=== PATIENT | female | born 1945 | race Caucasian/White ===

== ENCOUNTER 2019-09-22 07:29 | Outpatient (CLI) | payer MEDICARE, OTHER, SELFPAY ==
[2019-09-22 09:07] LABS: Alanine Aminotransferase 17 U/L (4-35); Albumin Level 4.5 g/dL (3.5-5.1); Alkaline Phosphatase 71 U/L (38-126); Aspartate Amino Transferase 27 U/L (14-36); Bilirubin,Total 0.6 mg/dL (0.2-1.3); Blood Urea Nitrogen 14 mg/dL (7-17); Calcium 9.7 mg/dL (8.4-10.2); Carbon Dioxide 29 mmol/L (22-30); Chloride 102 mmol/L (98-107); Estimated Glomerular Filt Rate > 60; Glucose 103 mg/dL (65-105); Potassium 4.3 mmol/L (3.4-5.0); Sodium 135 mmol/L (137-145)
[2019-09-22 09:26] LABS: Parathyroid Intact 43.8 pg/mL (7.5-53.5)
[2019-09-22 09:44] LABS: Vitamin D 25 Hydroxy 69.4 ng/mL
[2019-09-26 19:07] LABS: Collagen Type I C-Telopeptide 308 pg/mL (***)
[2019-09-27 12:07] LABS: Osteocalcin 11 ng/mL (8-32)
== END 2019-09-22 07:30 | disposition home or self-care (01) ==
PROVIDERS: PCP Internal Medicine
DX: M81.0 Age-related osteoporosis without current pathological fracture (principal); Z86.39 Personal history of other endocrine, nutritional and metabolic disease
CPT/HCPCS: 36415; 80053; 82306; 82523; 83937; 83970; 84155; 84165; 84443

== ENCOUNTER 2019-09-24 08:27 | Outpatient (CLI) | payer MEDICARE, OTHER, SELFPAY ==
[2019-09-28 05:43] LABS: Total Volume 2500 mL; Urine Calcium 9.8 mg/dL
== END 2019-09-24 08:28 | disposition home or self-care (01) ==
LOC: ANHLAB 08:28
PROVIDERS: PCP Internal Medicine
DX: M81.0 Age-related osteoporosis without current pathological fracture (principal); Z86.39 Personal history of other endocrine, nutritional and metabolic disease
CPT/HCPCS: 82340

== ENCOUNTER 2019-12-06 11:05 | Outpatient (CLI) | payer MEDICARE, OTHER, SELFPAY ==
[2019-12-06 11:49] LABS: Basophils Absolute Auto 0.1 K/mm3 (0.0-0.1); Eosinophils Absolute Auto 0.4 K/mm3 (0-0.3); Eosinophils Percent Auto 5.2 % (0-4.4); Hematocrit 42.3 % (37.0-47.0); Immature Granulocyte Absolute 0.02 K/mm3 (0.00-0.031); Immature Granulocyte Percent A 0.3 % (0-0.5); Lymphocytes Absolute Auto 1.59 K/mm3 (0.9-3.2); Lymphocytes Percent Auto 20.5 % (18.3-44.2); Mean Corpuscular HGB Conc 33.1 g/dl (32-36); Mean Corpuscular Hemoglobin 31.5 pg (26-34); Mean Corpuscular Volume 95.3 fl (80-100); Monocytes Absolute Auto 0.5 K/mm3 (0.1-0.6); Monocytes Percent Auto 6.8 % (2.6-8.5); Neutrophils Absolute Auto 5.1 K/mm3 (1.3-6.7); Neutrophils Percent Auto 66.2 % (45.5-73.1); Platelet Count Result 289 k/mm3 (150-375); Red Blood Count 4.44 M/mm3 (4.2-5.4); Red Cell Distribution Width 12.5 % (11.5-14.5); White Blood Count 7.8 K/mm3 (4.5-10.0)
[2019-12-06 12:01] LABS: Blood Urea Nitrogen 12 mg/dL (7-17); Carbon Dioxide 29 mmol/L (22-30); Chloride 100 mmol/L (98-107); Cholesterol 233 mg/dL (0-200); Estimated Glomerular Filt Rate > 60; Glucose 119 mg/dL (65-105); HDL Direct 98 mg/dL; Magnesium 2.1 mg/dL (1.6-2.3); Potassium 3.9 mmol/L (3.4-5.0); Sodium 134 mmol/L (137-145); Triglycerides 70 mg/dL (<150)
[2019-12-06 12:07] LABS: Hemoglobin A1C 5.7 % (<5.7)
[2019-12-06 12:12] LABS: LDL Cholesterol Direct 114 mg/dL
[2019-12-06 12:25] LABS: Free T4 Free Thyroxine 0.73 ng/mL (0.78-2.19)
== END 2019-12-06 11:06 | disposition home or self-care (01) ==
PROVIDERS: PCP Internal Medicine; Visit Provider Internal Medicine
DX: R73.03 Prediabetes (principal); Z79.899 Other long term (current) drug therapy
CPT/HCPCS: 36415; 80048; 80061; 83036; 83735; 84439; 84443; 85025

== ENCOUNTER 2019-12-09 13:27 | Outpatient (CLI) | payer MEDICARE, OTHER, SELFPAY ==
--- NOTE | 2019-12-09 | ECHO_ITS ---
Patient Info Name: Brooke Cruz Age: 74 years : 1945 Gender: Female Ht: 62 in Wt: 115 lbs BSA: 1.51 m2 HR: 43 bpm BP: 163 / 82 mmHg Technical Quality: Good Exam Date: 12/09/2019 1:46 PM Exam Location: [facility] Patient Status: Outpatient Admit Date: 12/09/2019 Staff Ordering Physician: Albert Taylor MD Risk Assessment Analyst: Angela Sarmiento RDCS Attending Provider: Albert Taylor MD Referring Physician: Claudia MATT; Exam Type: CA echo doppler color flow Study Info Indications - SYNCOPE /COLLASPE Complete two-dimensional, color flow and Doppler transthoracic echocardiogram is performed. Summary 1. Left ventricular chamber dimension is normal. 2. Left ventricular systolic function is normal, estimated at 60-65%. 3. The left ventricular diastolic function is normal. 4. E/e' 9 is minimally elevated. 5. Left atrial chamber dimension is mildly enlarged. 6. Right atrial chamber dimension is mildly enlarged. 7. There is trace aortic valve regurgitation. 8. There is mild mitral valve regurgitation. 9. There is mild tricuspid valve regurgitation. 10. No pulmonary hypertension, estimated pulmonary arterial systolic pressure is 37 mmHg. Left Ventricle E/e' 9 is minimally elevated. Left ventricular chamber dimension is normal. Left ventricular systolic function is normal, estimated at 60-65%. The left ventricular diastolic function is normal. Right Ventricle Right ventricular chamber dimension is normal. Right ventricular systolic function is normal. Left Atria Left atrial chamber dimension is mildly enlarged. Right Atria Right atrial chamber dimension is mildly enlarged. Aortic Valve The aortic valve is trileaflet. There is no aortic valve stenosis. There is trace aortic valve regurgitation. Pulmonic Valve There is no pulmonic regurgitation. Mitral Valve There is no mitral valve stenosis. There is mild mitral valve regurgitation. Tricuspid Valve There is mild tricuspid valve regurgitation. No pulmonary hypertension, estimated pulmonary arterial systolic pressure is 37 mmHg. Pericardium/Pleural There is no pericardial effusion. Inferior Vena Cava Normal inferior vena cava with >50% collapse upon inspiration consistent with normal right atrial pressure, 5 mmHg. Aorta The aortic root size at the sinus of Valsalva is normal. Left Ventricular Outflow Tract Name Value Normal LVOT 2D LVOT Diameter 2.0 cm LVOT Doppler LVOT Peak Gradient 5 mmHg LVOT Mean Gradient 2 mmHg LVOT VTI 22 cm LVOT VTI/AV VTI Ratio 0.8 LVOT Stroke Volume 66 ml LVOT CO 12.2 l/min LVOT CI 8.1 l/min/m2 Pulmonic Valve Name Value Normal PV Doppler
--- NOTE | 2019-12-13 14:29 | WPDHOLTEREM ---
Holter/Event Monitor Holter/Event Monitor Date of procedure: 12/09/19 Procedure Type: 48 hour holter monitor Indications: Syncope Conclusion: 1. 48 hour holter monitor on 12/09/19. 2. Underlying rhythm is sinus rhythm. HR range 44-105 bpm; average HR 65 bpm. 3. There are 149 premature supraventricular complexes and 11 supraventricular couplets and 1 supraventricular triplet. No supraventricular tachycardia. 4. There are 10,081 premature ventricular complexes, 1,211 ventriuclar bigeminy, 13,551 ventricular trigeminy, 15 ventricular couplets. No ventricular tachycardia. 5. No sinoatrial or atrioventricular blocks. No significant pauses greater than 2 seconds. 6. Patient reports symptoms of lightheadedness, dizziness, shortness of breath that demonstrate 56-71 bpm and PVC's.
== END 2019-12-09 13:28 | disposition home or self-care (01) ==
PROVIDERS: PCP Internal Medicine; Visit Provider Internal Medicine
DX: R55 Syncope and collapse (principal); I36.1 Nonrheumatic tricuspid (valve) insufficiency; I34.0 Nonrheumatic mitral (valve) insufficiency
CPT/HCPCS: 93225; 93226; 93306

== ENCOUNTER 2020-07-18 08:57 | Outpatient (CLI) | payer MEDICARE, OTHER, SELFPAY ==
[2020-07-18 09:51] LABS: Basophils Absolute Auto 0.1 K/mm3 (0.0-0.1); Basophils Percent Auto 1.5 % (0.2-1.2); Eosinophils Absolute Auto 0.5 K/mm3 (0-0.3); Eosinophils Percent Auto 7.6 % (0-4.4); Hematocrit 43.9 % (37.0-47.0); Hemoglobin 14.1 g/dL (12.0-15.0); Immature Granulocyte Absolute 0.03 K/mm3 (0.00-0.031); Immature Granulocyte Percent A 0.4 % (0-0.5); Lymphocytes Absolute Auto 1.65 K/mm3 (0.9-3.2); Mean Corpuscular HGB Conc 32.1 g/dl (32-36); Mean Corpuscular Volume 96.5 fl (80-100); Mean Platelet Volume 10.5 fl (7.4-10.4); Monocytes Absolute Auto 0.6 K/mm3 (0.1-0.6); Monocytes Percent Auto 8.7 % (2.6-8.5); Neutrophils Percent Auto 57.8 % (45.5-73.1); Platelet Count Result 340 k/mm3 (150-375); Red Blood Count 4.55 M/mm3 (4.2-5.4); Red Cell Distribution Width 12.6 % (11.5-14.5); White Blood Count 6.9 K/mm3 (4.5-10.0)
[2020-07-18 09:54] LABS: Add Urine Microscopic? YES; Amorphous Sediment Urine Few; Appearance Urine Cloudy (Clear); Bacteria Urine Trace /hpf; Bilirubin Urine Negative (Negative); Blood Urine Negative (Negative); Color Urine Yellow (Yellow); Glucose Urine UA Negative (Negative); Ketones Urine Negative (Negative); Leukocyte Esterase Ur 3+ LEU/UL (NEGATIVE); Nitrate Urine Negative (Negative); Protein Urine Negative (Negative); Specific Grav Ur 1.012 (1.001-1.035); Squamous Epithelial Cell Urine Rare /hpf (Few); Urobilinogen Urine Negative mg/dL (<2.0)
[2020-07-18 10:15] LABS: Alanine Aminotransferase 16 U/L (4-35); Albumin Level 4.4 g/dL (3.5-5.1); Alkaline Phosphatase 74 U/L (38-126); Anion Gap 7 mmol/L (8-16); Aspartate Amino Transferase 31 U/L (14-36); Bilirubin,Total 0.5 mg/dL (0.2-1.3); Blood Urea Nitrogen 11 mg/dL (7-17); Calcium 9.2 mg/dL (8.4-10.2); Carbon Dioxide 28 mmol/L (22-30); Chloride 98 mmol/L (98-107); Cholesterol 246 mg/dL (0-200); Estimated Glomerular Filt Rate > 60; Glucose 90 mg/dL (65-105); HDL Direct 102 mg/dL; Sodium 133 mmol/L (137-145); Triglycerides 93 mg/dL (<150)
[2020-07-18 10:26] LABS: LDL Cholesterol Direct 115 mg/dL
[2020-07-18 10:51] LABS: Hemoglobin A1C 5.5 % (<5.7)
[2020-07-21 12:44] LABS: Homocysteine 10.1 umol/L (<10.4)
[2020-07-23 00:07] LABS: Vitamin D 1,25 (OH)2 Total 38 pg/mL (18-72); Vitamin D2 1,25 (OH)2 <8 pg/mL; Vitamin D3 1,25 (OH)2 38 pg/mL
== END 2020-07-18 08:58 | disposition home or self-care (01) ==
PROVIDERS: PCP Internal Medicine; Visit Provider Internal Medicine
DX: R73.03 Prediabetes (principal); E55.9 Vitamin D deficiency, unspecified; I10 Essential (primary) hypertension; R79.89 Other specified abnormal findings of blood chemistry; Z51.81 Encounter for therapeutic drug level monitoring; Z79.899 Other long term (current) drug therapy
CPT/HCPCS: 36415; 80053; 80061; 81001; 82652; 83036; 83090; 84443; 85025

== ENCOUNTER 2020-11-14 06:58 | Outpatient (CLI) | payer MEDICARE, SELFPAY ==
[2020-11-14 07:38] LABS: Hemoglobin A1C 5.6 % (<5.7)
[2020-11-14 07:40] LABS: Anion Gap 6 mmol/L (8-16); Blood Urea Nitrogen 14 mg/dL (7-17); Calcium 9.4 mg/dL (8.4-10.2); Carbon Dioxide 28 mmol/L (22-30); Chloride 102 mmol/L (98-107); Cholesterol 253 mg/dL (0-200); Estimated Glomerular Filt Rate > 60; Glucose 105 mg/dL (65-105); HDL Direct 108 mg/dL; Potassium 4.9 mmol/L (3.4-5.0); Sodium 136 mmol/L (137-145); Triglycerides 76 mg/dL (<150)
[2020-11-14 07:50] LABS: LDL Cholesterol Direct 121 mg/dL
== END 2020-11-14 06:59 | disposition home or self-care (01) ==
PROVIDERS: PCP Internal Medicine; Visit Provider Internal Medicine
DX: I10 Essential (primary) hypertension (principal); R73.03 Prediabetes; Z79.899 Other long term (current) drug therapy
CPT/HCPCS: 36415; 80048; 80061; 83036

== ENCOUNTER 2020-11-20 15:36 | Outpatient (CLI) | payer MEDICARE, SELFPAY ==
--- NOTE | ~2020-11-20 | MM_ITS ---
EXAMINATION: MM screening tye BI w anette HISTORY: Screening TECHNIQUE: Craniocaudal and mediolateral oblique 3-D tomosynthesis images were obtained and synthetic 2-D images were generated. CAD analysis was submitted and interpreted. COMPARISON: Comparison to multiple prior studies sequentially, with oldest reviewed study dated 10/31. BREAST PARENCHYMAL COMPOSITION: The breasts are extremely dense, which lowers the sensitivity of mamm ography FINDINGS: There is no evidence of suspicious mass, calcification, or architectural distortion to sugg est malignancy in either breast. There has been no suspicious interval change. IMPRESSION: 1. No mammographic evidence of malignancy. 2. Recommend routine screening mammography in one year. BI-RADS Category 1: Negative Reviewed, dictated and finalized at location A.
== END 2020-11-20 15:37 | disposition home or self-care (01) ==
LOC: ANHIMG 15:43
PROVIDERS: PCP Internal Medicine; Visit Provider Internal Medicine
DX: Z12.31 Encounter for screening mammogram for malignant neoplasm of breast (principal)
CPT/HCPCS: 77063; 77067

== ENCOUNTER 2021-04-08 07:07 | Outpatient (CLI) | payer MEDICARE, SELFPAY ==
[2021-04-08 07:46] LABS: Alanine Aminotransferase 14 U/L (4-35); Albumin Level 4.6 g/dL (3.5-5.1); Alkaline Phosphatase 79 U/L (38-126); Anion Gap 8 mmol/L (8-16); Aspartate Amino Transferase 25 U/L (14-36); Bilirubin,Total 0.3 mg/dL (0.2-1.3); Blood Urea Nitrogen 10 mg/dL (7-17); Calcium 9.7 mg/dL (8.4-10.2); Carbon Dioxide 28 mmol/L (22-30); Chloride 99 mmol/L (98-107); Cholesterol 254 mg/dL (0-200); Estimated Glomerular Filt Rate > 60; Glucose 106 mg/dL (65-110); HDL Direct 106 mg/dL; Sodium 135 mmol/L (137-145); Triglycerides 71 mg/dL (<150)
[2021-04-08 07:57] LABS: LDL Cholesterol Direct 108 mg/dL
[2021-04-08 12:35] LABS: Hemoglobin A1C 5.6 % (<5.7)
[2021-04-12 04:33] LABS: Homocysteine 12.4 umol/L (<10.4)
[2021-04-12 16:38] LABS: Vitamin D 1,25 (OH)2 Total 53 pg/mL (18-72); Vitamin D2 1,25 (OH)2 <8 pg/mL; Vitamin D3 1,25 (OH)2 53 pg/mL
== END 2021-04-08 07:08 | disposition home or self-care (01) ==
PROVIDERS: PCP Internal Medicine; Visit Provider Internal Medicine
DX: E55.9 Vitamin D deficiency, unspecified (principal); I10 Essential (primary) hypertension; Z79.899 Other long term (current) drug therapy; R73.03 Prediabetes; R79.89 Other specified abnormal findings of blood chemistry
CPT/HCPCS: 36415; 80053; 80061; 82652; 83036; 83090; 84439; 84443

== ENCOUNTER 2021-10-15 07:43 | Outpatient (CLI) | payer MEDICARE, SELFPAY ==
[2021-10-15 08:16] LABS: Basophils Absolute Auto 0.1 K/mm3 (0.0-0.1); Basophils Percent Auto 1.7 % (0.2-1.2); Eosinophils Absolute Auto 0.4 K/mm3 (0-0.3); Eosinophils Percent Auto 6.5 % (0-4.4); Hemoglobin 13.9 g/dL (12.0-15.0); Immature Granulocyte Absolute 0.03 K/mm3 (0.00-0.031); Immature Granulocyte Percent A 0.6 % (0-0.5); Lymphocytes Absolute Auto 1.36 K/mm3 (0.9-3.2); Lymphocytes Percent Auto 25.3 % (18.3-44.2); Mean Corpuscular HGB Conc 33.1 g/dl (32-36); Mean Corpuscular Volume 96.8 fl (80-100); Mean Platelet Volume 10.2 fl (7.4-10.4); Monocytes Absolute Auto 0.5 K/mm3 (0.1-0.6); Monocytes Percent Auto 9.3 % (2.6-8.5); Neutrophils Absolute Auto 3.1 K/mm3 (1.3-6.7); Neutrophils Percent Auto 56.6 % (45.5-73.1); Platelet Count Result 309 k/mm3 (150-375); Red Blood Count 4.34 M/mm3 (4.2-5.4); Red Cell Distribution Width 12.6 % (11.5-14.5); White Blood Count 5.4 K/mm3 (4.5-10.0)
[2021-10-15 08:22] LABS: Alanine Aminotransferase 16 U/L (4-35); Albumin Level 4.4 g/dL (3.5-5.1); Alkaline Phosphatase 76 U/L (38-126); Anion Gap 5 mmol/L (8-16); Aspartate Amino Transferase 27 U/L (14-36); Bilirubin,Total 0.4 mg/dL (0.2-1.3); Blood Urea Nitrogen 19 mg/dL (7-17); Calcium 9.1 mg/dL (8.4-10.2); Carbon Dioxide 28 mmol/L (22-30); Chloride 101 mmol/L (98-107); Cholesterol 264 mg/dL (0-200); Estimated Glomerular Filt Rate > 60; Glucose 67 mg/dL (65-110); HDL Direct 84 mg/dL; Sodium 134 mmol/L (137-145); Triglycerides 81 mg/dL (<150)
[2021-10-15 08:32] LABS: LDL Cholesterol Direct 124 mg/dL
[2021-10-15 08:33] LABS: Hemoglobin A1C 5.5 % (<5.7)
[2021-10-15 08:37] LABS: Free T4 Free Thyroxine 0.75 ng/mL (0.78-2.19); Vitamin D 25 Hydroxy 77.2 ng/mL
[2021-10-15 12:15] LABS: Appearance Urine Clear (Clear); Bilirubin Urine Negative (Negative); Color Urine Yellow (Yellow); Glucose Urine UA Negative (Negative); Ketones Urine Negative (Negative); Leukocyte Esterase Ur Trace LEU/UL (Negative); Nitrate Urine Negative (Negative); Protein Urine Negative (Negative); Specific Grav Ur 1.015 (1.001-1.035); Urobilinogen Urine 0.2 mg/dL (<2.0)
[2021-10-15 12:33] LABS: Add Urine Microscopic? YES; Blood Urine Trace-Intact (Negative)
[2021-10-15 12:34] LABS: Bacteria Urine Trace /hpf; RBC Urine 0-2 /hpf (0-2); Squamous Epithelial Cell Urine Rare /hpf (Few)
== END 2021-10-15 07:44 | disposition home or self-care (01) ==
LOC: ANHLAB 07:48
PROVIDERS: PCP Internal Medicine; Visit Provider Internal Medicine
DX: R73.03 Prediabetes (principal); Z79.899 Other long term (current) drug therapy; E55.9 Vitamin D deficiency, unspecified; I10 Essential (primary) hypertension; R79.89 Other specified abnormal findings of blood chemistry
CPT/HCPCS: 36415; 80053; 80061; 81001; 82306; 83036; 83090; 84439; 84443; 85025

== ENCOUNTER 2021-12-31 07:54 | Outpatient (CLI) | payer MEDICARE, SELFPAY ==
[2021-12-31 08:28] LABS: Alanine Aminotransferase 18 U/L (6-35); Albumin Level 4.8 g/dL (3.5-5.1); Alkaline Phosphatase 71 U/L (38-126); Aspartate Amino Transferase 25 U/L (14-36); Bilirubin,Total 0.3 mg/dL (0.2-1.3); Cholesterol 235 mg/dL (0-200); HDL Direct 99 mg/dL; Triglycerides 72 mg/dL (<150)
[2021-12-31 08:40] LABS: LDL Cholesterol Direct 105 mg/dL
== END 2021-12-31 07:55 | disposition home or self-care (01) ==
LOC: ANHLAB 07:57
PROVIDERS: PCP Internal Medicine; Visit Provider Internal Medicine
DX: E78.5 Hyperlipidemia, unspecified (principal)
CPT/HCPCS: 36415; 80061; 80076

== ENCOUNTER 2022-01-09 07:17 | Outpatient (CLI) | payer MEDICARE, SELFPAY ==
--- NOTE | ~2022-01-09 | MM_ITS ---
EXAMINATION: MM screening tye BI w anette HISTORY: Screening mammogram TECHNIQUE: Craniocaudal and mediolateral oblique 3-D tomosynthesis images were obtained and synthetic 2-D images were generated. CAD analysis was submitted and interpreted. COMPARISON: 11/20/2021, 11/2020, 11/23/2018, 11/09/2017 bilateral screening mammogram examinations BREAST PARENCHYMAL COMPOSITION: The breasts are heterogeneously dense, which may obscure small masses . FINDINGS: There is no evidence of suspicious mass, calcification, or architectural distortion to sugg est malignancy in either breast. There has been no suspicious interval change. IMPRESSION: 1. No mammographic evidence of malignancy. 2. Recommend routine screening mammography in one year. BI-RADS Category 1: Negative Reviewed, dictated and finalized at location A.
== END 2022-01-09 07:18 | disposition home or self-care (01) ==
LOC: ANHIMG 07:19
PROVIDERS: PCP Internal Medicine; Visit Provider Internal Medicine
DX: Z12.31 Encounter for screening mammogram for malignant neoplasm of breast (principal)
CPT/HCPCS: 77063; 77067

== ENCOUNTER 2022-04-30 08:56 | Outpatient (CLI) | payer MEDICARE, SELFPAY ==
[2022-04-30 09:25] LABS: Alanine Aminotransferase 21 U/L (6-35); Albumin Level 4.6 g/dL (3.5-5.1); Alkaline Phosphatase 69 U/L (38-126); Anion Gap 11 mmol/L (8-16); Aspartate Amino Transferase 27 U/L (14-36); Bilirubin,Total 0.4 mg/dL (0.2-1.3); Blood Urea Nitrogen 13 mg/dL (7-17); Calcium 9.6 mg/dL (8.4-10.2); Carbon Dioxide 27 mmol/L (22-30); Chloride 97 mmol/L (98-107); Cholesterol 201 mg/dL (0-200); Estimated Glomerular Filt Rate > 60; Glucose 93 mg/dL (65-110); HDL Direct 85 mg/dL; Potassium 3.9 mmol/L (3.4-5.0); Sodium 135 mmol/L (137-145); Triglycerides 85 mg/dL (<150)
[2022-04-30 09:36] LABS: LDL Cholesterol Direct 79 mg/dL
[2022-04-30 09:45] LABS: Hemoglobin A1C 5.9 % (<5.7)
[2022-04-30 09:58] LABS: Free T4 Free Thyroxine 0.77 ng/mL (0.78-2.19); Vitamin D 25 Hydroxy 66.6 ng/mL
== END 2022-04-30 08:57 | disposition home or self-care (01) ==
LOC: ANHLAB 08:58
PROVIDERS: PCP Internal Medicine; Visit Provider Internal Medicine
DX: E55.9 Vitamin D deficiency, unspecified (principal); Z51.81 Encounter for therapeutic drug level monitoring; Z79.899 Other long term (current) drug therapy; Z13.29 Encounter for screening for other suspected endocrine disorder; R73.03 Prediabetes; E78.5 Hyperlipidemia, unspecified
CPT/HCPCS: 36415; 80053; 80061; 82306; 83036; 84439; 84443

== ENCOUNTER 2022-06-03 13:39 | Outpatient (CLI) | payer MEDICARE, SELFPAY ==
--- NOTE | ~2022-06-03 | XR_ITS ---
XR chest 2V DATE: 06/03/2022 14:02 INDICATION: Shortness of breath TECHNIQUE: PA and lateral views COMPARISON: October 19, 2018 2 view chest FINDINGS: Mild cardiac megaly. Mild aortic and great vessel calcification. No hilar or mediastinal en largement. There is old pulmonary granulomatous disease. No pulmonary infiltrate or consolidation, pleural effusion or pulmonary vascular congestion or pneumo thorax. Osteopenia. There is mild thoracic dextro scoliosis and lumbar levoscoliosis. IMPRESSION: Cardiomegaly, aortic atherosclerosis No active pulmonary disease Osteopenia Reviewed, dictated and finalized at location A. L FABRICATOR APPRENTICE
[2022-06-03 13:52] LABS: Basophils Absolute Auto 0.1 K/mm3 (0.0-0.1); Basophils Percent Auto 0.9 % (0.2-1.2); Eosinophils Absolute Auto 0.2 K/mm3 (0-0.3); Eosinophils Percent Auto 2.3 % (0-4.4); Hemoglobin 13.2 g/dL (12.0-15.0); Immature Granulocyte Absolute 0.05 K/mm3 (0.00-0.031); Immature Granulocyte Percent A 0.7 % (0-0.5); Lymphocytes Percent Auto 26.1 % (18.3-44.2); Mean Corpuscular HGB Conc 32.2 g/dl (32-36); Mean Corpuscular Hemoglobin 31.7 pg (26-34); Mean Corpuscular Volume 98.3 fl (80-100); Mean Platelet Volume 9.5 fl (7.4-10.4); Monocytes Absolute Auto 0.6 K/mm3 (0.1-0.6); Neutrophils Absolute Auto 4.2 K/mm3 (1.3-6.7); Platelet Count Result 345 k/mm3 (150-375); Red Blood Count 4.17 M/mm3 (4.2-5.4); Red Cell Distribution Width 12.4 % (11.5-14.5); White Blood Count 6.9 K/mm3 (4.5-10.0)
== END 2022-06-03 13:40 | disposition home or self-care (01) ==
PROVIDERS: PCP Internal Medicine; Visit Provider Internal Medicine
DX: R06.02 Shortness of breath (principal); M85.88 Other specified disorders of bone density and structure, other site; I70.0 Atherosclerosis of aorta; I51.7 Cardiomegaly
CPT/HCPCS: 36415; 71046; 85025

== ENCOUNTER 2022-09-24 09:49 | Outpatient (CLI) | payer MEDICARE, SELFPAY ==
[2022-09-24 10:56] LABS: Alanine Aminotransferase 20 U/L (6-35); Albumin Level 4.5 g/dL (3.5-5.1); Alkaline Phosphatase 78 U/L (38-126); Anion Gap 5 mmol/L (8-16); Aspartate Amino Transferase 27 U/L (14-36); Bilirubin,Total 0.5 mg/dL (0.2-1.3); Blood Urea Nitrogen 16 mg/dL (7-17); Calcium 9.1 mg/dL (8.4-10.2); Carbon Dioxide 28 mmol/L (22-30); Chloride 101 mmol/L (98-107); Cholesterol 200 mg/dL (0-200); Estimated Glomerular Filt Rate > 60; Glucose 88 mg/dL (65-110); HDL Direct 74 mg/dL; Potassium 4.1 mmol/L (3.4-5.0); Sodium 134 mmol/L (137-145); Triglycerides 63 mg/dL (<150)
[2022-09-24 11:06] LABS: LDL Cholesterol Direct 89 mg/dL
[2022-09-24 11:19] LABS: Hemoglobin A1C 5.4 % (<5.7)
[2022-09-24 12:02] LABS: Folic Acid > 20.0 ng/mL (2.76->20)
[2022-09-24 12:40] LABS: Free T4 Free Thyroxine 0.87 ng/mL (0.78-2.19)
== END 2022-09-24 09:50 | disposition home or self-care (01) ==
LOC: ANHLAB 09:51
PROVIDERS: PCP Internal Medicine; Visit Provider Internal Medicine
DX: E78.5 Hyperlipidemia, unspecified (principal); I10 Essential (primary) hypertension; E53.8 Deficiency of other specified B group vitamins; Z13.29 Encounter for screening for other suspected endocrine disorder; Z79.899 Other long term (current) drug therapy; R73.03 Prediabetes
CPT/HCPCS: 36415; 80053; 80061; 82607; 82746; 83036; 84439; 84443

== ENCOUNTER 2023-04-27 09:32 | Outpatient (CLI) | payer MEDICARE, SELFPAY ==
[2023-04-27 19:47] LABS: Alanine Aminotransferase 22 U/L (6-35); Albumin Level 4.6 g/dL (3.5-5.1); Alkaline Phosphatase 82 U/L (38-126); Anion Gap 6 mmol/L (8-16); Aspartate Amino Transferase 34 U/L (14-36); Bilirubin,Total 0.5 mg/dL (0.2-1.3); Blood Urea Nitrogen 15 mg/dL (7-17); Calcium 9.5 mg/dL (8.4-10.2); Carbon Dioxide 29 mmol/L (22-30); Chloride 98 mmol/L (98-107); Cholesterol 225 mg/dL (0-200); Estimated Glomerular Filt Rate > 60; Glucose 104 mg/dL (65-110); HDL Direct 97 mg/dL; Potassium 4.3 mmol/L (3.4-5.0); Sodium 133 mmol/L (137-145); Triglycerides 75 mg/dL (<150)
[2023-04-27 19:57] LABS: LDL Cholesterol Direct 102 mg/dL
[2023-04-27 20:14] LABS: Thyroid Stimulating Hormone 0.948 uIU/mL (0.465-4.680)
[2023-04-27 20:19] LABS: Free T4 Free Thyroxine 0.82 ng/mL (0.78-2.19); Vitamin D 25 Hydroxy 66.5 ng/mL
[2023-04-27 20:46] LABS: Basophils Absolute Auto 0.1 K/mm3 (0.0-0.1); Basophils Percent Auto 1.2 % (0.2-1.2); Eosinophils Absolute Auto 0.4 K/mm3 (0-0.3); Eosinophils Percent Auto 5.5 % (0-4.4); Hematocrit 43.1 % (37.0-47.0); Immature Granulocyte Absolute 0.02 K/mm3 (0.00-0.031); Immature Granulocyte Percent A 0.3 % (0-0.5); Lymphocytes Absolute Auto 1.34 K/mm3 (0.9-3.2); Lymphocytes Percent Auto 19.3 % (18.3-44.2); Mean Corpuscular HGB Conc 32.5 g/dl (32-36); Mean Corpuscular Hemoglobin 32.3 pg (26-34); Mean Corpuscular Volume 99.5 fl (80-100); Mean Platelet Volume 10.7 fl (7.4-10.4); Monocytes Absolute Auto 0.5 K/mm3 (0.1-0.6); Monocytes Percent Auto 7.1 % (2.6-8.5); Neutrophils Absolute Auto 4.6 K/mm3 (1.3-6.7); Neutrophils Percent Auto 66.6 % (45.5-73.1); Platelet Count Result 327 k/mm3 (150-375); Red Blood Count 4.33 M/mm3 (4.2-5.4); Red Cell Distribution Width 12.5 % (11.5-14.5); White Blood Count 6.9 K/mm3 (4.5-10.0)
== END 2023-04-27 09:33 | disposition home or self-care (01) ==
PROVIDERS: PCP Internal Medicine; Visit Provider Internal Medicine
DX: E55.9 Vitamin D deficiency, unspecified (principal); Z13.29 Encounter for screening for other suspected endocrine disorder; Z79.899 Other long term (current) drug therapy; E78.5 Hyperlipidemia, unspecified; I10 Essential (primary) hypertension
CPT/HCPCS: 36415; 80053; 80061; 82306; 84439; 84443; 85025

== ENCOUNTER 2023-06-29 11:47 | Outpatient (CLI) | payer MEDICARE, SELFPAY ==
--- NOTE | ~2023-06-29 | MM_ITS ---
EXAMINATION: MM screening tye BI w anette HISTORY: Screening TECHNIQUE: Craniocaudal and mediolateral oblique 3-D tomosynthesis images were obtained and synthetic 2-D images were generated. CAD analysis was submitted and interpreted. COMPARISON: Comparison to multiple prior studies sequentially, with oldest reviewed study dated 10/31. BREAST PARENCHYMAL COMPOSITION: The breasts are heterogeneously dense, which may obscure small masses FINDINGS: There is no evidence of suspicious mass, calcification, or architectural distortion to sugg est malignancy in either breast. There has been no suspicious interval change. IMPRESSION: 1. No mammographic evidence of malignancy. 2. Recommend routine screening mammography in one year. BI-RADS Category 1: Negative Reviewed, dictated and finalized at location A. LER
== END 2023-06-29 11:48 | disposition home or self-care (01) ==
LOC: ANHIMG 11:50
PROVIDERS: PCP Internal Medicine; Visit Provider Internal Medicine
DX: Z12.31 Encounter for screening mammogram for malignant neoplasm of breast (principal)
CPT/HCPCS: 77063; 77067

== ENCOUNTER 2023-12-03 09:35 | Outpatient (CLI) | payer MEDICARE, SELFPAY ==
[2023-12-03 19:11] LABS: Basophils Absolute Auto 0.1 K/mm3 (0.0-0.1); Basophils Percent Auto 1.4 % (0.2-1.2); Eosinophils Absolute Auto 0.6 K/mm3 (0-0.3); Hematocrit 41.6 % (37.0-47.0); Hemoglobin 13.6 g/dL (12.0-15.0); Immature Granulocyte Absolute 0.03 K/mm3 (0.00-0.031); Immature Granulocyte Percent A 0.4 % (0-0.5); Lymphocytes Absolute Auto 1.44 K/mm3 (0.9-3.2); Lymphocytes Percent Auto 17.7 % (18.3-44.2); Mean Corpuscular HGB Conc 32.7 g/dl (32-36); Mean Corpuscular Hemoglobin 32.2 pg (26-34); Mean Corpuscular Volume 98.3 fl (80-100); Mean Platelet Volume 10.8 fl (7.4-10.4); Monocytes Absolute Auto 0.6 K/mm3 (0.1-0.6); Monocytes Percent Auto 7.5 % (2.6-8.5); Neutrophils Absolute Auto 5.4 K/mm3 (1.3-6.7); Platelet Count Result 287 k/mm3 (150-375); Red Blood Count 4.23 M/mm3 (4.2-5.4); Red Cell Distribution Width 13.1 % (11.5-14.5); White Blood Count 8.1 K/mm3 (4.5-10.0)
[2023-12-03 19:33] LABS: Alanine Aminotransferase 20 U/L (6-35); Albumin Level 4.5 g/dL (3.5-5.1); Alkaline Phosphatase 83 U/L (38-126); Anion Gap 8 mmol/L (4-12); Aspartate Amino Transferase 31 U/L (14-36); Bilirubin,Total 0.5 mg/dL (0.2-1.3); Blood Urea Nitrogen 13 mg/dL (7-17); Calcium 9.8 mg/dL (8.4-10.2); Carbon Dioxide 27 mmol/L (22-30); Chloride 99 mmol/L (98-107); Cholesterol 210 mg/dL (0-200); Estimated Glomerular Filt Rate > 60; Glucose 82 mg/dL (65-110); HDL Direct 92 mg/dL; Potassium 4.2 mmol/L (3.4-5.0); Sodium 134 mmol/L (137-145); Triglycerides 81 mg/dL (<150)
[2023-12-03 19:46] LABS: LDL Cholesterol Direct 97 mg/dL
[2023-12-03 20:04] LABS: Free T4 Free Thyroxine 0.84 ng/mL (0.78-2.19); Vitamin D 25 Hydroxy 84.6 ng/mL
[2023-12-03 21:55] LABS: Hemoglobin A1C 5.6 % (<5.7)
== END 2023-12-03 09:36 | disposition home or self-care (01) ==
LOC: ANHGOSHLAB 09:37
PROVIDERS: PCP Internal Medicine; Visit Provider Internal Medicine
DX: E78.5 Hyperlipidemia, unspecified (principal); I10 Essential (primary) hypertension; E55.9 Vitamin D deficiency, unspecified; R73.03 Prediabetes; Z79.899 Other long term (current) drug therapy; Z13.29 Encounter for screening for other suspected endocrine disorder
CPT/HCPCS: 36415; 80053; 80061; 82306; 83036; 84439; 84443; 85025

== ENCOUNTER 2024-02-25 00:09 | Emergency (ER) | payer MEDICARE, SELFPAY ==
[2024-02-25 00:13] VITALS: BP 214/94; PULSE 84; RESP 15; TEMP 37.1; O2SAT 100
--- NOTE | 2024-02-25 01:26 | ED.GENADULT ---
HPI - General Adult General Chief complaint: Unspecified Stated complaint: lock jaw Time Seen by Provider: 02/25/24 01:17 History of Present Illness HPI narrative: Patient is a 78-year-old female who presents emergency department with chief complaint of TMJ dislocation. Patient reports that she has prior history of TMJ dislocations and tonight was in bed you on felt her jaw popped out of place patient reports that it is very uncomfortable reports she has had some nausea with this as well. Patient reports happened around 11:00 p.m. Related Data Home Medications Medication Instructions Recorded Confirmed mecobalamin (vitamin B12) 1,000 1,000 mcg sublingual DAILY 07/11/19 12/15/23 mcg disintegrating tablet,sublingual multivitamin 1 cap PO DAILY 07/11/19 12/15/23 calcium carbonate 500 mg PO DAILY 03/07/20 12/15/23 cholecalciferol (vitamin D3) 10 10 mcg PO DAILY 03/07/20 12/15/23 mcg (400 unit) capsule Allergies Allergy/AdvReac Type Severity Reaction Status Date / Time No Known Allergies Allergy Verified 02/25/24 00:17 Review of Systems Review of Systems: A 10 system review of systems was completed on the patient and is negative except for what is stated in the HPI. Nursing and ancillary documentation was reviewed. 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 intermediary drug therapy Osteoporosis Pain in left hip Pain in left shoulder Post-menopausal Pre-diabetes Sinus bradycardia Sinus drainage Syncope Ventricular quadrigeminy Vitamin B12 deficiency Vitamin D deficiency Family History Family History Father Hypertension Acute myocardial infarction, Onset Age: 64 Patient's father is Family history of cardiovascular disease Sibling Hypertension Family history of hypercholesterolemia Family history of cardiovascular disease Mother Family history of lung cancer Patient's mother is Social History Social History Smoking status: Never smoker Second hand tobacco smoke exposure: No Alcohol intake: never Lack of Transportation: No Lack of Food: Never True Current Housing: I Have Housing Concerned About Future Housing: No Difficulty Paying Gas/Electric Bills: No Difficulty Paying for Meds: No Currently Unemployed: No Education: High School Diploma/GED Difficulty w/ Childcare or Family Care: No Living arrangements: with family Gender identity (if verbalized by the patient): Female Exam Narrative: GENERAL: Well-appearing, well-nourished, and in no acute distress. HEAD: Normocephalic, atraumatic. EYES: PERRLA and EOMI. ENT: Nares clear, no rhinorrhea or epistaxis. Mucous membranes moist. Mouth is held in an open position NECK: Supple. CHEST: Clear to auscultation. No respiratory distress. HEART: Regular rate and rhythm. No murmur heard. Normal peripheral pulses. ABDOMEN: Soft, nontender, nondistended, normal active bowel sounds. EXTREMITIES: Normal range of motion. No edema. SKIN: Warm, dry, no rash. NEURO: No focal deficits. Alert and oriented x3. PSYCH: Normal mood and affect. Course Vital Signs Vital signs: Vital Signs Temperature 37.1 C 02/25/24 00:13 Pulse Rate 84 02/25/24 00:13 Respiratory Rate 15 02/25/24 00:13 Blood Pressure 214/94 H 02/25/24 00:13 Pulse Oximetry 100 02/25/24 00:13 Oxygen Deliv
== END 2024-02-25 04:49 | disposition home or self-care (01) ==
LOC: ANHED 01:31
PROVIDERS: Emergency Provider Emergency Medicine; PCP Internal Medicine
DX: M26.69 Other specified disorders of temporomandibular joint (principal); I10 Essential (primary) hypertension; E78.5 Hyperlipidemia, unspecified; E55.9 Vitamin D deficiency, unspecified; E53.8 Deficiency of other specified B group vitamins; R73.03 Prediabetes; M81.0 Age-related osteoporosis without current pathological fracture; Z79.899 Other long term (current) drug therapy
CPT/HCPCS: 21480; 99285

== ENCOUNTER 2024-04-19 09:38 | Outpatient (CLI) | payer MEDICARE, SELFPAY ==
--- NOTE | ~2024-04-19 | XR_ITS ---
Clinical Indication: Cough PA and lateral views of the chest: Comparison: 06/03/2022 Findings: The lungs are clear, without evidence of focal consolidation or pleural effusion. Possible COPD. Cardiomediastinal silhouette is within normal limits. Bones and soft tissues are unremarkable. Impression: Clear lungs. Possible COPD. Reviewed, dictated and finalized at location . Impression: Clear lungs. Possible COPD.
== END 2024-04-19 09:39 | disposition home or self-care (01) ==
PROVIDERS: PCP Internal Medicine; Visit Provider Internal Medicine
DX: R05.9 Cough, unspecified (principal)
CPT/HCPCS: 71046

== ENCOUNTER 2024-09-01 15:40 | Outpatient (CLI) | payer MEDICARE, SELFPAY ==
--- NOTE | ~2024-09-01 | MM_ITS ---
EXAMINATION: MM screening tye BI w anette HISTORY: Screening TECHNIQUE: Craniocaudal and mediolateral oblique 3-D tomosynthesis images were obtained and synthetic 2-D images were generated. CAD analysis was submitted and interpreted. COMPARISON: Comparison to multiple prior studies sequentially, with oldest reviewed study dated 11/05. BREAST PARENCHYMAL COMPOSITION: Dense: The breasts are heterogeneously dense, which may obscure small masses FINDINGS: There is no evidence of suspicious mass, calcification, or architectural distortion to sugg est malignancy in either breast. There has been no suspicious interval change. IMPRESSION: 1. No mammographic evidence of malignancy. 2. Recommend routine screening mammography in one year. BI-RADS Category 1: Negative Reviewed, dictated and finalized at location B. DISPENSER
--- OUTSIDE RECORDS SUMMARY | 2024-09-01 15:48 | XMS_ITS | Patient Health Summary ---
Author Organization [facility] Address [address] [place] [address] Care Team Providers Care System Support Developer Name Role Phone Janak Villaseñor MD Primary Care Provider [phone] Note from [facility],non-owned Affiliates and Associated Physician Practices is amultiple site organization consisting of ambulatory clinics and hospital sitesin [place], [place], [place] and [place]. This disclosure is being madepursuant to the Care Everywhere program and may not contain all information available regarding this patient. Last updated 18.[facility] Allergies No known active allergies Medications * Be aware that medications may not be up to date on this document. Alwaysverify current medications with the patient. * alendronate (FOSAMAX) 70 MG tablet(Started 02/12/2017) * aspirin (ASPIRIN) 81 MG tablet Take 81 mg by mouth * Cholecalciferol 1000 UNIT/10ML * losartan-hydroCHLOROthiazide (HYZAAR) 100-25 MG tablet(Started 12/09/2016) * Methylsulfonylmethane (MSM) 1000 MG * multivitamin daily (THERAGRAN) tablet Take 1 Tab by mouth daily with food * oxyCODONE-acetaminophen (PERCOCET) 5-325 MG tablet(Started 03/19/2017) Take 1-2 Tabs by mouth every 6 hours as needed for Pain * ibuprofen (MOTRIN) 600 MG tablet(Started 03/19/2017) Take 1 Tab by mouth every 6 hours as needed for Pain 2 refills remaining * docusate sodium (COLACE) 100 MG capsule(Started 03/19/2017) Take 1 Cap by mouth 2 times daily 2 refills remaining * polyethylene glycol 3350 (MIRALAX) powder(Started 03/19/2017) Take 17 g by mouth once daily 1 refill remaining * nitrofurantoin monohyd macro crystals (MACROBID) 100 MG capsule(Started 03/19/2017) Take 1 Cap by mouth once daily While catheter is in. Active Problems No known active problems Social History Tobacco Use Types Packs/Day Years Used Date Smoking Tobacco: Never Smokeless Tobacco: Never Alcohol Use Standard Drinks/Week Comments Yes 1 (1 standard drink = 0.6 oz pur e alcohol) Sex and Gender Information Value Date Recorded Sex Assigned at Not on file Gender Identity Female 03/18/2017 8:47 AM CDT Sexual Orientation Not on file Last Filed Vital Signs Vital Sign Reading Time Taken Comments Blood Pressure 130/74 04/21/2017 9:46 AM CDT Pulse 73 03/19/2017 8:51 AM CDT Temperature 37.1 C (98.8 F) 03/19/2017 8:51 AM CDT Respiratory Rate 16 03/19/2017 8:51 AM CDT Oxygen Saturation 100% 03/19/2017 8:51 AM CDT Inhaled Oxygen Concentration - - Weight 53.1 kg (117 lb) 04/21/2017 9:46 AM CDT Height 157.5 cm (5' 2 ) 04/21/2017 9:46 AM CDT Body Mass Index 21.4 04/21/2017 9:46 AM CDT Medical Devices Implanted Type Area Nurses Educator Device Identifier Shelf Expiration Date Model / Serial / Lot Graft Tissue Xenform Ftl Bvn Drml Mtrx - Sgtin [id number] Implanted:Qty: 1 on 03/18/2017 by Dennis Ahamdi MD at [facility] Vagina [employer] 11/16/2018 [id number] / GTIN [id number] / [id number] Description:Implanted into a nterior vaginal wall. Sys Ureth Supp Obtryx Midurethral Trnstr - Sgtin [id number] Implanted:Qty: 1 on 03/18/2017 by Dennis Ahmadi MD at [facility] Vagina [employer] Scimed 07/31/2019 [id number] / GTIN [id number] / [id number] Procedures * DERMATOPATHOLOGY(Performed 01/19/2024) * CULTURE URINE(Performed 04/21/2017) * URINALYSIS - POINT OF CARE (AMB) SLU(Performed 04/21/2017) * CARDIAC EKG ORDER(Performed 03/20/2017) * CARDIAC RHYTHM STRIP ORDER(Performed 03/20/2017) * PATHOLOGY TISSUE EXAM (STL)(Performed 03/18/2017) Performed for Cystocele with rectocele, Diagnosis unknown, JIN (stress urinary incontinence, female), Urinary frequency * ENDOTRACHEAL TUBE NOTE(Performed 03/18/2017) * COLPOPEXY UTEROSACRAL (VAGINAL APPROACH)(Performed 03/18/2017) Performed for Cystocele with rectocele, Diagnosis unknown, JIN (stress urinary incontinence, female), Urinary frequency * CYSTOSCOPY (FLEXIBLE/RIGID)(Performed 03/18/2017) Performed for Cystocele with rectocele, Diagnosis unknown, JIN (stress urinary incontinence, female), Urinary frequency * SLING OPERATION TRANSOBTURATOR(Performed 03/18/2017) Performed for Cystocele with rectocele, Diagnosis unknown, JIN (stress urinary incontinence, female), Urinary frequency * HYSTERECTOMY VAGINAL WITH ANTERIOR/POSTERIOR REPAIR(Performed 03/18/2017) Performed for Cystocele with rectocele, Diagnosis unknown, JIN (stress urinary incontinence, female), Urinary frequency * BLOOD TYPE VERIFICATION(Performed 03/18/2017) * TYPE + SCREEN PANEL(Performed 03/18/2017) * POTASSIUM BLOOD(Performed 03/18/2017) Performed for Preop examination * CBC W/O DIFFERENTIAL(Performed 03/18/2017) Performed for Preop examination * DERMATOPATHOLOGY(Performed 08/25/2016) Results * DERMATOPATHOLOGY (01/19/2024 12:00 AM CDT) Only the most recent of2 resultswithin the time period is included. Case Report Dermatopathology Report Case: [id number] Authorizing Provider: Kristofer Farley MD Collected: 01/19/2024 12:00 AM Ordering Location: [facility] - Received: 01/22/2024 08:24 AM DermPath Lab Pathologist: Sandhya Vail MD Specimen: Skin, right superior forehead 4:45 PM CDT DERMATOPATHOLOGY LABORATORY Final Diagnosis Specimen A. 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 The specimen consists of a shave biopsy measuring 13h76c5 mm. Jar 0. 4:45 PM CDT DERMATOPATHOLOGY LABORATORY Microscopic Description Specimen A. SKIN, right superior forehead: There is alternating orthokeratosis and parakeratosis. Along the undersurface of the epidermis, there are buds of atypical keratinocytes in a disorderly arrangement. There is prominent pigmentation in some of the keratinocytes. Sections show a perifollicular lymphohistiocytic infiltrate with associated intrafollicular Demodex mite. 4:45 PM CDT DERMATOPATHOLOGY LABORATORY Disclaimer An external and internal positive and negative controls are appropriate for the histochemical, immunohistochemical and immunofluorescence stain(s) in this case (if any), except where stated explicitly. The performance characteristics of the stain(s) cited in this report were developed and its performance characteristic determined by the Dermatopathology Laboratory at [facility], directed by Dr. Ricki Adams. These tests need not be, and therefore are not, approved by the [place] Food and Drug Administration. The tests are used for clinical purposes. Billing Codes Specimen Charges Stain Charges 78291 1 4:45 PM CDT DERMATOPATHOLOGY LABORATORY Embedded Images 4:45 PM CDT DERMATOPATHOLOGY LABORATORY Pathology/Cytolog y TISSUE SPECIMEN FROM SKIN / Unknown 01/19/2024 01/22/2024 8:24 AM CDT Kristofer Farley MD LAB - PATHOLOGY/CYTO LOGY ORDERABLES DERMATOPATHOLOGY LABORATORY [facility] - Department of Dermatology [address], [address] [phone] * CULTURE URINE (04/21/2017 10:17 AM CDT) Urine Culture Routine SEE NOTE [facility] ([facility]) Comment: CULTURE, URINE, ROUTINE MICRO NUMBER: [id number] TEST STATUS: FINAL SPECIMEN SOURCE: URINE SPECIMEN QUALITY: ADEQUATE RESULT: No Growth REPORT COMMENT: SPECIMEN TYPE->URINE Test Performed at: [facility] [address] [id number] MARK DAVALOS MD 04/21/2017 10:1 7 AM CDT 04/21/2017 10:18 PM CDT Dennis Ahmadi MD LAB - MICROBIOLOGY O RDERABLES Performing Organization Address City/[facility]/ZIP Co de Phone Number [facility] ([facility]) * URINALYSIS - POINT OF CARE (AMB) U (04/21/2017) Glucose UA neg [facility] Bilirubin UA POCT neg [facility] Ketones UA POCT neg [facility] Specific Chualar UA 1.010 [facility] Blood Urine POCT pos [facility] pH UA 9 [facility] Protein UA pos [facility] Urobilinogen UA neg [facility] Nitrite UA neg [facility] WBC UA neg [facility] Urine specimen (specimen) 04/21/2017 Dennis Ahmadi MD LAB - POINT OF CARE ORDERABLES Performing Organization Address City/[facility]/ZIP Co de Phone Number [facility] * CARDIAC EKG ORDER (03/20/2017 9:37 PM CDT) Narrative 03/20/2017 9:37 PM CDT Ordered by an unspecified provider. Scanned Document CARDIAC SERVICES ORD ERABLES * CARDIAC RHYTHM STRIP ORDER (03/20/2017 9:36 PM CDT) Narrative 03/20/2017 9:36 PM CDT Ordered by an unspecified provider. Scanned Document CARDIAC SERVICES ORD ERABLES * GROSS + MICRO EXAM (STL) (03/18/2017 1:38 PM CDT) Case Report Surgical Pathology Report Case: [id number] Authorizing Provider: Dennis Ahmadi MD Collected: 03/18/2017 01:38 PM Ordering Location: [facility] Received: 03/19/2017 09:31 AM Pathologist: Monty Israel MD Specimen: Uterus w Cervix, UTERUS AND CERVIX 03/20/2017 5:04 PM CDT [facility] Final Diagnosis 1. Uterus with cervix, total hysterectomy: -- Cervix with squamous metaplasia -- Atrophic endometrium -- Myometrium with adenomyosis -- Uterine serosa with unremarkable histopathology SD/na 03/20/2017 5:04 PM CDT [facility] Clinical History Cystocele with rectocele 03/20/2017 5:04 PM CDT [facility] Gross Description The specimen is labeled Brooke Cruz and uterus and cervix. It is received in formalin. It is a 32.18 gm uterine corpus with attached cervix, 8 x 3.5 x 2.5 cm. The serosa is dusky and smooth with no obvious adhesions. The ectocervix measures up to 3.6 cm in diameter. The external os is slit-like, 0.4 cm in length and is surrounded by diffuse areas of hemorrhage. The endocervical canal measures 3.2 cm in length. The uterine cavity measures 2 x 1.5 cm and is lined by soft glistening red-sweeney endometrium, up to 0.1 cm in thickness. The myometrium has a maximum thickness of 1.2 cm. No discrete myomatous nodules or any other lesions are seen on the cut surfaces. Java J2Ee Lead sections of the specimen are submitted as follows: A1 and A2 - Cervix, A3 and A4 - Anterior and posterior endomyometrium and serosa. LL/scs 03/20/2017 5:04 PM CDT [facility] Microscopic Description There is no evidence of atypia or malignancy. SD/na 03/20/2017 5:04 PM CDT [facility] Disclaimer All histochemical and/or immunohistochemical results are interpreted with controls that demonstrate appropriate staining reactions before reporting results. Note on use of immunocytochemistry reagents: This test was developed and its performance characteristic determined by [facility], Department of Laboratory Medicine. It has not been cleared or approved by the U.S. Food and Drug Administration (FDA). The FDA has determined that such clearance or approval is not necessary. The test is used for clinical purpose. It should not be regarded as investigational or for research. This laboratory is certified to perform high complexity testing. 03/20/2017 5:04 PM CDT [facility] Embedded Images 03/20/2017 5:04 PM CDT [facility] Pathology/Cytolo gy SPECIMEN FROM UTERINE CERVIX OBTAINED BY HYSTERECTOMY / Unknown 03/18/2017 1:38 PM CDT 03/19/2017 9:31 AM CDT Dennis Ahmadi MD LAB - PATHOLOGY/CYTO LOGY ORDERABLES Performing Organization Address [facility] Co de Phone Number [facility] [address] [place] [address] * BLOOD TYPE VERIFICATION (03/18/2017 11:06 AM CDT) ABO O 03/18/2017 11:49 AM CDT [facility] Rh Type Positive 03/18/2017 11:49 AM CDT [facility] Blood Bank BLOOD SPECIMEN / Unknown Lab Venipuncture / Unknown 03/18/2017 11:06 AM CDT 03/18/2017 11:06 AM CDT Dennis Ahmadi MD LAB - BLOOD BANK ORD ERABLES Performing Organization Address City/[facility] Co de Phone Number [facility] [address] [place] [address] * TYPE + SCREEN PANEL (03/18/2017 10:43 AM CDT) ABO O 03/18/2017 11:49 AM CDT [facility] Rh Type Positive 03/18/2017 11:49 AM CDT [facility] Antibody Screen Negative 03/18/2017 11:49 AM CDT [facility] Blood Bank BLOOD SPECIMEN / Unknown Venipuncture / Unknown 03/18/2017 10:43 AM CDT 03/18/2017 11:02 AM CDT Parth Lerner MD LAB - BLOOD BANK ORD ERABLES [facility] [address] * CBC W/O DIFFERENTIAL (03/18/2017 10:42 AM CDT) WBC 6.5 4.4 - 10.7 x10E9/L 03/18/2017 11:07 AM CDT [facility] RBC 4.36 3.80 - 5.20 x10E12/L 03/18/2017 11:07 AM CDT [facility] Hemoglobin 13.9 12.0 - 15.6 gm/dL 03/18/2017 11:07 AM CDT [facility] Hematocrit 40.4 35.9 - 45.5 % 03/18/2017 11:07 AM CDT [facility] MCV 92.7 80.7 - 98.3 fl 03/18/2017 11:07 AM CDT [facility] MCH 31.9 26.7 - 34.0 pg 03/18/2017 11:07 AM CDT [facility] MCHC 34.4 30.8 - 35.9 gm/dL 03/18/2017 11:07 AM CDT [facility] Platelet Count 262 153 - 416 x10E9/L 03/18/2017 11:07 AM CDT [facility] RDW-CV 12.5 12.1 - 14.9 % 03/18/2017 11:07 AM CDT [facility] MPV 10.6 9.4 - 12.9 fl 03/18/2017 11:07 AM CDT [facility] Blood BLOOD SPECIMEN / Unknown Venipuncture / Unknown 03/18/2017 10:42 AM CDT 03/18/2017 11:03 AM CDT Dennis Ahmadi MD LAB - HEMATOLOGY ORD ERABLES [facility] [address] [place] [address] * POTASSIUM BLOOD (03/18/2017 10:42 AM CDT) Potassium 3.9 3.5 - 5.1 mmol/L 03/18/2017 11:26 AM CDT [facility] Blood BLOOD SPECIMEN / Unknown Venipuncture / Unknown 03/18/2017 10:42 AM CDT 03/18/2017 11:02 AM CDT Parth Lerner MD LAB - CHEMISTRY ARRON GARCIA [facility] Organization Address City/State/ZIP Co de Phone Number [facility] [address] [place], [place] [id number] Care Teams System Support Developer Relationship Specialty Start Date End Date Janak Villaseñor MD PCP - General Internal Medicine 03/18/17
--- OUTSIDE RECORDS SUMMARY | 2024-09-01 15:48 | XMS_ITS | Referral Summary ---
Author Organization [facility] [employer] Address [address] [place] [address] Care Team Providers Care Shingle Bolt Cutter Name Role Phone Janak Villaseñor MD Primary Care Provider [phone] Source Comments [facility] [employer],non-owned Affiliates and Associated Physician Practices is amultiple site organization consisting of ambulatory clinics and hospital sitesin [place], [place], [place] and [place]. This disclosure is being madepursuant to the Care Everywhere program and may not contain all information available regarding this patient. Last updated 18.[employer] Allergies No known active allergies Medications * Be aware that medications may not be up to date on this document. Alwaysverify current medications with the patient. Medication Sig Dispensed Refills Start Date End Date Status alendronate (FOSAMAX) 70 MG tablet 02/12/2017 Active aspirin (ASPIRIN) 81 MG tablet Take 81 mg by mouth Active Cholecalciferol 1000 UNIT/10ML Active losartan-hydroCHLOROt hiazide (HYZAAR) 100-25 MG tablet 12/09/2016 Active Methylsulfonylmethane (MSM) 1000 MG Active multivitamin daily (THERAGRAN) tablet Take 1 Tab by mouth daily with food Active oxyCODONE-acetaminoph en (PERCOCET) 5-325 MG tablet Take 1-2 Tabs by mouth every 6 hours as needed for Pain 40 Tab 03/19/2017 Active ibuprofen (MOTRIN) 600 MG tablet Take 1 Tab by mouth every 6 hours as needed for Pain 60 Tab 2 03/19/2017 Active docusate sodium (COLACE) 100 MG capsule Take 1 Cap by mouth 2 times daily 60 Cap 2 03/19/2017 Active polyethylene glycol 3350 (MIRALAX) powder Take 17 g by mouth once daily 1 Bottle 1 03/19/2017 Active nitrofurantoin monohyd macro crystals (MACROBID) 100 MG capsule Take 1 Cap by mouth once daily While catheter is in. 14 Cap 03/19/2017 Active Active Problems No known active problems Social [...] Mass Index 21.4 04/21/2017 9:46 AM CDT Plan of Treatment Not on file Medical Devices Implanted Type Area Packing And Final Assembly Supervisor Device Identifier Shelf Expiration Date Model / Serial / Lot Graft Tissue Xenform Ftl Bvn Drml Mtrx - Sgtin [id number] Implanted:Qty: 1 on 03/18/2017 by Dennis Ahmadi MD at [facility] Vagina [employer] 11/16/2018 [id number] / GTIN [id number] / [id number] Description:Implanted into a nterior vaginal wall. Sys Ureth Supp Obtryx Midurethral Trnstr - Sgtin [id number] Implanted:Qty: 1 on 03/18/2017 by Dennis Ahmadi MD at [facility] Vagina [employer] Scimed 07/31/2019 [id number] / GTIN [id number] / [id number] Advance Directives * Full Code (Latest Code Status on File) Date Activated Date Inactivated Comments 03/18/2017 5:44 PM 03/19/2017 4:02 PM Care Teams Shingle Bolt Cutter Relationship Specialty Start Date End Date Janak Villaseñor MD PCP - General Internal Medicine 03/18/17
--- OUTSIDE RECORDS SUMMARY | 2024-09-01 15:48 | XMS_ITS | Clinical Summary ---
Author Organization [facility] [employer] Address [address] [place] [address] Care Team Providers Care Benefits Clerk Name Role Phone Janak Villaseñor MD Primary Care Provider [phone] Source Comments [employer],non-owned Affiliates and Associated Physician Practices is amultiple site organization consisting of ambulatory clinics and hospital sitesin [place], [place], [place] and [place]. This disclosure is being madepursuant to the Care Everywhere program and may not contain all information available regarding this patient. Last updated 18.[employer] Allergies No known active allergies Medications * [...] 04/21/2017 9:46 AM CDT Plan of Treatment Health Maintenance Due Date Last Done Comments BONE DENSITY TESTING 1945 MEDICARE AWV 12 MONTHS 1945 HEPATITIS C SCREENING 08/11/1963 DTAP/TDAP/TD VACCINES (1 - Tdap) 1964 PNEUMOCOCCAL VACCINE 50+ (1 of 1 - PCV) 1995 ZOSTER VACCINE (1 of 2) 1995 Respiratory Syncytial Virus (RSV) Vaccine Pt: or over 60 yrs (1 - 1-dose 75+ series) 2020 COVID-19 VACCINE ( - 2023-2 5 season) 2024 INFLUENZA VACCINE (#1) 2024 DEPRESSION SCREENING 07/20/2024 HEPATITIS B VACCINE Aged Out No longe r eligible based on patient's age to complete this topic HIB VACCINE Aged Out No longer eligi ble based on patient's age to complete this topic HPV VACCINE Aged Out No longer eligi ble based on patient's age to complete this topic MENINGOCOCCAL (Group B) VACCINE Aged Out No longer eligible based on patient's age to complete this topic MENINGOCOCCAL VACCINE Aged Out No james abraham eligible based on patient's age to complete this topic Medical Devices Implanted Type Area Form Builder Device Identifier Shelf Expiration Date Model / Serial / Lot Graft Tissue Xenform Ftl Bvn Drml Mtrx - Sgtin [id number] Implanted:Qty: 1 on 03/18/2017 by Dennis Ahmadi MD at [facility] Vagina [employer] 11/16/2018 [id number] / GTIN [id number] / [id number] Description:Implanted into a nterior vaginal wall. Sys Ureth Supp Obtryx Midurethral Trnstr - Sgtin [id number] Implanted:Qty: 1 on 03/18/2017 by Dennis Ahmadi MD at [facility] Vagina [employer] Sc[employer]ed 07/31/2019 [id number] / GTIN [id number] / [id number] Advance Directives * Full Code (Latest Code Status on File) Date Activated Date Inactivated Comments 03/18/2017 5:44 PM 03/19/2017 4:02 PM Care Teams Benefits Clerk Relationship Specialty Start Date End Date Janak Villaseñor MD PCP - General Internal Medicine 03/18/17
--- OUTSIDE RECORDS SUMMARY | 2024-09-01 15:48 | XMS_ITS | Referral Summary ---
Author Organization [facility] Address [address] [place] [id number] Care Team Providers Care Network Control Operator Name Role Phone Albert Taylor MD Primary Care Provider [phone] Allergies No known active allergies Medications multivitamin tablet Take 1 tablet by mouth 3 (three) times a day with meals Active losartan (COZAAR) 100 mg tablet 06/10/2019 Active calcium carbonate-vitami n D3 (CALTRATE 600 + D) 1500 mg (600 mg elemental) -400 units per tablet Take 1 tablet by mouth daily Active cyanocobalamin (vitamin B-12) 1,000 mcg tabletIndication s:Prevention of Vitamin B12 Deficiency Take 1,000 mcg by mouth daily Active folic acid (FOLVITE) 1 mg tablet Take 1 mg by mouth daily Active ubidecarenone/re d yeast rice (CO Q10-RED YEAST RICE ORAL) Take by mouth Active red yeast rice 600 mg capsule Take by mouth Active docosahexanoic acid/epa (FISH OIL ORAL) Take by mouth Active Active Problems Problem Noted Date Diagnosed Date Age-related osteoporosis wit hout current pathological fracture 07/26/2019 History of vitamin D deficiency 07/26/2019 HTN (hypertension) 07/26/2019 Social History Tobacco Use Types Packs/Day Years Used Date Smoking Tobacco: Never Smokeless Tobacco: Never Personal Safety Answer Date Recorded Getting School Help Needed Not on file 10/03 Comments Unknown Sex and Gender Information Value Date Recorded Sex Assigned at Not on file Legal Sex Female 3:10 PM CDT Gender Identity Not on file Sexual Orientation Not on file Last Filed Vital Signs Vital Sign Reading Time Taken Comments Blood Pressure 139/78 07/26/2019 7:54 AM PRODUCTION REPRODUCTION MANAGER Pulse 59 07/26/2019 7:54 AM PRODUCTION REPRODUCTION MANAGER Temperature 36.8 C (98.2 F) 07/26/2019 7:54 AM PRODUCTION REPRODUCTION MANAGER Respiratory Rate - - Oxygen Saturation - - Inhaled Oxygen Concentration - - Weight 50.9 kg (112 lb 3.2 oz) 07/26/2019 7:54 A M PRODUCTION REPRODUCTION MANAGER Height 154.4 cm (5' 0.8 ) 07/26/2019 7:54 AM PRODUCTION REPRODUCTION MANAGER Body Mass Index 21.34 07/26/2019 7:54 AM PRODUCTION REPRODUCTION MANAGER Plan of Treatment Not on file Insurance MEDICARE [facility] [place] Care Teams Network Control Operator Relationship Specialty Start Date End Date Albert Taylor MD [address] [facility] [address] [place] [address] PCP - General Internal Medicine 12/02/18
--- OUTSIDE RECORDS SUMMARY | 2024-09-01 15:48 | XMS_ITS | Encounter Summary ---
Author Organization [facility] Address [address] [facility] [place] [address] Care Team Providers Care Harness Maker Name Role Phone Janak Villaseñor MD Primary Care Provider [phone] Encounter Details Date Type Department Care Team (Late st Contact Info) Description 01/22/2024 Lab Requisition [facility] - DermPath Lab [address] [facility], [place] [id number] Kristofer Farley MD [address] [place] [address] Social History Tobacco Use Types Packs/Day Years Used Date Smoking Tobacco: Never Smokeless Tobacco: Never Alcohol Use Standard Drinks/Week Comments Yes 1 (1 standard drink = 0.6 oz pur e alcohol) Sex and Gender Information Value Date Recorded Sex Assigned at Not on file Gender Identity Female 03/18/2017 8:47 AM CDT Sexual Orientation Not on file documented as of this encounter Plan of Treatment Not on file documented as of this encounter Procedures Procedure Name Priority Date/Time Associated Diagnosis Comments DERMATOPATHOLOGY Routine 01/19/2024 12:0 0 AM CDT documented in this encounter Results * DERMATOPATHOLOGY (01/19/2024 12:00 AM CDT) Case Report Dermatopathology Report Case: [id number] Authorizing Provider: Kristofer Farley MD Collected: 01/19/2024 12:00 AM Ordering Location: [facility] - Received: 01/22/2024 08:24 AM [...] specimen consists of a shave biopsy measuring 80q80m9 mm. Jar 0. 4:45 PM CDT DERMATOPATHOLOGY [...] characteristic determined by the Dermatopathology Laboratory at [facility], directed by Dr. Ricki Adams. These tests need not be, and therefore are not, approved by the [place] Food and Drug Administration. The tests are used for clinical purposes. Billing Codes Specimen Charges Stain Charges 86719 1 4:45 PM CDT DERMATOPATHOLOGY LABORATORY Embedded Images 4:45 PM CDT DERMATOPATHOLOGY LABORATORY Pathology/Cytolog y TISSUE SPECIMEN FROM SKIN / Unknown 01/19/2024 01/22/2024 8:24 AM CDT Kristofer Farley MD LAB - PATHOLOGY/CYTO LOGY ORDERABLES DERMATOPATHOLOGY LABORATORY [facility] - Department of Dermatology [facility] Specialized Medicine [address] [place] [address], [address] [phone] documented in this encounter Visit Diagnoses Not on filedocumented in this encounter Care Teams Harness Maker Relationship Specialty Start Date End Date Janak Villaseñor MD PCP - General Internal Medicine 03/18/17 documented as of this encounter
--- OUTSIDE RECORDS SUMMARY | 2024-09-01 15:48 | XMS_ITS | Clinical Summary ---
Author Organization [facility] Address [address] [place] [id number] Care Team Providers Care Retail Training Manager Name Role Phone Albert Taylor MD Primary Care Provider [phone] Allergies No known active allergies Medications multivitamin [...] on file Sexual Orientation Not on file Obstetrics History Last Filed Vital Signs Vital Sign Reading Time Taken Comments Blood Pressure 139/78 07/26/2019 7:54 AM DEPUTY DIRECTOR OF PUBLIC WORKS Pulse 59 07/26/2019 7:54 AM DEPUTY DIRECTOR OF PUBLIC WORKS Temperature 36.8 C (98.2 F) 07/26/2019 7:54 AM DEPUTY DIRECTOR OF PUBLIC WORKS Respiratory Rate - - Oxygen Saturation - - Inhaled Oxygen Concentration - - Weight 50.9 kg (112 lb 3.2 oz) 07/26/2019 7:54 A M DEPUTY DIRECTOR OF PUBLIC WORKS Height 154.4 cm (5' 0.8 ) 07/26/2019 7:54 AM DEPUTY DIRECTOR OF PUBLIC WORKS Body Mass Index 21.34 07/26/2019 7:54 AM DEPUTY DIRECTOR OF PUBLIC WORKS Plan of Treatment Not on file Insurance MEDICARE [facility] [place] Care Teams Retail Training Manager Relationship Specialty Start Date End Date Albert Taylor MD [address] [facility] [address] [place] [address] PCP - General Internal Medicine 12/02/18
== END 2024-09-01 15:41 | disposition home or self-care (01) ==
PROVIDERS: PCP Internal Medicine; Visit Provider Internal Medicine
DX: Z12.31 Encounter for screening mammogram for malignant neoplasm of breast (principal)
CPT/HCPCS: 77063; 77067

== ENCOUNTER 2024-10-26 00:22 | Day surgery (SDC) | payer MEDICARE, SELFPAY ==
[2024-10-19 09:48] VITALS: BMI 21.0
--- OUTSIDE RECORDS SUMMARY | 2024-10-26 00:28 | XMS_ITS | Clinical Summary ---
Author Organization [facility] Address [address] [place] [id number] Care Team Providers Care Rubber Curer Name Role Phone Albert Taylor MD Primary Care Provider [phone] Allergies No known active allergies Medications multivitamin [...] Comments Blood Pressure 139/78 07/26/2019 7:54 AM PULVERIZER MILL OPERATOR Pulse 59 07/26/2019 7:54 AM PULVERIZER MILL OPERATOR Temperature 36.8 C (98.2 F) 07/26/2019 7:54 AM PULVERIZER MILL OPERATOR Respiratory Rate - - Oxygen Saturation - - Inhaled Oxygen Concentration - - Weight 50.9 kg (112 lb 3.2 oz) 07/26/2019 7:54 A M PULVERIZER MILL OPERATOR Height 154.4 cm (5' 0.8 ) 07/26/2019 7:54 AM PULVERIZER MILL OPERATOR Body Mass Index 21.34 07/26/2019 7:54 AM PULVERIZER MILL OPERATOR Plan of Treatment Not on file Insurance MEDICARE [facility] [place] Care Teams Rubber Curer Relationship Specialty Start Date End Date Albert Taylor MD [address] [facility] [address] [place] [address] PCP - General Internal Medicine 12/02/18
--- OUTSIDE RECORDS SUMMARY | 2024-10-26 00:28 | XMS_ITS | Encounter Summary ---
Author Organization [facility] Address [address] [place] [address] Care Team Providers Care Telecommunications Manager Name Role Phone Janak Villaseñor MD Primary Care Provider [phone] Encounter Details Date Type Department Care Team (Late st Contact Info) Description 01/22/2024 Lab Requisition [facility] - DermPath Lab [address] [facility] [address], [place] [id number] Kristofer Farley MD [address] [place] [address] Social History Tobacco Use Types Packs/Day Years [...] AM CDT) Case Report Dermatopathology Report Case: [id number] Authorizing Provider: Kristofer Farley MD Collected: 01/19/2024 12:00 AM Ordering Location: [facility] - Received: 01/22/2024 08:24 AM [...] specimen consists of a shave biopsy measuring [id number] mm. Jar 0. 4:45 PM CDT DERMATOPATHOLOGY [...] characteristic determined by the Dermatopathology Laboratory at [facility], directed by Dr. Ricki Adams. These tests need not be, and therefore are not, approved by the [place] Food and Drug Administration. The tests are used for clinical purposes. Billing Codes Specimen Charges Stain Charges 53239 1 4:45 PM CDT DERMATOPATHOLOGY LABORATORY Embedded Images 4:45 PM CDT DERMATOPATHOLOGY LABORATORY Pathology/Cytolog y TISSUE SPECIMEN FROM SKIN / Unknown 01/19/2024 01/22/2024 8:24 AM CDT Kristofer Farley MD LAB - PATHOLOGY/CYTO LOGY ORDERABLES DERMATOPATHOLOGY LABORATORY [facility] - Department of Dermatology [facility] Specialized Medicine [address] [place] [address], [address] [phone] documented in this encounter Visit Diagnoses Not on filedocumented in this encounter Care Teams Telecommunications Manager Relationship Specialty Start Date End Date Janak Villaseñor MD PCP - General Internal Medicine 03/18/17 documented as of this encounter
--- OUTSIDE RECORDS SUMMARY | 2024-10-26 00:28 | XMS_ITS | Referral Summary ---
Author Organization [facility] Address [address] [place] [phone] Care Team Providers Care Vibration Engineer Name Role Phone Albert Taylor MD Primary Care Provider [phone] Allergies No known active allergies Medications multivitamin [...] Comments Blood Pressure 139/78 07/26/2019 7:54 AM SLIPPER MAKER Pulse 59 07/26/2019 7:54 AM SLIPPER MAKER Temperature 36.8 C (98.2 F) 07/26/2019 7:54 AM SLIPPER MAKER Respiratory Rate - - Oxygen Saturation - - Inhaled Oxygen Concentration - - Weight 50.9 kg (112 lb 3.2 oz) 07/26/2019 7:54 A M SLIPPER MAKER Height 154.4 cm (5' 0.8 ) 07/26/2019 7:54 AM SLIPPER MAKER Body Mass Index 21.34 07/26/2019 7:54 AM SLIPPER MAKER Plan of Treatment Not on file Insurance MEDICARE [facility] [place] Care Teams Vibration Engineer Relationship Specialty Start Date End Date Albert Taylor MD [address] [facility] [address] [place] [address] PCP - General Internal Medicine 12/02/18
--- OUTSIDE RECORDS SUMMARY | 2024-10-26 00:28 | XMS_ITS | Clinical Summary ---
Author Organization [facility] [employer] Address [address] [facility] [place] [address] Care Team Providers Care Skidder Name Role Phone Janak Villaseñor MD Primary Care Provider [phone] Source Comments 4 the stars [employer],non-owned Affiliates and Associated Physician Practices is amultiple site organization consisting of ambulatory clinics and hospital sitesin [place], [place], [place] and [place]. This disclosure is being madepursuant to the Care Everywhere program and may not contain all information available regarding this patient. Last updated 18.[employer] Allergies No known active allergies Medications * [...] VACCINE ( - 2023-2 5 season) 2024 DEPRESSION SCREENING 07/20/2024 INFLUENZA VACCINE (Season Ended) 2025 HEPATITIS B VACCINE Aged Out No longe r eligible based on patient's age to complete this topic HIB VACCINE Aged Out No longer eligi ble based on patient's age to complete this topic HPV VACCINE Aged Out No longer eligi ble based on patient's age to complete this topic MENINGOCOCCAL (Group B) VACC INE SHARED DECISION-MAKING Aged Out No longer eligibl e based on patient's age to complete this topic MENINGOCOCCAL GROUPS A/C/Y/W VACCINE Aged Out No longer eligible b ased on patient's age to complete this topic Medical Devices Implanted Type Area Electric Lift Truck Driver Device Identifier Shelf Expiration Date Model / Serial / Lot Graft Tissue Xenform Ftl Bvn Drml Mtrx - Sgtin [id number] Implanted:Qty: 1 on 03/18/2017 by Dennis Ahmadi MD at [facility] Vagina [employer] 11/16/2018 [id number] / GTIN [id number] / [id number] Description:Implanted into a nterior vaginal wall. Sys Ureth Supp Obtryx Midurethral Trnstr - Sgtin [id number] Implanted:Qty: 1 on 03/18/2017 by Dennis Ahmadi MD at [facility] Vagina [employer] 07/31/2019 [id number] / GTIN [id number] / [id number] Advance Directives * Full Code (Latest Code Status on File) Date Activated Date Inactivated Comments 03/18/2017 5:44 PM 03/19/2017 4:02 PM Care Teams Skidder Relationship Specialty Start Date End Date Janak Villaseñor MD PCP - General Internal Medicine 03/18/17
--- OUTSIDE RECORDS SUMMARY | 2024-10-26 00:28 | XMS_ITS | Data Portability ---
Author Organization Amy. Rojas Mai n Office Address [address] [place] [phone] Assessment Encounter Date Assessment Date Assessment LastModified by Organization Details LastModified Time 02/13/2017 02/13/2017 Low risk for surgery, plans weight lifting to improve bone density and I have requested records [facility] labs for menopause with annual physical [email or web address] Not available 02/13/2017 13:37:11 Plan of Treatment Reminders Order Date Submit Date Provider Last Modified By Organization Details Last Modified Time Details Appointments None recorded. Lab CMP, serum or plasma 2018 019 [facility], [address] [facility], [place], [address], 9 11:33:50 TSH, serum or plasma 2018 019 [facility], [address] [place], [address], 9 11:33:52 CBC w/ auto diff 2018 019 [facility], [address] [facility], [place], [address], 9 11:33:51 vitamin D, 25-hydroxy, total, serum 2018 019 [facility], [address] [facility], [place], [address], 9 11:33:52 C-reactive protein, quantitativ e, serum or plasma 2018 019 [facility], [address], [place], [address], 9 11:33:49 lipid panel, blood 2018 019 [facility], [address], [place], [address], 9 11:33:50 HbA1c (hemoglobin A1c), blood 2018 019 [facility], [address], [place], [address], 9 11:33:53 fecal occult blood, immunoassay , stool 2018 [facility] Main Office, [address] [place] [address], [address], [address], 9 11:45:47 Referral None recorded. Procedures None recorded. Surgeries None recorded. Imaging electrocard iogram 2018 019 [email or web address] Main Office, [address] [place] [address], [address] [facility], [place], [address], 9 15:28:13 electrocard iogram 2017 018 [email or web address] Main Office, [address] [place] [address], [address] [facility], [place], [address], 8 21:45:12 Medication Orders None recorded. Patient TargetsNo targets recorded. Patient Instructions Encounter Date Encounter Id Patient Instructions Last Modified By Organization Details Last Modified Time 07/24/2016 [id number] We reviewed your current medical conditions and specialists consultations in detail, as well as your labs and testing. We reviewed risks associated with pain, nutrition, hydration, sleep, stress, activity and sexual health. Risks of alcohol, caffeine, and tobacco use reviewed. Preventive services were reviewed and offered available/appropri ate services. Reviewed personal, home and driving safety. [email or web address] Not available 07/24/2016 11:30:00 07/27/2017 [id number] fernández anxiety inventory* rkundra Not available 07/28/2017 00:08:02 epworth sleepine ss scale* rkundra Not available 07/28/2017 00:08:02 functional assessment screening* rkundra Not available 07/28/2017 00:08:02 spirometry testing* rkundra Not available 07/28/2017 00:08:02 visual acuity* rkundra Not available 0 07/28/2017 00:08:02 In compliance wi th Medicare guidelines, we will be billing Medicare to inform them of your adherence to completing your necessary preventive care. [email or web address] Not available 07/27/2017 11:38:33 09/15/2018 [id number] fernández anxiety inventory* rkundra Not available 09/17/2018 11:45:46 epworth sleepine ss scale* rkundra Not available 09/17/2018 11:45:47 mini mental stat e exam* rkundra Not available 09/17/2018 11:45:46 functional assessment screening* rkundra Not available 09/17/2018 11:45:46 spirometry testing* rkundra Not available 09/17/2018 11:45:47 In compliance wi th Medicare guidelines, we will be billing Medicare to inform them of your adherence to completing your necessary preventive care. Not available 09/15/2018 11:09:33 Reason for Referral None Reported. Results Created Date Observation Date Name Description Value Unit Range Abnormal Flag Note LastModifiedBy Organization Detail LastModifiedTime 09/15/19 19 09/15/2018 fecal occul t blood , immun oassa y, stool iFOB negati ve Not Available Main Office [address], [address], 09/15/2018 11:11:38 09/15/19 19 09/15/2018 young metry testi ng* Spirometry normal Not Available Main Of fice [address], [address], 09/15/2018 11:11:35 09/15/19 19 09/15/2018 gonzalo moregr am Rate & Rhythm Sinus Not Available Main O ffice [address], [address], 09/15/2018 11:11:33 09/15/19 19 09/15/2018 elect rocar diogr am QRS 87 Not Available Main Offic e [address] [address], [place], [address], 09/15/2018 11:11:33 09/15/19 19 09/15/2018 elect rocar diogr am VA Interval 145 Not Available Main O ffice [address] [facility] [address] [facility], [place], [address], 09/15/2018 11:11:33 09/15/19 19 09/15/2018 elect rocar diogr am QRS Duration 22 Not Available Main Office [address], [address], 09/15/2018 11:11:33 09/15/19 19 09/15/2018 elect rocar diogr am QT Interval 432 Not Available Main O ffice [address], [address], 09/15/2018 11:11:33 09/15/19 19 09/15/2018 funct ional asses sment scree jose* Gender Female Not Available Main Offic e [address] [address], [place], [address], 09/15/2018 11:11:03 09/15/1909/15/2018 funct ional asses sment scree jose* Results Discus sed Not Available Main Office [address], [address], 09/15/2018 11:11:03 09/15/1909/15/2018 mini menta l state exam* Total Score 30 Not Available Main O ffice [address] [address], [place], [address], 09/15/2018 11:11:03 09/15/1909/15/2018 mini menta l state exam* Indication Normal Not Available Main Of fice [address] [facility] [address], [place], [address], 09/15/2018 11:11:03 09/15/19 19 09/15/2018 epwor th sleep iness scale * Total Score 2 Not Available Main O ffice [address], [address], 09/15/2018 11:11:02 09/15/19 19 09/15/2018 epwor th sleep iness scale * Indication Normal Not Available Main Of fice [address], [address], 09/15/2018 11:11:02 09/15/19 19 09/15/2018 fernández anxie ty inven tory* Total Score 3 Not Available Main O ffice [address] [place] [address], [address], 09/15/2018 11:11:02 09/15/19 19 09/15/2018 fernández anxie ty inven tory* Indication Minima l anxiet y Not Available Main Office [address] [place] [address], [address], 09/15/2018 11:11:02 07/27/19 18 07/27/2017 visua l acuit y* Unknown Analyte Patien t satisf ied w/ anothe r provid er Not Available Main Office [address] [place] [address], [address], 07/27/2017 12:08:18 07/27/19 18 07/27/2017 elect rocar diogr am Rate & Rhythm sinus Not Available Main O ffice [address] [place] [address], [address], 07/27/2017 12:08:13 07/27/19 18 07/27/2017 elect rocar diogr am QRS 91 Not Available Main Offic e [address] [place] [address], [address], 07/27/2017 12:08:13 07/27/19 18 07/27/2017 elect rocar diogr am VA Interval 147 Not Available Main O ffice [address] [facility] [address], [place], [address], 07/27/2017 12:08:13 07/27/19 18 07/27/2017 elect monty diogr am QRS Duration 21 Not Available Main Office [address] [facility] [address], [place], [address], 07/27/2017 12:08:13 07/27/19 18 07/27/2017 elect monty diogr am QT Interval 458 Not Available Main O ffice [address] [facility] [address], [place], [address], 07/27/2017 12:08:13 07/27/19 18 07/27/2017 young metry testi ng* Spirometry normal Not Available Main Of fice [address] [facility] [address], [place], [address], 07/27/2017 12:08:12 07/27/19 18 07/28/2017 lipid panel , serum cholesterol 224 mg/dL 75-200 high Not Available [facility] ([facility]) [address] [place] [address] [address], [place], [address], 07/28/2017 13:15:16 07/27/19 18 07/28/2017 lipid panel , serum triglyceride s 69 mg/dL <150 Not Available [facility] ([facility]) [address] [place] [address] [address], [place], [address], 07/28/2017 13:15:16 07/27/19 18 07/28/2017 lipid panel , serum HDL cholesterol 93 mg/dL >39 Not Available [facility] ([facility]) [address] [place] [address] [address], [place], [address], 07/28/2017 13:15:16 07/27/19 18 07/28/2017 lipid panel , serum cholesterol / HDL ratio 2.41 ratio 0.00-4 .44 Not Available [facility]) [address] [facility] [address] [address], [place], [address], 07/28/2017 13:15:16 07/27/19 18 07/28/2017 lipid panel , serum non-HDL cholesterol 131 mg/dL <130 high Not Available [facility] ([facility]) [address] [facility] [address], [place], [address], 07/28/2017 13:15:16 07/27/19 18 07/28/2017 lipid panel , serum LDL cholesterol (calculation ) 117 mg/dL <130 LDL Komal stero l Level s Less than 100 mg/dL Optim al 100 to 129 mg/dL Near Optim al/ Above Optim al 130 to 159 mg/dL Borde rline High 160 to 189 mg/dL High 190 mg/dL and above Very High * Categ estephania hodge by the 2004 ATPII I guide lines Not Available [facility]) [address] [facility] [address], [place], [address], 07/28/2017 13:15:16 07/27/19 18 07/28/2017 lipid panel , serum LDL/HDL ratio 1.3 ratio <3.3 ___ LDL Komal stero l Patie nt Histo ry ___ Test Date: 07/23 LDL Resul ts: 77 Units : mg/dL % Morse e: -34% ----- ----- ----- ----- ----- ----- ----- ----- ----- ----- ----- ----- ----- ----- --- Test Date: 07/24 LDL Resul ts: 102 Units : mg/dL % Morse e: +32% ----- ----- ----- ----- ----- ----- ----- ----- ----- ----- ----- ----- ----- ----- --- Test Date: 07/27 LDL Resul ts: 117 Units : mg/dL % Morse e: +14% ___ Note: Ameri can [employer] Ass[employer] iatio n recom mends using total komal stero l and HDL numbe rs rathe r than ratio s for patie nt class ifica tion. New guide lines from AHA/A CC recom mend again st using speci fic LDL targe ts for patie nt manag ement . Rathe r a perce ntage decre ase is the flora ed patie nt manag ement algor rojelio car en 30% and 50% reduc tion. If you would like to have your patie nts Cardi ovasc ular Risk Asses sment class ifica tion (per 2013 AHA/A CC guide lines ) 10-lilibeth ar ASCVD score , ruperto araiza order the ASCVD Advan michael Lipid Sonam burnham (LIPC VD). Not Available [facility] ([facility]) [address] [facility] [address] [address], [place], [address], 07/28/2017 13:15:16 07/27/19 18 07/28/2017 CBC w/ auto diff WBC 6.3 K/uL 3.8-11 .5 E ffect elisa 06/29 New WBC Count Refer ence Range for Adult Males and Femal es: 3.8-1 1.5 K/uL Previ ous WBC Count Refer ence Range for Adult Males and Femal es: 3.8-1 2.8 K/uL Not Available [facility] ([facility]) [facility] [facility] [address] [address], [place], [address], 07/28/2017 13:15:17 07/27/19 18 07/28/2017 CBC w/ auto diff red blood cell count (RBC) 4.24 M/mm3 3.60-5 .30 E ffect elisa 2016 New Red Blood Count Refer ence Range for Adult Femal es: 3.6-5 .3 M/mm3 Previ ous Red Blood Count Refer ence Range for Adult Femal es: 3.7-5 .1 M/mm3 Not Available [facility] ([facility]) [address] [place] [address] [address], [place], [address], 07/28/2017 13:15:17 07/27/19 18 07/28/2017 CBC w/ auto diff hemoglobin (HGB) 13.3 gm/dL 12.0-1 6.0 Not Available [facility] ([facility]) [address] [place] [address] [address], [place], [address], 07/28/2017 13:15:17 07/27/19 18 07/28/2017 CBC w/ auto diff hematocrit (HCT) 40.7 % 37.4-4 8.3 Not Available [facility] ([facility]) [address] [place] [address] [address], [place], [address], 07/28/2017 13:15:17 07/27/19 18 07/28/2017 CBC w/ auto diff MCV 96.0 fL 81.0-1 02.0 Not Available [facility] ([facility]) [address] [place] [address] [address], [place], [address], 07/28/2017 13:15:17 07/27/19 18 07/28/2017 CBC w/ auto diff MCH 31.4 pg 26.9-3 5.0 Not Available [facility]) [address] [place] [address] [address], [place], [address], 07/28/2017 13:15:17 07/27/19 18 07/28/2017 CBC w/ auto diff MCHC 32.7 g/dL 30.4-3 4.8 Not Available [facility] ([facility]) [address] [place] [address] [address], [place], [address], 07/28/2017 13:15:17 07/27/19 18 07/28/2017 CBC w/ auto diff RDW 45.8 fL 38.6-5 3.8 Not Available [facility]) [address] [place] [address] [address], [place], [address], 07/28/2017 13:15:17 07/27/19 18 07/28/2017 CBC w/ auto diff platelet count 342 K/cum m 137-39 7 Not Available [facility]) [address] [place] [address] [address], [place], [address], 07/28/2017 13:15:17 07/27/19 18 07/28/2017 CBC w/ auto diff neutrophils automated 65.7 % 41.0-7 7.0 Not Available [facility]) [address] [place] [address] [address], [place], [address], 07/28/2017 13:15:17 07/27/19 18 07/28/2017 CBC w/ auto diff lymphocytes automated 18.6 % 14.0-4 8.0 Not Available [facility]) [address] [place] [address] [address], [place], [address], 07/28/2017 13:15:17 07/27/19 18 07/28/2017 CBC w/ auto diff monocytes automated 10.4 % 4.0-13 .0 Not Available [facility] ([facility]) [address] [place] [address] [address], [place], [address], 07/28/2017 13:15:17 07/27/19 18 07/28/2017 CBC w/ auto diff eosinophils automated 3.9 % 1.0-8. 0 Not Available [facility] ([facility]) [address] [place] [address] [address], [place], [address], 07/28/2017 13:15:17 07/27/19 18 07/28/2017 CBC w/ auto diff basophils automated 1.1 % 0.0-1. 5 Not Available [facility] ([facility]) [address] [place] [address] [address], [place], [address], 07/28/2017 13:15:17 07/27/19 18 07/28/2017 CBC w/ auto diff immature granulocyte automated 0.3 % 0.0-1. 0 Not Available [facility] ([facility]) [address] [place] [address] [address], [place], [address], 07/28/2017 13:15:17 07/27/19 18 07/28/2017 CMP, serum or plasm a sodium 133 mEq/L 134-14 5 low Not Available [facility] ([facility]) [address] [place] [address] [address], [place], [address], 07/28/2017 13:15:18 07/27/19 18 07/28/2017 CMP, serum or plasm a potassium 3.9 mEq/L 3.4-5. 4 Not Available [facility] ([facility]) [address] [place] [address] [address], [place], [address], 07/28/2017 13:15:18 07/27/19 18 07/28/2017 CMP, serum or plasm a chloride 94 mEq/L 97-109 low Not Available [facility]) [address] [place] [address] [address], [place], [address], 07/28/2017 13:15:18 07/27/19 18 07/28/2017 CMP, serum or plasm a CO2 26 mEq/L 22-32 Not Available [facility]) [address] [place] [address] [address], [place], [address], 07/28/2017 13:15:18 07/27/19 18 07/28/2017 CMP, serum or plasm a glucose 91 mg/dL 65-99 Ef fecti ve 2016* New GLU Refer ence Range : 65-99 mg/dL Previ ous GLU Refer ence Range : 65-10 5 mg/dL Not Available [facility]) [address] [place] [address] [address], [place], [address], 07/28/2017 13:15:18 07/27/19 18 07/28/2017 CMP, serum or plasm a BUN 12 mg/dL 5-26 Not Available [facility]) [address] [place] [address] [address], [place], [address], 07/28/2017 13:15:18 07/27/19 18 07/28/2017 CMP, serum or plasm a creatinine 0.5 mg/dL 0.5-1. 5 Not Available [facility] ([facility]) [address] [place] [address] [address], [place], [address], 07/28/2017 13:15:18 07/27/19 18 07/28/2017 CMP, serum or plasm a calcium 9.4 mg/dL 8.5-10 .3 Not Available [facility]) [address] [place] [address] [address], [place], [address], 07/28/2017 13:15:18 07/27/19 18 07/28/2017 CMP, serum or plasm a protein 6.5 g/dL 6.1-8. 3 Not Available [facility] ([facility]) [address] [place] [address] [address], [place], [address], 07/28/2017 13:15:18 07/27/19 18 07/28/2017 CMP, serum or plasm a albumin 4.3 g/dL 3.7-5. 2 Not Available [facility]) [address] [place] [address] [address], [place], [address], 07/28/2017 13:15:18 07/27/19 18 07/28/2017 CMP, serum or plasm a alkaline phosphatase 59 IU/L 38-126 Not Available [facility] ([facility]) [address] [place] [address] [address], [place], [address], 07/28/2017 13:15:18 07/27/19 18 07/28/2017 CMP, serum or plasm a ALT (SGPT) 12 IU/L 7-52 Not Available [facility]) [address] [place] [address] [address], [place], [address], 07/28/2017 13:15:18 07/27/19 18 07/28/2017 CMP, serum or plasm a AST (SGOT) 18 IU/L 13-39 Not Available [facility] ([facility]) [address] [place] [address] [address], [place], [address], 07/28/2017 13:15:18 07/27/19 18 07/28/2017 CMP, serum or plasm a bilirubin, total 0.5 mg/dL 0.2-1. 5 Not Available [facility]) [address] [place] [address] [address], [place], [address], 07/28/2017 13:15:18 07/27/19 18 07/28/2017 CMP, serum or plasm a A/G ratio 2.0 mg/dL 1.1-2. 5 Not Available [facility] ([facility]) [address] [place] [address] [address], [place], [address], 07/28/2017 13:15:18 07/27/19 18 07/28/2017 GFR, estim ated (eGFR ), serum GFR/black >60 mL/mi n/1.7 3m2 >60 Not Available [facility] ([facility]) [address] [place] [address] [address], [place], [address], 07/28/2017 13:15:18 07/27/19 18 07/28/2017 GFR, estim ated (eGFR ), serum GFR/white >60 mL/mi n/1.7 3m2 >60 Chron ic Kidne y Disea se: Less than 60 ml/mi n/1.7 3 squar e meter s End Stage Renal Disea se: Less than 15 ml/mi n/1.7 3 squar e meter s Not Available [facility] ([facility]) [address] [place] [address] [address], [place], [address], 07/28/2017 13:15:18 07/27/19 18 07/28/2017 HbA1c (hemo globi n A1c), blood hemoglobin A1C 5.9 % <5.7 high The follo wing HbA1c range s recom prince d by the [place] Diabe noe Assoc iatio n (ADA) may be used as an aid in the diagn osis of diabe noe melli tus. HA1c Sugge sted Diagn osis >=6.5 % Diabe tic 5.7% - 6.4% Pre-D iabet ic <5.7% Non-D iabet ic Not Available [facility]) [address] [place] [address] [address], [place], [address], 07/28/2017 13:15:19 07/27/19 18 07/28/2017 estim ated avera ge gluco se estimated average glucose 123 mg/dL [place] ge Gluco se is calcu lated using the equat ion AG = (28.7 x HgbA1 c) - 46.7 based on the guide lines estab lisjewels hodge by the ADA. Not Available [facility] ([facility]) [address] [place] [address] [address], [place], [address], 07/28/2017 13:15:19 07/27/19 18 07/28/2017 C-saul ctive prote in, quant itati ve, serum or plasm a C-reactive protein (CRP) <0.5 mg/dL 0.5-0. 9 low Not Available [facility] ([facility]) [address] [place] [address] [address], [place], [address], 07/28/2017 13:15:20 07/27/19 18 07/28/2017 TSH, serum or plasm a TSH 1.45 mU/L 0.34-5 .00 Not Available [facility] ([employer] [facility] [employer] [facility]) [address] [place] [address] [address], [place], [address], 07/28/2017 13:15:20 07/27/19 18 07/28/2017 vitam in D, 25-hy droxy , total , serum vitamin D 25-hydroxy 63.2 NG/mL 30.0-1 00.0 Inter preta tion of Vitam in D 25 OH: < 20 ng/mL - Defic iency 20 - 29 ng/mL - Insuf ficie ncy 30 - 100 ng/mL - Suffi cienc y > 100 ng/mL - Super -ther apeut ic- toxic ity may occur above this level . Clini dylan corre latio n requi red. Not Available [facility] ([facility]) [address], [place], [address], 07/28/2017 13:15:21 07/27/19 18 07/27/2017 funct ional asses sment scree jose* Gender Woman Not Available Main Offic e [address] [place] [address], [place], [address], 07/27/2017 11:38:36 07/27/19 18 07/27/2017 funct ional asses sment scree jose* Status if Not Performed Patien t refuse d Not Available Main Office [address] [place] [address], [address], 07/27/2017 11:38:36 07/27/19 18 07/27/2017 epwor th sleep iness scale * Total Score 3 Not Available Main O ffice [address] [place] [address], [place], [address], 07/27/2017 11:38:35 07/27/19 18 07/27/2017 epwor th sleep iness scale * Indication Normal Not Available Main Of fice [address] [place] [address], [place], [address], 07/27/2017 11:38:35 07/27/19 18 07/27/2017 efrnández anxie ty inven tory* Total Score 0 Not Available Main O ffice [address] [place] [address], [place], [address], 07/27/2017 11:38:35 07/27/19 18 07/27/2017 fernández anxie ty inven tory* Indication Normal Not Available Main Of [address], [address], 07/27/2017 11:38:35 09/15/19 19 09/15/2018 C-saul ctive prote in, quant itati ve, serum or plasm a C-reactive protein 1.63 mg/L 0.00-1 0.00 normal Not Available [facility] (Lab) [address] [place], [address], 09/16/2018 11:33:49 09/15/19 19 09/15/2018 lipid panel , blood total cholesterol 257 mg/dL 0-199 high Not Available [facility] (Lab) [address] [place], [address], 09/16/2018 11:33:50 09/15/19 19 09/15/2018 lipid panel , blood triglyceride s 64 mg/dL 0-149 normal Not Available [facility] (Lab) [address], [place], [address], 09/16/2018 11:33:50 09/15/19 19 09/15/2018 lipid panel , blood HDL cholesterol 104 mg/dL 50-240 normal Not Available [facility] (Lab) [address], [place], [address], 09/16/2018 11:33:50 09/15/19 19 09/15/2018 lipid panel , blood LDL cholesterol 140 mg/dL 0-99 high Not Available [facility] (Lab) [address], [place], [address], 09/16/2018 11:33:50 09/15/19 19 09/15/2018 lipid panel , blood chol/HDL ratio 2.5 Not Available [facility] (Lab) [address] [place], [address], 09/16/2018 11:33:50 09/15/19 19 09/15/2018 lipid panel , blood non-HDL cholesterol 153 mg/dL 0-129 high For Ages >=20 years (mg/d L) ..... ..... ..... ..Kb al... .Elev ated. ...Erich rderl ine.. ....H igh.. ...Ve ry High Chol* ..... ...<2 00... ..... ..... ..... ..... ..... ..... ..... .200- 239.. ..>=2 40 Trig. ..... ..... <1 50... ..... ..... ..... ...15 0-199 ..... .200- 499.. ..>=5 00 LDL-C ..... ..<10 0...1 00-12 9.... .130- 159.. ....1 60-18 9.... >=190 NonHD L-C.< 130.. .130- 159.. ...16 0-189 ..... .190- 219.. ..>=2 20 Tomy lau TA, et al. Natio nal Lipid Assoc iatio n recom menda tions for patie nt-ce ntere d manag ement of dysli pidem ia: part 1-ful l repor t. J Clin Lipid ol 2015; 129-1 69. *Thir d repor t of the Natio nal Komal stero l Educa tion Progr am (NCEP ) Exper t Panel on Detec tion, Educa tion, and Treat ment of High Blood Komal stero l in Adult s (Adul t Treat ment panel III): final repor t. Elida penn 2001; 106:3 143. Not Available [facility] (Lab) [address], [place], [address], 09/16/2018 11:33:50 09/15/19 19 09/15/2018 CMP, serum or plasm a glucose 103 mg/dL 70-99 high Not Available [facility] (Lab) [address] [place], [address], 09/16/2018 11:33:50 09/15/19 19 09/15/2018 CMP, serum or plasm a urea nitrogen 11 mg/dL 8-23 normal Not Available [facility] (Lab) [address] [place], [address], 09/16/2018 11:33:50 09/15/19 19 09/15/2018 CMP, serum or plasm a creatinine 0.6 mg/dL 0.5-1. 2 normal Not Available [facility] (Lab) [address] [place], [address], 09/16/2018 11:33:50 09/15/19 19 09/15/2018 CMP, serum or plasm a GFR() 126 mL/mi n/1.7 3_m2 60-300 normal Not Available [facility] (Lab) [address] [place], [address], 09/16/2018 11:33:50 09/15/19 19 09/15/2018 CMP, serum or plasm a GFR(others) 104 mL/mi n/1.7 3_m2 60-300 normal Not Available [facility] (Lab) [address] [place], [address], 09/16/2018 11:33:50 09/15/19 19 09/15/2018 CMP, serum or plasm a sodium 133 mEq/L 136-14 5 low Not Available [facility] (Lab) [address] [place], [address], 09/16/2018 11:33:50 09/15/19 19 09/15/2018 CMP, serum or plasm a potassium 4.6 mEq/L 3.5-5. 3 normal Not Available [facility] (Lab) [address] [place], [address], 09/16/2018 11:33:50 09/15/19 19 09/15/2018 CMP, serum or plasm a chloride 92 mEq/L 98-107 low Not Available [facility] (Lab) [address] [place], [address], 09/16/2018 11:33:50 09/15/19 19 09/15/2018 CMP, serum or plasm a CO2 26 mEq/L 23-31 normal Not Available [facility] (Lab) [address] [place], [address], 09/16/2018 11:33:50 09/15/19 19 09/15/2018 CMP, serum or plasm a anion gap 15 mmole s/L 8-16 normal Not Available [facility] (Lab) [address] [place], [address], 09/16/2018 11:33:50 09/15/19 19 09/15/2018 CMP, serum or plasm a calcium 9.6 mg/dL 8.8-10 .5 normal Not Available [facility] (Lab) [address], [place], [address], 09/16/2018 11:33:50 09/15/19 19 09/15/2018 CMP, serum or plasm a total protein 7.1 gm/dL 6.0-8. 3 normal Not Available [facility] (Lab) [address] [place], [address], 09/16/2018 11:33:50 09/15/19 19 09/15/2018 CMP, serum or plasm a albumin 4.5 gm/dL 3.5-5. 0 normal Not Available [facility] (Lab) [address] [place], [address], 09/16/2018 11:33:50 09/15/19 19 09/15/2018 CMP, serum or plasm a AST (SGOT) 19 IU/L 11-32 normal Not Available [facility] (Lab) [address] [place], [address], 09/16/2018 11:33:50 09/15/19 19 09/15/2018 CMP, serum or plasm a ALT (SGPT) 15 IU/L 9-43 normal Not Available [facility] (Lab) [address] [place], [address], 09/16/2018 11:33:50 09/15/19 19 09/15/2018 CMP, serum or plasm a alkaline phos 69 IU/L 35-129 normal Not Available [facility] (Lab) [address], [place], [address], 09/16/2018 11:33:50 09/15/19 19 09/15/2018 CMP, serum or plasm a total bilirubin 0.5 mg/dL 0.0-1. 0 normal Not Available [facility] (Lab) [address], [place], [address], 09/16/2018 11:33:50 09/15/19 19 09/15/2018 CBC w/ auto diff white blood cells 7.0 k/cu_ mm 3.6-10 .2 normal Not Available [facility] (Lab) [address], [place], [address], 09/16/2018 11:33:51 09/15/19 19 09/15/2018 CBC w/ auto diff red blood cells 4.3 m/cu_ mm 4.1-5. 3 normal Not Available [facility] (Lab) [address], [place], [address], 09/16/2018 11:33:51 09/15/19 19 09/15/2018 CBC w/ auto diff hemoglobin 13.7 gm/dL 11.9-1 5.8 normal Not Available [facility] (Lab) [address], [place], [address], 09/16/2018 11:33:51 09/15/19 19 09/15/2018 CBC w/ auto diff hematocrit 41.5 perce nt 37.4-4 8.3 normal Not Available [facility] (Lab) [address], [place], [address], 09/16/2018 11:33:51 09/15/19 19 09/15/2018 CBC w/ auto diff MCV 97 fL 82-99 normal Not Available [facility] (Lab) [address], [place], [address], 09/16/2018 11:33:51 09/15/19 19 09/15/2018 CBC w/ auto diff MCH 32 pg 27-33 normal Not Available [facility] (Lab) [address], [place], [address], 09/16/2018 11:33:51 09/15/19 19 09/15/2018 CBC w/ auto diff MCHC 33 perce nt 32-36 normal Not Available [facility] (Lab) [address], [place], [address], 09/16/2018 11:33:51 09/15/19 19 09/15/2018 CBC w/ auto diff platelets 347 k/cu_ mm 150-45 0 normal Not Available [facility] (Lab) [address], [place], [address], 09/16/2018 11:33:51 09/15/19 19 09/15/2018 CBC w/ auto diff MPV 10.8 fL 9.8-12 .7 normal Not Available [facility] (Lab) [address] [place], [address], 09/16/2018 11:33:51 09/15/19 19 09/15/2018 CBC w/ auto diff RDW-CV 13 perce nt 11-15 normal Not Available [facility] (Lab) [address] [place], [address], 09/16/2018 11:33:51 09/15/19 19 09/15/2018 CBC w/ auto diff neutrophils 65 perce nt 37-72 normal Not Available [facility] (Lab) [address] [place], [address], 09/16/2018 11:33:51 09/15/19 19 09/15/2018 CBC w/ auto diff lymphocytes 22 perce nt 16-48 normal Not Available [facility] (Lab) [address] [place], [address], 09/16/2018 11:33:51 09/15/19 19 09/15/2018 CBC w/ auto diff monocytes 8 perce nt 4-14 normal Not Available [facility] (Lab) [address] [place], [address], 09/16/2018 11:33:51 09/15/19 19 09/15/2018 CBC w/ auto diff eosinophils 4 perce nt 0-9 normal Not Available [facility] (Lab) [address], [place], [address], 09/16/2018 11:33:51 09/15/19 19 09/15/2018 CBC w/ auto diff basophils 1 perce nt 0-2 normal Not Available [facility] (Lab) [address], [place], [address], 09/16/2018 11:33:51 09/15/19 19 09/15/2018 CBC w/ auto diff nucleated RBC 0.00 /100_ WBC 0.00-0 .00 normal Not Available [facility] (Lab) [address] [place], [address], 09/16/2018 11:33:51 09/15/19 19 09/15/2018 CBC w/ auto diff neutrophil count 4.5 k/cu_ mm 1.1-6. 0 normal Not Available [facility] (Lab) [address] [place], [address], 09/16/2018 11:33:51 09/15/19 19 09/15/2018 CBC w/ auto diff lymphocyte count 1.6 k/cu_ mm 0.7-3. 4 normal Not Available [facility] (Lab) [address] [place], [address], 09/16/2018 11:33:51 09/15/19 19 09/15/2018 CBC w/ auto diff monocyte count 0.5 k/cu_ mm 0.3-1. 0 normal Not Available [facility] (Lab) [address] [place], [address], 09/16/2018 11:33:51 09/15/19 19 09/15/2018 CBC w/ auto diff eosinophil count 0.3 k/cu_ mm 0.0-0. 6 normal Not Available [facility] (Lab) [address] [place], [address], 09/16/2018 11:33:51 09/15/19 19 09/15/2018 CBC w/ auto diff basophil count 0.1 k/cu_ mm 0.0-0. 1 normal Not Available [facility] (Lab) [address], [place], [address], 09/16/2018 11:33:51 09/15/19 19 09/15/2018 CBC w/ auto diff nucleated RBC count 0.0 x10'3 /uL 0.0-0. 0 normal Not Available [facility] (Lab) [address] [place], [address], 09/16/2018 11:33:51 09/15/19 19 09/15/2018 CBC w/ auto diff automated percent immature granulocytes 0 % Not Available [facility] (Lab) [address] [place], [address], 09/16/2018 11:33:51 09/15/19 19 09/15/2018 CBC w/ auto diff automated absolute immature granulocytes 0.0 x10'3 /uL Not Available [facility] (Lab) [address] [place], [address], 09/16/2018 11:33:51 09/15/19 19 09/15/2018 TSH, serum or plasm a TSH 0.98 mciu/ mL 0.30-5 .00 normal Not Available [facility] (Lab) [address], [place], [address], 09/16/2018 11:33:51 09/15/19 19 09/15/2018 vitam in D, 25-hy droxy , total , serum vitamin D, 25-hydroxy 84.7 NG/mL 30.0-8 0.0 high This assay was perfo rmed using [employer] ratio n reage nts and test kits. Value s obtai fan with other assay metho ds or kits canno t be used inter morse eably . NOTE: Defic iency : <20 ng/mL Insuf ficie ncy: 20-29 ng/mL Optim um Level : 30-80 ng/mL Possi ble Toxic ity: >80 ng/mL Most patie nts with toxic ity have level s >150 ng/mL Not Available [facility] (Lab) [address], [place], [address], 09/16/2018 11:33:52 09/15/19 19 09/15/2018 HbA1c (hemo globi n A1c), blood hemoglobin A1C 5.8 perce nt 0.0-5. 6 high <5.7% Henny l 5.7 - 6.4% Incre ased risk for diabe noe >=6.5 % Diagn ostic of diabe noe <7.0% Goal of thera py >8.0% Actio n sugge sted Not Available [facility] (Lab) [address], [place], [address], 09/16/2018 11:33:52 03/02/20 17 elect rocar diogr am No observ ation record ed. [email or web address] Not Available 2017 12:23:22 07/27/19 18 elect rocar diogr am No observ ation record ed. [email or web address] Not Available 2017 23:53:31 07/27/19 18 young metry testi ng* No observ ation record ed. [email or web address] Not Available 2017 23:53:29 07/27/19 18 07/27/2017 imagi ng/di agnos tic resul t No observ ation record ed. [email or web address] [facility] [address] [place], [address], 07/27/2017 23:53:49 07/28/19 18 07/27/2017 XR, hip + pelvi s, bilat eral No observ ation record ed. [email or web address] [facility] [address] [place], [address], 09/17/2018 11:17:18 10/20/19 19 10/19/2018 XR, chest , 2 view No observ ation record ed. [facility] [address], [place], [address], 10/19/2018 12:54:09 Result Notes None recorded. Problems Name Problem SNOMED Code Status Onset Date Resolution Date Notes Provider Name and Address Organization Details Recorded Time Disorder of lipid metaboli sm 904181171 Active 2014 Not Available [facility] 6 08:41:22 Closed fracture of carpal bone 5166293 Completed 201507/27/2015 Not Available [facility] 6 08:41:49 Hearing problem 119656173 Active 2014 Not Available [facility] 6 08:41:53 Disorder of calcium metaboli sm 83636673 Completed 201407/27/2017 Removal Reason: resolved ADIS Rudd Amy. 8 00:10:08 Benign essentia l hyperten juan antonio 1006442 Active 2013 Not Available [facility] 6 08:42:10 Fall on same level from slipping , tripping or stumblin g Completed 201407/27/2017 ADIS Rudd Amy. 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 8 00:09:43 Syncope 805210609 Completed 201307/27/2017 Removal Reason: resolved ADIS Rudd Amy. 8 00:09:24 Varicose veins of lower extremit y 44249859 Active 2014 Not Available [facility] 6 08:43:40 Vitamin D deficien 60831848 Active 2014 Not Available [facility] 6 08:43:43 Problem Notes None recorded. Procedures Surgical History Date Name Laterality Status Provider Name and Address Organization Details Recorded Time 9 [facility] completed Amy. Samina 019 11:09:34 8 [facility] completed Amy. Samina 018 11:38:33 7 [facility] completed Amy. Samina 017 11:30:00 4 Diagnostic colonoscopy completed Amy. Megan 07/28/2017 00:17:26 Imaging Results Imaging Date Name Status LastModified by Organization Details LastModified Time 03/02/2017 electrocardiogram completed [email or web address] Informa tion not available 07/28/2017 12:23:22 07/27/2017 electrocardiogram completed Informa tion not available 07/27/2017 23:53:31 07/27/2017 spirometry testing* completed Infor mation not available 07/27/2017 23:53:29 07/27/2017 imaging/diagnostic result completed [email or web address] [facility] [address], [place], [address], 07/27/2017 23:53:49 07/27/2017 XR, hip + pelvis, bilateral completed rkundra [facility] [address], [place], [address], 09/17/2018 11:17:18 10/19/2018 XR, chest, 2 view completed [email or web address] [facility] [address], [place], [address], 10/19/2018 12:54:09 Procedure Notes None recorded. Medical Equipment None Reported. Allergies No known drug allergies Medications Name Sig Start Date Stop Date Status Note LastModified by Organization Details LastModified Time prednison e 10 mg tablet 1 daily 07/24 completed Not Available Not Available Not Available alendrona te 70 mg tablet 09/15 completed Plan to disconti nue due to jaw issue Not Available Not Available Not Available prednison e 5 mg tablet 07/27 completed Not Available Not Available Not Available losartan 100 mg-hydroc hlorothia zide 25 mg tablet Take 1 tablet every day by oral route. 09/17 completed Not Available Not Available Not Available prednison e 1 mg tablet 07/24 completed Not Available Not Available Not Available losartan 25 mg tablet Take 1 tablet(s ) by mouth daily 12/10 completed Not Available Not Available Not Available aspirin 81 mg chewable tablet 2014 active Not Available Not Available Not Avai lable losartan 100 mg tablet TAKE 1 TABLET BY MOUTH EVERY DAY active Not Available Not Available No t Available Once Daily Multivita min 2014 active Not Available Not Available Not Avai lable Calcium 600 + Minerals 600 mg-10 mcg (400 unit) tablet 2014 active Not Available Not Available Not Avai lable Forteo 20 mcg/dose (560 mcg/2.24 mL) subcutane ous pen injector Inject 20 mcg subcutan eously daily in the thigh or abdomina l wall 07/23 completed Not Available Not Available Not Available Vitamin D2 Take 1 tablet(s ) by mouth daily 07/27 completed Not Available Not Available Not Available Vitals Date Recorded Body height Body weight Body mass index (BMI) Provider Name and Address Organization Details Last Updated DateTime 07/24/2016 157.48 cm 27015.53 g 20.9 kg/m2 Amy. Vance 07/24/2016 12:30:30 Date Recorded Body height Body mass index (BMI) Body weight Body temperature Systolic blood pressure Diastolic blood pressure Provider Name and Address Organization Details Last Updated DateTime 7 157.48 cm 21.2 kg/m2 37327.7 1 g 116 [degF] 150 mm[Hg] 90 mm[Hg] Amy. Samina 7 12:54:02 Date Recorded Body height Heart rate Oxygen saturation Oxygen saturation in Arterial blood by Pulse oximetry Respiratory rate Body temperature Provider Name and Address Organization Details Last Updated DateTime 8 157.48 cm 72 /min 99 % 99 % 16 /min 98.2 [degF] Amy. Samina 8 12:13:44 Date Recorded Body mass index (BMI) Body weight Systolic blood pressure Diastolic blood pressure Provider Name and Address Organization Details Last Updated DateTime 07/27/2017 23.6 kg/m2 24558.42 g 112 mm[Hg] 68 mm[Hg] Amy. Megan 07/28/2017 00:15:44 Date Recorded Body height Body mass index (BMI) Body weight Heart rate Oxygen saturation Oxygen saturation in Arterial blood by Pulse oximetry Systolic blood pressure Diastolic blood pressure Provider Name and Address Organization Details Last Updated DateTime 9 154.94 cm 22.3 kg/m2 53127.9 g 68 /min 92 % 92 % 132 mm[Hg] 78 mm[Hg] Amy. Samina 9 12:12:41 Social History Question Answer Notes LastModified by Organizat ion Details LastModified Time Tobacco Smoking Status Never Smoker ADIS Rudd Amy. 07/28/2017 00:08:30 What Is Your Level Of Alcohol Consumption? Moderate 2 To 3 Glasses Of Wine Information not available 09/17/2018 What Was The Date Of Your Most Recent Tobacco Screening? 09/15/2018 Information not available 02/11/2019 How Many Years Have You Smoked Tobacco? 0 Information not available 09/17/2018 Sex: Unknown Functional Status None recorded. Mental Status None recorded. Family History Relationship Description Onset Age of this Age Resolved Age Notes LastModified by Organization Details LastModified Time Father Congestive heart failure 65 [email or web address] Not available 2018 11:23:40 Mother Malignant tumor of lung 63 second hand smoke exposu re rkundra Not available 09/17/2018 11:24:27 Sister Hypertensive disorder rkundra Not available 2018 11:25:04 Notes:2 nephews with coronar y artery disease Medical History No medical history recorded. Gynecological HistoryNo gynecological history recorded. Obstetrics History GPAL:G 0 P 0 0 0 0 Immunizations Vaccine Type Date Status Note Provider Nam e and Address Organization Details Recorded Time Influenza, split virus, trivalent, preservative 4 completed Not Available [facility] 08/20/2019 02:20:52 zoster live 1 completed Not Available [facility] 11/14/2016 02:36:12 pneumococcal polysaccharide PPV23 1 completed ADIS Rudd Amy. 07/28/2017 00:14:25 Pneumococcal conjugate PCV 13 6 completed Not Available [facility] 08/20/2019 02:20:52 influenza, unspecified formulation 6 completed ADIS Booth Amy. 07/24/2016 13:34:51 Tdap 7 completed ADIS Rudd Amy. 07/27/2017 23:56:37 Influenza, split virus, quadrivalent, preservative 7 completed ADIS Rudd Amy. 07/28/2017 00:13:05 Past Encounters Encounter ID Performer Location Encounter Start Date Encounter Closed Date Diagnosis/Indication Diagnosis SNOMED-CT Code Diagnosis ICD10 Code Diagnosis Note [id number] Main Office [address] [place] [address] [id number] 03/13/2014 00:00:00 [id number] Office [address] [place] [address] [id number] 07/19/2014 00:00:00 [id number] Kristofer Fernandez Main Office [address] [place] [address] [id number] 5 07/24/2016 11:29:17 07/24/2016 19:54:39 [id number] Janak Villaseñor Main Office [address] [place] [address] [id number] 5 02/13/2017 12:51:05 02/13/2017 13:37:59 Postmenopausal osteoporosis 708100338 M81.[address] Basilio, belén check for pth and prior treatments Benign ess ential hypertension 8728110 I10 well controlled with losartan Pre-surger y evaluation 187255502 Z01.818 no evidence of cardiac insufficie ncy or cad. Low risk for surgery [id number] Janak Romero Main Office [address] [place] [address] [id number] 5 07/27/2017 11:35:10 08/05/2017 21:45:12 Adult health examination 457940483 Z00.00 She is having right hip pain intermitte ntly. An x-ray of the hip was normal and we discussed changing her work chair, sitting position, possibly using an adjustable height desk and clam shell exercise to improve the presumed piriformis muscle pain. She was asked to update me on the issue after her trip. I gave her a copy of the Neptune Diet book, although her diet is extremely healthy and she is exercising vigorously --- she may use some of the recipe's to help Humberto lose weight. 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 My opinion is alendronat e should be stopped. She is meeting with her bone specialist this week. Hopefully, the weight bearing exercise and perhaps a further reduction in alcohol consumptio n will help improve her osteoporos is. Vitamin D may also be supplement ed depending on her lab results. She needed prednisone in the past so this likely contribute d to the osteoporos is She is have some vaginal pain so she will consult with her surgeon since she recently had a vaginal hysterecto my. Her lab test will be reviewed and note ammended with the results. [id number] [facility] Main Office [address] [place] [address] [id number] 5 09/15/2018 11:08:47 09/22/2018 15:28:13 Adult health examination 810689861 Z00.00 Changes were made to your blood pressure medication s because your blood tests showed a low sodium of 133. The hctz hydrochlor othiazide component of the losartan was discontinu ed. A new prescripti on for losartan 100 mg daily was delivered to your pharmacy to control blood pressure. A follow up laboratory to retest the sodium is planned in the next month. You also will reduce excess free water intake but continue to drink enough to satisfy your thirst.The vitamin D level is above normal (30-80) at 84.7. The plan is to stop the high dose 5,000 unit vitamin D supplement and have this retested in several months, as it will take time to decrease.T He hemoglobin A1c testing level of 5.8 indicates a mild increased risk for developing diabetes, so a low sugar and low starch diet is recommende d with reduction in consumptio n of wine. No medication is needed at this time and NO DIABETES is present.Th e high density HDL good cholestero l is 104 and may partially conteract the LDL (bad cholestero l) of 140. We discussed the use of cholestero l lowering medication but you wish to try dietary changes in lieu of additional medication s. The inflammati on marker CRP is 1.63 in the low normal range. It is unclear if the low dose aspirin will benefit you by reducing the risk of a first heart attack or stroke. I recommend discontinu ing it at the first sign of acid reflux, abdomen discomfort or bleeding. The thyroid, kidney function, liver enzymes and complete blood cell analysis was normal. There was no blood detected in the stool sample. The electrocar diogram and pulmonary function testing is not appreciabl y changed.Yo ur local pharmacy did not send me informatio n on your influenza vaccine this year but vaccinatio n against Pneumococc al pneumonia, whooping cough, tetanus, diptheria and shingles are current. You may benefit from the newer ShingRx 2-part shingles vaccine although you did receive the Zostrix vaccine in the past. The ShingRx vaccine is available at your local pharmacy.Sosa Fernandez's records indicate you had a colonoscop y in 2013 so currently this form of colon cancer screening is up to date.You are planning to transfer your care to a doctor closer to home. Please contact us when you are prepared to have your records transferre d but don't hesitate to contact me for an appointmen t or other assistance in the interim. Health Concerns Section Related Observation LastModified by Organization Detai ls LastModified Time None Recorded Concern Status LastModified by Organization Details LastModified Time None Recorded Advance Directives Directive None Recorded Payers Encounter Date Sequence Insurance Name Policy Number Policy Reed Covered Member ID Reed Member ID Guarantor Name 07/24/2016 1 MEDICARE B-[place] Brooke Cruz [id number] -A Brooke Cruz 02/13/2017 1 MEDICARE B-[place] Brooke Cruz [id number] -A Brooke Cruz 07/27/2017 1 MEDICARE [place] Brooke Cruz [id number] -A Brooke Cruz 09/15/2018 1 MEDICARE B-[place] Brooke Cruz [id number] -A Brooke Cruz Notes Date Note Type Note Provider Name and Address Organization Details Recorded Time 07/24/2016 text/html Patient is here for the [facility] Wellness Program. During this visit we will review and discuss their Health Risk Assessment and review the various tests and procedures performed as part of the [facility] Annual Wellness Program. The patient has no current acute medical complaints, nor any recent hospitalizations. Discussion Points for Review during Visit: -Review current medical conditions and specialists' consultations in detail. -Labs and testing review in great detail. -Review risks associated w/pain, nutrition, hydration, sleep, stress, activity and sexual health. -Review risks of alcohol, caffeine, and tobacco. -Preventative services and offer available/appropriate services. -Review personal, home and driving safety. ADIS Booth Amy. 07/24/2016 19:54:37 02/13/2017 text/html 71 yo woman with hx of osteoporosis, htn, hyperlipidemia,pmrShe denies any angina, graham, pnd, edema, syncope in anticipation of the vaginal-hysshe also is in consultation with Dr. Basilio endocrine about worsening scores on bone density after forteo and is now returning to fosamaxSocial hx: no tobacco Janak Villaseñor ADIS gallardo Amy. 02/13/2017 13:37:57 07/27/2017 text/html Medicare Annual Wellness VisitReported bypatient.Diet and Nutrition:healthy diet Fracture Risk:no recent explained fracture; no sudden unexplained fractures; no previous musculoskeletal injuries; wrist fracture 1985 Physical Activity:exercises on a regular basis; recent increase in physical activity; good physical condition Depression Risk:never feels sad, empty, or tearful; no loss of interest in activities; no significant changes in weight; no sleep disturbances or insomnia; no agitation; no loss of energy; no feelings of worthlessness or guilt; no thoughts of suicide; no history of depression; no history of mood disorders Orientation:no disorientation to time; no disorientation to date; no disorientation to place Concentration and Memory:no decreased concentrating ability; no memory lapses or loss; does not forget words Speech/Motor difficulties:no speech difficulties; no difficulty expressing formulated concepts; no difficulty with fine manipulative tasks; no difficulty writing/copying; no slowed reaction time; does not knock things over when trying to pick them up Hearing:wears hearing aids Vision:no vision problems Activities of Daily Living:able to bathe with limited or no assistance; able to contol urination and bowels; able to dress with limited or no assistance; able to feed self with limited or no assistance; able to get out of chair or bed with limited or no assistance; able to groom with limited or no assistance; able to toilet with limited or no assistance Instrumental Activities of Daily Living:able to do house work with limited or no assistance; able to grocery shop with limited or no assistance; able to manage medications with limited or no assistance; able to manage money with limited or no assistance; able to prepare meals with limited or no assistance; able to use the phone with limited or no assistance Falls Risk Assessment:no frequent falls while walking; no fall in the past year; no fall since last visit; no dizziness/vertigo Home Safety:no unsafe vikki hazzards; no unsafe stairs; no unsafe gas appliances; working smoke/CO detectors; wears protective head gear for biking/high velocity; use of seatbelts; practicing 'safer sex'; no vision or hearing loss while driving; no fire arms; has hand bars in the bathroom/shower; good lighting in the home Patient is here for the [facility] Wellness Program and Subsequent Annual Wellness Exam. During this visit we will review and discuss their Health Risk Assessment and review the various tests and procedures performed as part of the [facility] Annual Wellness Exam. The patient has no recent hospitalizations. She is having right hip pain intermittently. An x-ray of the hip was normal and we discussed changing her work chair, sitting position, possibly using an adjustable height desk and clam shell exercise to improve the presumed piriformis muscle pain. She was asked to update me on the issue after her trip. I gave her a copy of the Neptune Diet book, although her diet is extremely healthy and she is exercising vigorously --- she may use some of the recipe's to help Humberto lose weight. 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 My opinion is alendronate should be stopped. She is meeting with her bone specialist this week. Hopefully, the weight bearing exercise and perhaps a further reduction in alcohol consumption will help improve her osteoporosis. Vitamin D may also be supplemented depending on her lab results. She needed prednisone in the past so this likely contributed to the osteoporosis She is have some vaginal pain so she will consult with her surgeon since she recently had a vaginal hysterectomy. Discussion Points for Review during Visit: -Review current medical conditions and specialists' consultations in detail. -Labs and testing review in great detail. -Review risks associated w/pain, nutrition, hydration, sleep, stress, activity and sexual health. -Review risks of alcohol, caffeine, and tobacco. -Preventative services and offer available/appropriate services. -Review personal, home and driving safety.-All 12 systems were reviewed and were negative except as noted above. ADIS Rudd Amy. 08/05/2017 16:23:27 09/15/2018 text/html Medicare Annual Wellness VisitReported bypatient.Diet and Nutrition:healthy diet Fracture Risk:no recent explained fracture; no sudden unexplained fractures; history of wrist fracture 2016 high impact fracture Physical Activity:exercises on a regular basis; recent increase in physical activity; good physical condition Depression Risk:never feels sad, empty, or tearful; no loss of interest in activities; no significant changes in weight; no sleep disturbances or insomnia; no agitation; no loss of energy; no feelings of worthlessness or guilt; no thoughts of suicide; no history of depression; no history of mood disorders Orientation:no disorientation to time; no disorientation to date; no disorientation to place Concentration and Memory:no decreased concentrating ability; no memory lapses or loss; does not forget words Speech/Motor difficulties:no speech difficulties; no difficulty expressing formulated concepts; no difficulty with fine manipulative tasks; no difficulty writing/copying; no slowed reaction time; does not knock things over when trying to pick them up Hearing:wears hearing aids Vision:no vision problems Activities of Daily Living:able to bathe with limited or no assistance; able to contol urination and bowels; able to dress with limited or no assistance; able to feed self with limited or no assistance; able to get out of chair or bed with limited or no assistance; able to groom with limited or no assistance; able to toilet with limited or no assistance Instrumental Activities of Daily Living:able to do house work with limited or no assistance; able to grocery shop with limited or no assistance; able to manage medications with limited or no assistance; able to manage money with limited or no assistance; able to prepare meals with limited or no assistance; able to use the phone with limited or no assistance Falls Risk Assessment:no frequent falls while walking; no fall in the past year; no fall since last visit; no dizziness/vertigo Home Safety:no unsafe stairs; working smoke/CO detectors; use of seatbelts; no vision or hearing loss while driving (since she is wearing her hearing aides); good lighting in the home Patient is here for the [facility] Wellness Program and Subsequent Annual Wellness Exam. During this visit we will review and discuss their Health Risk Assessment and review the various tests and procedures performed as part of the [facility] Annual Wellness Exam. The patient has no recent hospitalizations. Discussion Points for Review during Visit: -Review current medical conditions and specialists' consultations in detail. -Labs and testing review in great detail. -Review risks associated w/pain, nutrition, hydration, sleep, stress, activity and sexual health. -Review risks of alcohol, caffeine, and tobacco. -Preventative services and offer available/appropriate services. -Review personal, home and driving safety.-review of symptoms NEGATIVE for: chest pain, orthopnea, edema, wheezing, headache, syncope, bleeding, acid reflux, diarrhea, incontinence, rash, weight loss, depression, insomnia, memory changes. Some bruising with aspirin is noted. ADIS Rudd Amy. 09/17/2018 11:51:13 OBGyn Episode No OBEpisode recorded.
[2024-10-26 07:25] VITALS: BP 138/68; PULSE 57; RESP 22; TEMP 36.1; O2SAT 98
[2024-10-26] MEDS: LACTATED RINGERS 1,000 ML 150 ML IV CONT (07:38)
--- NOTE | 2024-10-26 08:03 | P.PNAN_ITS ---
Anes - Initial Pre Proc Eval Procedure: Operation Date: 10/26/24 08:30 Proposed Procedures p Colonoscopy - Raul Hernandes MD Date/Time: 10/26/24 08:03 Surgeon: Raul Hernandes MD Pre Op Diagnosis: personal hx of colon polyps Patient Data Age: 79 Gender: F Height: 1.57 m Weight: 51.7 kg Last Vital Signs Temp 36.1 C L 10/26/24 07:25 Pulse 57 L 10/26/24 07:25 Resp 22 H 10/26/24 07:25 BP 138/68 10/26/24 07:25 Pulse Ox 98 10/26/24 07:25 O2 Del Method Room Air 10/26/24 07:25 Allergies Allergy/AdvReac Type Severity Reaction Status Date / Time No Known Allergies Allergy Verified 10/26/24 07:24 Home Medications ?Medication ?Instructions ?Recorded ?Confirmed ?Type mecobalamin (vitamin B12) 1,000 1,000 mcg sublingual DAILY 07/11/19 10/26/24 History mcg disintegrating tablet,sublingual multivitamin 1 cap PO DAILY 07/11/19 10/26/24 History calcium carbonate 1,200 mg PO DAILY 03/07/20 10/26/24 History cholecalciferol (vitamin D3) 10 10 mcg PO DAILY 03/07/20 10/26/24 History mcg (400 unit) capsule omega-3 fatty acids 1,000 mg 1,000 mg PO DAILY #90 caps 04/16/21 10/26/24 Rx capsule (Fish Oil Concentrate) ibuprofen 600 mg tablet See Rx Instructions .Route 10/01/22 10/19/24 Rx .COMPLEX PRN pain #40 tabs folic acid 1 mg tablet See Rx Instructions .Route 06/30/24 10/26/24 Rx .COMPLEX #90 tabs losartan 100 mg tablet See Rx Instructions .Route 09/07/24 10/26/24 Rx .COMPLEX #90 tabs pravastatin 40 mg tablet See Rx Instructions .Route 10/17/24 10/26/24 Rx .COMPLEX #90 tabs Patient hx anesthesia problems: none Family hx anesthesia problems: none Results Review: All pre-operative results and documents have been reviewed as part of the pre-operative evaluation. [facility]LY [facility] Past Medical History Medical History Post-menopausal Breast cancer screening Chest wall pain Low back pain Pain in left shoulder Pain in left hip Dietary counseling and surveillance (07/16/15) Bronchitis Vitamin B12 deficiency Sinus drainage Dyslipidemia Colon cancer screening Left forearm fracture Hearing loss Vitamin D deficiency Encounter for Medicare annual wellness exam Follow up Syncope Abnormal EKG Ventricular quadrigeminy Sinus bradycardia Pre-diabetes Encounter for routine adult health examination without abnormal findings On halfway drug therapy BMI 21.0-21.9, adult Elevated serum homocysteine level Osteoporosis Hypertension Hormone replacement therapy Family History Family History Father Hypertension Acute myocardial infarction, Onset Age: 64 Patient's father is Family history of cardiovascular disease Sibling Hypertension Family history of hypercholesterolemia Family history of cardiovascular disease Mother Family history of lung cancer Patient's mother is Social History Social History Smoking status: Never smoker Second hand tobacco smoke exposure: No Alcohol intake: never Drinks per week: 10 Lack of Transportation: No Lack of Food: Never True Current Housing: I Have Housing Concerned About Future Housing: No Difficulty Paying Gas/Electric Bills: No Difficulty Paying for Meds: No Currently Unemployed: No Education: High School Diploma/GED Difficulty w/ Childcare or Family Care: No Living arrangements: with family Gender identity (if verbalized by the patient): Female Spiritual care concerns: No Anes - Eval Final PreProcedure Day of Procedure 10/26/24 08:03 Patient weight: normal Heart: regular rate and rhythm Lungs: clear to auscultation Airway: Mallampati scale class II Neurological: alert and oriented Last oral intake: >/= 8 hours ASA classification: II Emergent: no Anesthetic plan: proceed Anesthesia type and monitoring: general GIVS and standard monitoring Results Review: All pre-operative results and documents have been reviewed as part of the pre- operative evaluation. Informed Consent: The patient's anesthetic plan and its attendant risks and benefits were discussed with the patient/family/POA. Questions were solicited and answers provided to the satisfaction of the patient/family/POA.
--- NOTE | 2024-10-26 09:00 | PM.IMHP ---
H&P: HPI History of Present Illness Date/Time: 10/26/24 09:00 Chief Complaint: History of colon polyps Narrative: The patient has a history of colonic polyps, the last colonoscopy was more than 10 years ago. Review of Systems Review of Systems: All systems reviewed & are unremarkable except as noted in HPI and below PMFSH Past Medical History Medical History Post-menopausal Breast cancer screening Chest wall pain Low back pain Pain in left shoulder Pain in left hip Dietary counseling and surveillance (07/16/15) Bronchitis Vitamin B12 deficiency Sinus drainage Dyslipidemia Colon cancer screening Left forearm fracture Hearing loss Vitamin D deficiency Encounter for Medicare annual wellness exam Follow up Syncope Abnormal EKG Ventricular quadrigeminy Sinus bradycardia Pre-diabetes Encounter for routine adult health examination without abnormal findings On prison drug therapy BMI 21.0-21.9, adult Elevated serum homocysteine level Osteoporosis Hypertension Hormone replacement therapy Family History Family History Father Hypertension Acute myocardial infarction, Onset Age: 64 Patient's father is Family history of cardiovascular disease Sibling Hypertension Family history of hypercholesterolemia Family history of cardiovascular disease Mother Family history of lung cancer Patient's mother is Social History Social History Smoking status: Never smoker Second hand tobacco smoke exposure: No Alcohol intake: never Drinks per week: 10 Lack of Transportation: No Lack of Food: Never True Current Housing: I Have Housing Concerned About Future Housing: No Difficulty Paying Gas/Electric Bills: No Difficulty Paying for Meds: No Currently Unemployed: No Education: High School Diploma/GED Difficulty w/ Childcare or Family Care: No Living arrangements: with family Gender identity (if verbalized by the patient): Female Spiritual care concerns: No Meds Home Medications and Allergies Home Medications ?Medication ?Instructions ?Recorded ?Confirmed ?Type mecobalamin (vitamin B12) 1,000 1,000 mcg sublingual DAILY 07/11/19 10/26/24 History mcg disintegrating tablet,sublingual multivitamin 1 cap PO DAILY 07/11/19 10/26/24 History calcium carbonate 1,200 mg PO DAILY 03/07/20 10/26/24 History cholecalciferol (vitamin D3) 10 10 mcg PO DAILY 03/07/20 10/26/24 History mcg (400 unit) capsule omega-3 fatty acids 1,000 mg 1,000 mg PO DAILY #90 caps 04/16/21 10/26/24 Rx capsule (Fish Oil Concentrate) ibuprofen 600 mg tablet See Rx Instructions .Route 10/01/22 10/19/24 Rx .COMPLEX PRN pain #40 tabs folic acid 1 mg tablet See Rx Instructions .Route 06/30/24 10/26/24 Rx .COMPLEX #90 tabs losartan 100 mg tablet See Rx Instructions .Route 09/07/24 10/26/24 Rx .COMPLEX #90 tabs pravastatin 40 mg tablet See Rx Instructions .Route 10/17/24 10/26/24 Rx .COMPLEX #90 tabs Allergies Allergy/AdvReac Type Severity Reaction Status Date / Time No Known Allergies Allergy Verified 10/26/24 07:24 Vital Signs Vital Signs - 24 hr 10/26/24 07:25 Temperature 96.9 F L Pulse Rate 57 L Respiratory Rate 22 H Blood Pressure 138/68 Pulse Oximetry 98 Oxygen Delivery Room Air Exam Const: General: cooperative and healthy appearing Resp: Effort & Inspection: normal respiratory effort and able to speak in complete sentences Auscultation: clear to auscultation bilaterally Cardio: Rate: regular rate Rhythm: regular rhythm GI: Inspection: normal to inspection GI Palp: No No hepatosplenomegaly present Auscultation: normal bowel sounds Rectal Exam: deferred Skin: General skin exam: normal color Psych: Appearance: grossly normal Mental Status: mental status grossly normal Assessment and Plan Assessment and plan (1) Colon cancer screening: Code(s): Z12.11 - Encounter for screening for malignant neoplasm of colon Status: Acute Assessment and Plan: The patient is deemed a good candidate for the procedure. Consent signed. Will proceed.
[2024-10-26 09:26] VITALS: BP 116/59; PULSE 53; RESP 13; O2SAT 100
[2024-10-26 09:36] VITALS: BP 155/55; PULSE 53; RESP 17; O2SAT 100
[2024-10-26 09:46] VITALS: BP 151/50; PULSE 55; RESP 16; O2SAT 100
== END 2024-10-26 10:00 | disposition home or self-care (01) ==
PROVIDERS: PCP Internal Medicine; Referring Provider Internal Medicine; Visit Provider Internal Medicine Gastroenterology
PROC: 0DJD8ZZ Inspection of Lower Intestinal Tract, Via Natural or Artificial Opening Endoscopic (ICD-10-PCS; CPT 45378; principal; 2024-10-26 08:30)
DX: Z12.11 Encounter for screening for malignant neoplasm of colon (principal); Z86.0100 Personal history of colon polyps, unspecified
CPT/HCPCS: G0105; J2003; J2704; J7120

== ENCOUNTER 2024-12-27 09:59 | Outpatient (CLI) | payer MEDICARE, SELFPAY ==
--- OUTSIDE RECORDS SUMMARY | 2024-12-27 10:51 | XMS_ITS | Encounter Summary ---
Author Organization [facility] Address [address] [place] [address] Care Team Providers Care Fire Production Operator Name Role Phone Janak Villaseñor MD Primary Care Provider Encounter Details Date Type Department Care Team (Late st Contact Info) Description 01/22/2024 Lab Requisition [facility] - DermPath Lab [address] [place] [id number] Kristofer Farley MD [address] [place] [address] Social History Tobacco Use Types Packs/Day Years Used Date Smoking Tobacco: Never Smokeless Tobacco: Never Alcohol Use Standard Drinks/Week Comments Yes 1 (1 standard drink = 0.6 oz pur e alcohol) Comments Unknown Sex and Gender Information Value Date Recorded Sex Assigned at Not on file Legal Sex Female 12:20 PM CDT Gender Identity Female 03/18/2017 8:47 AM CDT Sexual Orientation Not on file documented as of this encounter Plan of Treatment Not on file documented as of this encounter Procedures Procedure Name Priority Date/Time Associated Diagnosis Comments DERMATOPATHOLOGY Routine 01/19/2024 12:0 0 AM CDT documented in this encounter Results * DERMATOPATHOLOGY (01/19/2024 12:00 AM CDT) Case Report Dermatopathology Report Case: [id number] Authorizing Provider: Kristofer Farley MD Collected: 01/19/2024 12:00 AM Ordering Location: [facility] - Received: 01/22/2024 08:24 AM DermPath Lab Pathologist: Sandhya Vail MD Specimen: Skin, right superior forehead 4:45 PM CDT DERMATOPATHOLOGY LABORATORY Final Diagnosis Specimen A. 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 The specimen consists of a shave biopsy measuring 85w82a4 mm. Jar 0. 4:45 PM CDT DERMATOPATHOLOGY [...] characteristic determined by the Dermatopathology Laboratory at [facility], directed by Dr. Ricki Adams. These tests need not be, and therefore are not, approved by the [place] Food and Drug Administration. The tests are used for clinical purposes. Billing Codes Specimen Charges Stain Charges 89461 1 4:45 PM CDT DERMATOPATHOLOGY LABORATORY Embedded Images 4:45 PM CDT DERMATOPATHOLOGY LABORATORY Pathology/Cytolog y TISSUE SPECIMEN FROM SKIN / Unknown 01/19/2024 01/22/2024 8:24 AM CDT us Kristofer Farley MD LAB - PATHOLOGY/CYTOLOGY ORD ERABLES Final Result DERMATOPATHOLOGY LABORATORY [facility] - Department of Dermatology [address], [address] [phone] documented in this encounter Visit Diagnoses Not on filedocumented in this encounter Care Teams Fire Production Operator Relationship Specialty Start Date End Date Janak Villaseñor MD PCP - General Internal Medicine 03/18/17 documented as of this encounter
--- OUTSIDE RECORDS SUMMARY | 2024-12-27 10:52 | XMS_ITS | Clinical Summary ---
Author Organization [facility] Address [address] [place] [address] Care Team Providers Care Aircraft Electrical Systems Specialist Name Role Phone Janak Villaseñor MD Primary Care Provider [phone] Source Comments [facility],non-owned Affiliates and Associated Physician Practices is amultiple site organization consisting of ambulatory clinics and hospital sitesin [place], [place], [place] and [place]. This disclosure is being madepursuant to the Care Everywhere program and may not contain all information available regarding this patient. Last updated 18.[facility] Allergies No known active allergies Medications * Be aware that medications may not be up to date on this document. Alwaysverify current medications with the patient. alendronate (FOSAMAX) 70 MG tablet 02/12/2017 Active aspirin (ASPIRIN) 81 MG tablet Take 81 mg by mouth Active Cholecalciferol 1000 UNIT/10ML Activ e losartan-hydroC HLOROthiazide (HYZAAR) 100-25 MG tablet 12/09/2016 Active Methylsulfonylm ethane (MSM) 1000 MG Active multivitamin daily (THERAGRAN) tablet Take 1 Tab by mouth daily with food Active oxyCODONE-aceta minophen (PERCOCET) 5-325 MG tablet Take 1-2 Tabs [...] 9:46 AM CDT Height 157.5 cm (5' 2) 04/21/2017 9:46 AM CDT Body Mass Index 21.4 04/21/2017 9:46 AM CDT Plan of Treatment Health Maintenance Due Date Last Done Comments BONE DENSITY TESTING 1945 MEDICARE AWV 12 MONTHS 1945 DTAP/TDAP/TD VACCINES (1 - Tdap) 1964 PNEUMOCOCCAL [...] this topic Medical Devices Implanted Type Area Institution Librarian Device Identifier Shelf Expiration Date Model / Serial / Lot Graft Tissue Xenform Ftl Bvn Drml Mtrx - Sgtin [id number] Implanted:Qty: 1 on 03/18/2017 by Dennis Ahmadi MD at [facility] [employer] 11/16/2018 [id number] / GTIN [id number] / [id number] Description:Implanted into a nterior vaginal wall. Sys Ureth Supp Obtryx Midurethral Trnstr - Sgtin [id number] Implanted:Qty: 1 on 03/18/2017 by Dennis Ahmadi MD at [facility] [employer] 07/31/2019 [id number] / GTIN [id number] / [id number] [place] [address] MEDICARE AET Advance Directives * Full Code (Latest Code Status on File) Date Activated Date Inactivated Comments 03/18/2017 5:44 PM 03/19/2017 4:02 PM Care Teams Aircraft Electrical Systems Specialist Relationship Specialty Start Date End Date Janak Villaseñor MD PCP - General Internal Medicine 03/18/17
--- OUTSIDE RECORDS SUMMARY | 2024-12-27 10:52 | XMS_ITS | Clinical Summary ---
Author Organization [facility] Address [address] [place] [id number] Care Team Providers Care Hotel Director Name Role Phone Albert Taylor MD Primary Care Provider [phone] Allergies No known active allergies Medications multivitamin [...] Comments Blood Pressure 139/78 07/26/2019 7:54 AM CHIEF SUSTAINABILITY OFFICER Pulse 59 07/26/2019 7:54 AM CHIEF SUSTAINABILITY OFFICER Temperature 36.8 C (98.2 F) 07/26/2019 7:54 AM CHIEF SUSTAINABILITY OFFICER Respiratory Rate - - Oxygen Saturation - - Inhaled Oxygen Concentration - - Weight 50.9 kg (112 lb 3.2 oz) 07/26/2019 7:54 A M CHIEF SUSTAINABILITY OFFICER Height 154.4 cm (5' 0.8) 07/26/2019 7:54 AM CHIEF SUSTAINABILITY OFFICER Body Mass Index 21.34 07/26/2019 7:54 AM CHIEF SUSTAINABILITY OFFICER Plan of Treatment Not on file Insurance MEDICARE [facility] [employer] Care Teams Hotel Director Relationship Specialty Start Date End Date Albert Taylor MD [address] [facility] [address] [place] [address] PCP - General Internal Medicine 12/02/18
--- OUTSIDE RECORDS SUMMARY | 2024-12-27 10:52 | XMS_ITS | Data Portability ---
Author Organization Amy. Rojas Mai n Office Address [address] [place] [id number] Assessment Encounter Date Assessment Date Assessment LastModified by Organization Details LastModified Time 02/13/2017 02/13/2017 Low risk for surgery, plans weight lifting to improve bone density and I have requested records [facility] labs for menopause with annual physical [email or web address] Not available 02/13/2017 13:37:11 Plan of Treatment Reminders Order Date Submit Date Provider Last Modified By Organization Details Last Modified Time Details Appointments None recorded. Lab CMP, serum or plasma 2018 019 to be, [address] [facility], [place], [address], 9 11:33:50 TSH, serum or plasma 2018 019 to be, [address] [place], [address], 9 11:33:52 CBC w/ auto diff 2018 019 to be, [address] [facility], [place], [address], 9 11:33:51 vitamin D, 25-hydroxy, total, serum 2018 019 to be, [address] [facility], [place], [address], 9 11:33:52 C-reactive protein, quantitativ e, serum or plasma 2018 019 [facility], [address], [place], [address], 9 11:33:49 lipid panel, blood 2018 019 [facility], [address], [place], [address], 9 11:33:50 HbA1c (hemoglobin A1c), blood 2018 019 [facility], [address], [place], [address], 9 11:33:53 fecal occult blood, immunoassay , stool 2018 019 [facility] Main Office, [address] [place] [address], [address], [address], 9 11:45:47 Referral None recorded. Procedures None recorded. Surgeries None recorded. Imaging electrocard iogram 2018 019 [email or web address] Main Office, [address] [place] [address], Suite [facility], [place], [address], 9 15:28:13 electrocard iogram 2017 018 Main Office, [address] [place] [address], Suite [facility], [place], [address], 8 21:45:12 Medication Orders None recorded. Patient TargetsNo targets recorded. Patient Instructions Encounter Date Encounter Id Patient Instructions Last Modified By Organization Details Last Modified Time 07/24/2016 [id number] We reviewed your current medical conditions and specialists consultations in detail, as well as your labs and testing. We reviewed risks associated with pain, nutrition, hydration, sleep, stress, activity and sexual health. Risks of alcohol, caffeine, and tobacco use reviewed. Preventive services were reviewed and offered available/appropri ate services. Reviewed personal, home and driving safety. [email or web address] Not available 07/24/2016 11:30:00 07/27/2017 [id number] fernández anxiety inventory* rkundra Not available 07/28/2017 00:08:02 epworth sleepine ss scale* rkundra Not available 07/28/2017 00:08:02 functional assessment screening* rkundra Not available 07/28/2017 00:08:02 spirometry testing* rkundra Not available 07/28/2017 00:08:02 visual acuity* rkundra Not available 0 07/28/2017 00:08:02 In compliance wi th Medicare guidelines, we will be billing Medicare to inform them of your adherence to completing your necessary preventive care. [email or web address] Not available 07/27/2017 11:38:33 09/15/2018 [id number] fernández anxiety inventory* rkundra Not available 09/17/2018 [...] adherence to completing your necessary preventive care. [email or web address] Not available 09/15/2018 11:09:33 Reason for Referral None Reported. Results Created Date Observation Date Name Description Value Unit Range Abnormal Flag Note LastModifiedBy Organization Detail LastModifiedTime 09/15/19 19 09/15/2018 fecal occul t blood , immun oassa y, stool iFOB negati ve Not Available Main Office [address], [address], 09/15/2018 11:11:38 09/15/19 19 09/15/2018 young metry testi ng* Spirometry normal Not Available Main Of fice [address], [address], 09/15/2018 11:11:35 09/15/19 19 09/15/2018 gonzalo moregr am Rate & Rhythm Sinus Not Available Main O ffice [address], [address], 09/15/2018 11:11:33 09/15/19 19 09/15/2018 elect rocar diogr am QRS 87 Not Available Main Offic e [address] [address], [place], [address], 09/15/2018 11:11:33 09/15/19 19 09/15/2018 elect rocar diogr am MA Interval 145 Not Available Main O ffice [address] [facility] [address] [facility], [place], [address], 09/15/2018 11:11:33 09/15/19 19 09/15/2018 elect rocar diogr am QRS Duration 22 Not Available Main Office [address], [address], 09/15/2018 11:11:33 09/15/19 19 09/15/2018 elect rocar diogr am QT Interval 432 Not Available Main O ffice [address], [address], 09/15/2018 11:11:33 09/15/19 19 09/15/2018 funct ional asses sment scree jose* Gender Female Not Available Main Offic e [address] [address], [place], [address], 09/15/2018 11:11:03 09/15/1909/15/2018 funct ional asses sment scree jsoe* Results Discus sed Not Available Main Office [address], [address], 09/15/2018 11:11:03 09/15/1909/15/2018 mini menta l state exam* Total Score 30 Not Available Main O ffice [address] [address], [place], [address], 09/15/2018 11:11:03 09/15/1909/15/2018 mini menta l state exam* Indication Normal Not Available Main Of fice [address] [facility] [address], [place], [address], 09/15/2018 11:11:03 09/15/19 19 09/15/2018 epwor th sleep iness scale * Total Score 2 Not Available Main O ffice [address], [address], 09/15/2018 11:11:02 09/15/19 19 09/15/2018 epwor th sleep iness scale * Indication Normal Not Available Main Of fice [address], [address], 09/15/2018 11:11:02 09/15/19 19 09/15/2018 fernández anxie ty inven tory* Total Score 3 Not Available Main O ffice [address] [place] [address], [address], 09/15/2018 11:11:02 09/15/19 19 09/15/2018 fernández anxie ty inven tory* Indication Minima l anxiet y Not Available Main Office [address] [place] [address], [address], 09/15/2018 11:11:02 07/27/19 18 07/27/2017 visua l acuit y* Unknown Analyte Patien t satisf ied w/ anothe r provid er Not Available Main Office [address] [place] [address], [address], 07/27/2017 12:08:18 07/27/19 18 07/27/2017 elect rocar diogr am Rate & Rhythm sinus Not Available Main O ffice [address] [place] [address], [address], 07/27/2017 12:08:13 07/27/19 18 07/27/2017 elect rocar diogr am QRS 91 Not Available Main Offic e [address] [place] [address], [address], 07/27/2017 12:08:13 07/27/19 18 07/27/2017 elect rocar diogr am MA Interval 147 Not Available Main O ffice [address] [facility] [address], [place], [address], 07/27/2017 12:08:13 07/27/19 18 07/27/2017 elect monty diogr am QRS Duration 21 Not Available Main Office [address] [facility] [address], [place], [address], 07/27/2017 12:08:13 07/27/19 18 07/27/2017 elect monty diogr am QT Interval 458 Not Available Main O ffice [address] [facility] [address], [place], [address], 07/27/2017 12:08:13 07/27/19 18 07/27/2017 young metry testi ng* Spirometry normal Not Available Main Of fice [address] [facility] [address], [place], [address], 07/27/2017 12:08:12 07/27/19 18 07/28/2017 lipid panel , serum cholesterol 224 mg/dL 75-200 high Not Available [facility] ([facility]) [address] [place] [address] [address], [place], [address], 07/28/2017 13:15:16 07/27/19 18 07/28/2017 lipid panel , serum triglyceride s 69 mg/dL <150 Not Available [facility] ([facility]) [address] [place] [address] [address], [place], [address], 07/28/2017 13:15:16 07/27/19 18 07/28/2017 lipid panel , serum HDL cholesterol 93 mg/dL >39 Not Available [facility] ([facility]) [address] [place] [address] [address], [place], [address], 07/28/2017 13:15:16 07/27/19 18 07/28/2017 lipid panel , serum cholesterol / HDL ratio 2.41 ratio 0.00-4 .44 Not Available [facility]) [address] [facility] [address], [place], [address], 07/28/2017 13:15:16 07/27/19 18 07/28/2017 lipid panel , serum non-HDL cholesterol 131 mg/dL <130 high Not Available [facility] ([facility]) [address], [place], [address], 07/28/2017 13:15:16 07/27/19 18 07/28/2017 lipid panel [...] 2004 ATPII I guide lines Not Available [facility] ([facility]) [address] [facility] [address], [place], [address], 07/28/2017 13:15:16 07/27/19 18 07/28/2017 lipid panel [...] Sonam burnham (LIPC VD). Not Available [facility] ([facility]) [address], [place], [address], 07/28/2017 13:15:16 07/27/19 18 07/28/2017 CBC w/ auto diff WBC 6.3 K/uL 3.8-11 .5 E ffect leisa 06/29 New WBC Count Refer ence Range for Adult Males and Femal es: 3.8-1 1.5 K/uL Previ ous WBC Count Refer ence Range for Adult Males and Femal es: 3.8-1 2.8 K/uL Not Available [facility] ([facility]) [facility] [facility] [address], [place], [address], 07/28/2017 13:15:17 07/27/19 18 07/28/2017 CBC w/ auto diff red blood cell count (RBC) 4.24 M/mm3 3.60-5 .30 E ffect elisa 2016 New Red Blood Count Refer ence Range for Adult Femal es: 3.6-5 .3 M/mm3 Previ ous Red Blood Count Refer ence Range for Adult Femal es: 3.7-5 .1 M/mm3 Not Available [facility] ([facility]) [address] [place] [address] [address], [place], [address], 07/28/2017 13:15:17 07/27/19 18 07/28/2017 CBC w/ auto diff hemoglobin (HGB) 13.3 gm/dL 12.0-1 6.0 Not Available [facility] ([facility]) [address] [place] [address] [address], [place], [address], 07/28/2017 13:15:17 07/27/19 18 07/28/2017 CBC w/ auto diff hematocrit (HCT) 40.7 % 37.4-4 8.3 Not Available [facility] ([facility]) [address] [place] [address] [address], [place], [address], 07/28/2017 13:15:17 07/27/19 18 07/28/2017 CBC w/ auto diff MCV 96.0 fL 81.0-1 02.0 Not Available [facility] ([facility]) [address] [place] [address] [address], [place], [address], 07/28/2017 13:15:17 07/27/19 18 07/28/2017 CBC w/ auto diff MCH 31.4 pg 26.9-3 5.0 Not Available [facility] ([facility]) [address] [place] [address] [address], [place], [address], 07/28/2017 13:15:17 07/27/19 18 07/28/2017 CBC w/ auto diff MCHC 32.7 g/dL 30.4-3 4.8 Not Available [facility] ([facility]) [address] [place] [address] Dr [address], [place], [address], 07/28/2017 13:15:17 07/27/19 18 07/28/2017 CBC w/ auto diff RDW 45.8 fL 38.6-5 3.8 Not Available [facility] ([facility]) [address] [place] [address] Dr [address], [place], [address], 07/28/2017 13:15:17 07/27/19 18 07/28/2017 CBC w/ auto diff platelet count 342 K/cum m 137-39 7 Not Available [facility] ([facility]) [address] [place] [address] Dr [address], [place], [address], 07/28/2017 13:15:17 07/27/19 18 07/28/2017 CBC w/ auto diff neutrophils automated 65.7 % 41.0-7 7.0 Not Available [facility] ([facility]) [address] [place] [address] Dr [address], [place], [address], 07/28/2017 13:15:17 07/27/19 18 07/28/2017 CBC w/ auto diff lymphocytes automated 18.6 % 14.0-4 8.0 Not Available [facility] ([facility]) [address] [place] [address] [address], [place], [address], 07/28/2017 13:15:17 07/27/19 18 07/28/2017 CBC w/ auto diff monocytes automated 10.4 % 4.0-13 .0 Not Available [facility] ([facility]) [address] [place] [address] Dr [address], [place], [address], 07/28/2017 13:15:17 07/27/19 18 07/28/2017 CBC w/ auto diff eosinophils automated 3.9 % 1.0-8. 0 Not Available [facility] ([facility]) [address] [place] [address] Dr [address], [place], [address], 07/28/2017 13:15:17 07/27/19 18 07/28/2017 CBC w/ auto diff basophils automated 1.1 % 0.0-1. 5 Not Available [facility] ([facility]) [address] [place] [address] Dr [address], [place], [address], 07/28/2017 13:15:17 07/27/19 18 07/28/2017 CBC w/ auto diff immature granulocyte automated 0.3 % 0.0-1. 0 Not Available [facility] ([facility]) [address] [place] [address] Dr [address], [place], [address], 07/28/2017 13:15:17 07/27/19 18 07/28/2017 CMP, serum or plasm a sodium 133 mEq/L 134-14 5 low Not Available [facility] ([facility]) [address] [place] [address] Dr [address], [place], [address], 07/28/2017 13:15:18 07/27/19 18 07/28/2017 CMP, serum or plasm a potassium 3.9 mEq/L 3.4-5. 4 Not Available [facility] ([facility]) [address] [place] [address] Dr [address], [place], [address], 07/28/2017 13:15:18 07/27/19 18 07/28/2017 CMP, serum or plasm a chloride 94 mEq/L 97-109 low Not Available [facility] ([facility]) [address] [place] [address] Dr [address], [place], [address], 07/28/2017 13:15:18 07/27/19 18 07/28/2017 CMP, serum or plasm a CO2 26 mEq/L 22-32 Not Available [facility] ([facility]) [address] [place] [address] Dr [address], [place], [address], 07/28/2017 13:15:18 07/27/19 18 07/28/2017 CMP, serum or plasm a glucose 91 mg/dL 65-99 Ef fecti ve 2016* New GLU Refer ence Range : 65-99 mg/dL Previ ous GLU Refer ence Range : 65-10 5 mg/dL Not Available [facility]) [address] [place] [address] Dr [address]de, [place], [address], 07/28/2017 13:15:18 07/27/19 18 07/28/2017 CMP, serum or plasm a BUN 12 mg/dL 5-26 Not Available [facility] ([facility]) [address] [place] [address] Dr [address]de, [place], [address], 07/28/2017 13:15:18 07/27/19 18 07/28/2017 CMP, serum or plasm a creatinine 0.5 mg/dL 0.5-1. 5 Not Available [facility] ([facility]) [address] [place] [address] Dr [address], [place], [address], 07/28/2017 13:15:18 07/27/19 18 07/28/2017 CMP, serum or plasm a calcium 9.4 mg/dL 8.5-10 .3 Not Available [facility] ([facility]) [address] [place] [address] Dr [address]de, [place], [address], 07/28/2017 13:15:18 07/27/19 18 07/28/2017 CMP, serum or plasm a protein 6.5 g/dL 6.1-8. 3 Not Available [facility] ([facility]) [address] [place] [address] Dr [address]de, [place], [address], 07/28/2017 13:15:18 07/27/19 18 07/28/2017 CMP, serum or plasm a albumin 4.3 g/dL 3.7-5. 2 Not Available [facility]) [address] [place] [address] Dr [address]de, [place], [address], 07/28/2017 13:15:18 07/27/19 18 07/28/2017 CMP, serum or plasm a alkaline phosphatase 59 IU/L 38-126 Not Available [facility] ([facility]) [address] [place] [address] Dr Verde, [place], [address], 07/28/2017 13:15:18 07/27/19 18 07/28/2017 CMP, serum or plasm a ALT (SGPT) 12 IU/L 7-52 Not Available [facility] ([facility]) [address] [place] [address] Dr Verde, [place], [address], 07/28/2017 13:15:18 07/27/19 18 07/28/2017 CMP, serum or plasm a AST (SGOT) 18 IU/L 13-39 Not Available [facility] ([facility]) [address] [place] [address] Dr Verde, [place], [address], 07/28/2017 13:15:18 07/27/19 18 07/28/2017 CMP, serum or plasm a bilirubin, total 0.5 mg/dL 0.2-1. 5 Not Available [facility]) [address] [place] [address] Dr Verde, [place], [address], 07/28/2017 13:15:18 07/27/19 18 07/28/2017 CMP, serum or plasm a A/G ratio 2.0 mg/dL 1.1-2. 5 Not Available [facility]) [address] [place] [address] Dr Verde, [place], [address], 07/28/2017 13:15:18 07/27/19 18 07/28/2017 GFR, estim ated (eGFR ), serum GFR/black >60 mL/mi n/1.7 3m2 >60 Not Available [facility]) [address] [place] [address] Dr Verde, [place], [address], 07/28/2017 13:15:18 07/27/19 18 07/28/2017 GFR, estim ated (eGFR ), serum GFR/white >60 mL/mi n/1.7 3m2 >60 Chron ic Kidne y Disea se: Less than 60 ml/mi n/1.7 3 squar e meter s End Stage Renal Disea se: Less than 15 ml/mi n/1.7 3 squar e meter s Not Available [facility] ([facility]) [address] [place] [address] Dr Verde, [place], [address], 07/28/2017 13:15:18 07/27/19 18 07/28/2017 HbA1c (hemo [...] ic <5.7% Non-D iabet ic Not Available [facility]) [address] [place] [address] Dr Verde, [place], [address], 07/28/2017 13:15:19 07/27/19 18 07/28/2017 estim ated avera ge gluco se estimated average glucose 123 mg/dL [place] ge Gluco se is calcu lated using the equat ion AG = (28.7 x HgbA1 c) - 46.7 based on the guide lines estab [place] by the ADA. Not Available [facility] ([facility]) [address] [place] [address] Dr [address]de, [place], [address], 07/28/2017 13:15:19 07/27/19 18 07/28/2017 C-saul ctive prote in, quant itati ve, serum or plasm a C-reactive protein (CRP) <0.5 mg/dL 0.5-0. 9 low Not Available [facility]) [address] [place] [address] Dr Verde, [place], [address], 07/28/2017 13:15:20 07/27/19 18 07/28/2017 TSH, serum or plasm a TSH 1.45 mU/L 0.34-5 .00 Not Available [facility]) [address] [place] [address] Dr Verde, [place], [address], 07/28/2017 13:15:20 07/27/19 18 07/28/2017 vitam in [...] n requi red. Not Available [facility]) [address], [place], [address], 07/28/2017 13:15:21 07/27/19 18 07/27/2017 funct ional asses sment scree jose* Gender Woman Not Available Main Offic e [address] [place] [address], [place], [address], 07/27/2017 11:38:36 07/27/19 18 07/27/2017 funct ional asses sment scree jose* Status if Not Performed Patien t refuse d Not Available Main Office [address] [place] [address], [address], 07/27/2017 11:38:36 07/27/19 18 07/27/2017 epwor th sleep iness scale * Total Score 3 Not Available Main O ffice [address] [place] [address], [place], [address], 07/27/2017 11:38:35 07/27/19 18 07/27/2017 epwor th sleep iness scale * Indication Normal Not Available Main Of fice [address] [place] [address], [place], [address], 07/27/2017 11:38:35 07/27/19 18 07/27/2017 fernández anxie ty inven tory* Total Score 0 Not Available Main O ffice [address] [place] [address], [place], [address], 07/27/2017 11:38:35 07/27/19 18 07/27/2017 fernández anxie ty inven tory* Indication Normal Not Available Main Of [address], [address], 07/27/2017 11:38:35 09/15/19 19 09/15/2018 C-saul ctive prote in, quant itati ve, serum or plasm a C-reactive protein 1.63 mg/L 0.00-1 0.00 normal Not Available [facility] (Lab) [address] [place], [address], 09/16/2018 11:33:49 09/15/19 19 09/15/2018 lipid panel , blood total cholesterol 257 mg/dL 0-199 high Not Available [facility] (Lab) [address] [place], [address], 09/16/2018 11:33:50 09/15/19 19 09/15/2018 lipid panel , blood triglyceride s 64 mg/dL 0-149 normal Not Available [facility] (Lab) [address] [facility], [place], [address], 09/16/2018 11:33:50 09/15/19 19 09/15/2018 lipid panel , blood HDL cholesterol 104 mg/dL 50-240 normal Not Available [facility] (Lab) [address] [facility], [place], [address], 09/16/2018 11:33:50 09/15/19 19 09/15/2018 lipid panel , blood LDL cholesterol 140 mg/dL 0-99 high Not Available [facility] (Lab) [address] [facility], [place], [address], 09/16/2018 11:33:50 09/15/19 19 09/15/2018 lipid panel , blood chol/HDL ratio 2.5 Not Available [facility] (Lab) [address] [place], [address], 09/16/2018 11:33:50 09/15/19 19 09/15/2018 lipid panel [...] Elida penn 2001; 106:3 143. Not Available [facility] (Lab) [address], [place], [address], 09/16/2018 11:33:50 09/15/19 19 09/15/2018 CMP, serum or plasm a glucose 103 mg/dL 70-99 high Not Available [facility] (Lab) [address] [place], [address], 09/16/2018 11:33:50 09/15/19 19 09/15/2018 CMP, serum or plasm a urea nitrogen 11 mg/dL 8-23 normal Not Available [facility] (Lab) [address] [place], [address], 09/16/2018 11:33:50 09/15/19 19 09/15/2018 CMP, serum or plasm a creatinine 0.6 mg/dL 0.5-1. 2 normal Not Available [facility] (Lab) [address] [place], [address], 09/16/2018 11:33:50 09/15/19 19 09/15/2018 CMP, serum or plasm a GFR() 126 mL/mi n/1.7 3_m2 60-300 normal Not Available [facility] (Lab) [address] [place], [address], 09/16/2018 11:33:50 09/15/19 19 09/15/2018 CMP, serum or plasm a GFR(others) 104 mL/mi n/1.7 3_m2 60-300 normal Not Available [facility] (Lab) [address] [place], [address], 09/16/2018 11:33:50 09/15/19 19 09/15/2018 CMP, serum or plasm a sodium 133 mEq/L 136-14 5 low Not Available [facility] (Lab) [address] [place], [address], 09/16/2018 11:33:50 09/15/19 19 09/15/2018 CMP, serum or plasm a potassium 4.6 mEq/L 3.5-5. 3 normal Not Available [facility] [facility] ([facility] [address] [place], [address], 09/16/2018 11:33:50 09/15/19 19 09/15/2018 CMP, serum or plasm a chloride 92 mEq/L 98-107 low Not Available [facility] (Lab) [address] [place], [address], 09/16/2018 11:33:50 09/15/19 19 09/15/2018 CMP, serum or plasm a CO2 26 mEq/L 23-31 normal Not Available [facility] (Lab) [address] [place], [address], 09/16/2018 11:33:50 09/15/19 19 09/15/2018 CMP, serum or plasm a anion gap 15 mmole s/L 8-16 normal Not Available [facility] (Lab) [address] [facility] [place], [address], 09/16/2018 11:33:50 09/15/19 19 09/15/2018 CMP, serum or plasm a calcium 9.6 mg/dL 8.8-10 .5 normal Not Available [facility] (Lab) [address] [facility], [place], [address], 09/16/2018 11:33:50 09/15/19 19 09/15/2018 CMP, serum or plasm a total protein 7.1 gm/dL 6.0-8. 3 normal Not Available [facility] (Lab) [address] [place], [address], 09/16/2018 11:33:50 09/15/19 19 09/15/2018 CMP, serum or plasm a albumin 4.5 gm/dL 3.5-5. 0 normal Not Available [facility] (Lab) [address] [place], [address], 09/16/2018 11:33:50 09/15/19 19 09/15/2018 CMP, serum or plasm a AST (SGOT) 19 IU/L 11-32 normal Not Available [facility] (Lab) [address] [place], [address], 09/16/2018 11:33:50 09/15/19 19 09/15/2018 CMP, serum or plasm a ALT (SGPT) 15 IU/L 9-43 normal Not Available [facility] (Lab) [address] [place], [address], 09/16/2018 11:33:50 09/15/19 19 09/15/2018 CMP, serum or plasm a alkaline phos 69 IU/L 35-129 normal Not Available [facility] (Lab) [address], [place], [address], 09/16/2018 11:33:50 09/15/19 19 09/15/2018 CMP, serum or plasm a total bilirubin 0.5 mg/dL 0.0-1. 0 normal Not Available [facility] (Lab) [address], [place], [address], 09/16/2018 11:33:50 09/15/19 19 09/15/2018 CBC w/ auto diff white blood cells 7.0 k/cu_ mm 3.6-10 .2 normal Not Available [facility] (Lab) [address], [place], [address], 09/16/2018 11:33:51 09/15/19 19 09/15/2018 CBC w/ auto diff red blood cells 4.3 m/cu_ mm 4.1-5. 3 normal Not Available [facility] (Lab) [address], [place], [address], 09/16/2018 11:33:51 09/15/19 19 09/15/2018 CBC w/ auto diff hemoglobin 13.7 gm/dL 11.9-1 5.8 normal Not Available [facility] (Lab) [address], [place], [address], 09/16/2018 11:33:51 09/15/19 19 09/15/2018 CBC w/ auto diff hematocrit 41.5 perce nt 37.4-4 8.3 normal Not Available [facility] (Lab) [address] [facility], [place], [address], 09/16/2018 11:33:51 09/15/19 19 09/15/2018 CBC w/ auto diff MCV 97 fL 82-99 normal Not Available [facility] (Lab) [address], [place], [address], 09/16/2018 11:33:51 09/15/19 19 09/15/2018 CBC w/ auto diff MCH 32 pg 27-33 normal Not Available [facility] (Lab) [address], [place], [address], 09/16/2018 11:33:51 09/15/19 19 09/15/2018 CBC w/ auto diff MCHC 33 perce nt 32-36 normal Not Available [facility] (Lab) [address], [place], [address], 09/16/2018 11:33:51 09/15/19 19 09/15/2018 CBC w/ auto diff platelets 347 k/cu_ mm 150-45 0 normal Not Available [facility] (Lab) [address], [place], [address], 09/16/2018 11:33:51 09/15/19 19 09/15/2018 CBC w/ auto diff MPV 10.8 fL 9.8-12 .7 normal Not Available [facility] (Lab) [address] [place], [address], 09/16/2018 11:33:51 09/15/19 19 09/15/2018 CBC w/ auto diff RDW-CV 13 perce nt 11-15 normal Not Available [facility] (Lab) [address] [place], [address], 09/16/2018 11:33:51 09/15/19 19 09/15/2018 CBC w/ auto diff neutrophils 65 perce nt 37-72 normal Not Available [facility] (Lab) [address] [place], [address], 09/16/2018 11:33:51 09/15/19 19 09/15/2018 CBC w/ auto diff lymphocytes 22 perce nt 16-48 normal Not Available [facility] (Lab) [address] [place], [address], 09/16/2018 11:33:51 09/15/19 19 09/15/2018 CBC w/ auto diff monocytes 8 perce nt 4-14 normal Not Available [facility] (Lab) [address] [place], [address], 09/16/2018 11:33:51 09/15/19 19 09/15/2018 CBC w/ auto diff eosinophils 4 perce nt 0-9 normal Not Available [facility] (Lab) [address], [place], [address], 09/16/2018 11:33:51 09/15/19 19 09/15/2018 CBC w/ auto diff basophils 1 perce nt 0-2 normal Not Available [facility] (Lab) [address], [place], [address], 09/16/2018 11:33:51 09/15/19 19 09/15/2018 CBC w/ auto diff nucleated RBC 0.00 /100_ WBC 0.00-0 .00 normal Not Available [facility] (Lab) [address] [place], [address], 09/16/2018 11:33:51 09/15/19 19 09/15/2018 CBC w/ auto diff neutrophil count 4.5 k/cu_ mm 1.1-6. 0 normal Not Available [facility] (Lab) [address] [place], [address], 09/16/2018 11:33:51 09/15/19 19 09/15/2018 CBC w/ auto diff lymphocyte count 1.6 k/cu_ mm 0.7-3. 4 normal Not Available [facility] (Lab) [address] [place], [address], 09/16/2018 11:33:51 09/15/19 19 09/15/2018 CBC w/ auto diff monocyte count 0.5 k/cu_ mm 0.3-1. 0 normal Not Available [facility] (Lab) [address] [place], [address], 09/16/2018 11:33:51 09/15/19 19 09/15/2018 CBC w/ auto diff eosinophil count 0.3 k/cu_ mm 0.0-0. 6 normal Not Available [facility] (Lab) [address] [place], [address], 09/16/2018 11:33:51 09/15/19 19 09/15/2018 CBC w/ auto diff basophil count 0.1 k/cu_ mm 0.0-0. 1 normal Not Available [facility] (Lab) [address], [place], [address], 09/16/2018 11:33:51 09/15/19 19 09/15/2018 CBC w/ auto diff nucleated RBC count 0.0 x10'3 /uL 0.0-0. 0 normal Not Available [facility] (Lab) [address] [facility] [place], [address], 09/16/2018 11:33:51 09/15/19 19 09/15/2018 CBC w/ auto diff automated percent immature granulocytes 0 % Not Available [facility] (Lab) [address] [place], [address], 09/16/2018 11:33:51 09/15/19 19 09/15/2018 CBC w/ auto diff automated absolute immature granulocytes 0.0 x10'3 /uL Not Available [facility] (Lab) [address] [place], [address], 09/16/2018 11:33:51 09/15/19 19 09/15/2018 TSH, serum or plasm a TSH 0.98 mciu/ mL 0.30-5 .00 normal Not Available [facility] (Lab) [address] [facility], [place], [address], 09/16/2018 11:33:51 09/15/19 19 09/15/2018 vitam in [...] have level s >150 ng/mL Not Available [facility] (Lab) [address] [facility], [place], [address], 09/16/2018 11:33:52 09/15/19 19 09/15/2018 HbA1c (hemo globi n A1c), blood hemoglobin A1C 5.8 perce nt 0.0-5. 6 high <5.7% Henny l 5.7 - 6.4% Incre ased risk for diabe noe >=6.5 % Diagn ostic of diabe noe <7.0% Goal of thera py >8.0% Actio n sugge sted Not Available [facility] (Lab) [address] [facility], [place], [address], 09/16/2018 11:33:52 03/02/20 17 elect rocar diogr am No observ ation record ed. Not Available 2017 12:23:22 07/27/19 18 elect rocar diogr am No observ ation record ed. rkundra Not Available 2017 23:53:31 07/27/19 18 young metry testi ng* No observ ation record ed. [email or web address] Not Available 2017 23:53:29 07/27/19 18 07/27/2017 imagi ng/di agnos tic resul t No observ ation record ed. rkundra [facility] [id number] [place], [address], 07/27/2017 23:53:49 07/28/19 18 07/27/2017 XR, hip + pelvi s, bilat eral No observ ation record ed. rkundra [facility] [id number] [place], [address], 09/17/2018 11:17:18 10/20/19 19 10/19/2018 XR, chest , 2 view No observ ation record ed. [email or web address] [facility] [id number], [place], [address], 10/19/2018 12:54:09 Result Notes None recorded. Problems Name Problem SNOMED Code Status Onset Date Resolution Date Notes Provider Name and Address Organization Details Recorded Time Disorder of lipid metaboli sm 495351436 Active 2014 Not Available [facility] 6 08:41:22 Closed fracture of carpal bone 7261567 Completed 201507/27/2015 Not Available [facility] 6 08:41:49 Hearing problem 782383184 Active 2014 Not Available [facility] 6 08:41:53 Disorder of calcium metaboli sm 46417515 Completed 201407/27/2017 Removal Reason: resolved ADIS Rudd Amy. 8 00:10:08 Benign essentia l hyperten juan antonio 6115549 Active 2013 Not Available [facility] 6 08:42:10 Fall on same level from slipping , tripping or stumblin g Completed 201407/27/2017 ADIS Rudd Amy. 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 8 00:09:43 Syncope 363121031 Completed 201307/27/2017 Removal Reason: resolved ADIS Rudd Amy. 8 00:09:24 Varicose veins of lower extremit y 95266891 Active 2014 Not Available [facility] 6 08:43:40 Vitamin D deficien 79132063 Active 2014 Not Available [facility] 6 08:43:43 Problem Notes None recorded. Procedures Surgical History Date Name Laterality Status Provider Name and Address Organization Details Recorded Time 9 [facility] completed Amy. Samina 019 11:09:34 8 [facility] completed Amy. Samina 018 11:38:33 7 [facility] completed Amy. Samina 017 11:30:00 4 Diagnostic colonoscopy completed Amy. Megan 07/28/2017 00:17:26 Imaging Results None recorded. Procedure Notes None recorded. Medical Equipment None [...] Details Last Updated DateTime 07/24/2016 157.48 cm 87515.53 g 20.9 kg/m2 Amy. Vance 07/24/2016 12:30:30 Date Recorded Body height Heart rate Oxygen [...] Details Last Updated DateTime 07/27/2017 23.6 kg/m2 20321.42 g 112 mm[Hg] 68 mm[Hg] Amy. Megan 07/28/2017 00:15:44 Date Recorded Body height Body mass index (BMI) Body weight Heart rate Oxygen saturation Oxygen saturation in Arterial blood by Pulse oximetry Systolic blood pressure Diastolic blood pressure Provider Name and Address Organization Details Last Updated DateTime 9 154.94 cm 22.3 kg/m2 75002.9 g 68 /min 92 % 92 % 132 mm[Hg] 78 mm[Hg] Amy. Samina 9 12:12:41 Date Recorded Body height Body mass index (BMI) Body weight Body temperature Systolic blood pressure Diastolic blood pressure Provider Name and Address Organization Details Last Updated DateTime 7 157.48 cm 21.2 kg/m2 59587.7 1 g 116 [degF] 150 mm[Hg] 90 mm[Hg] Amy. Samina 7 12:54:02 Social History Question Answer Notes LastModified by Organizat ion Details LastModified Time Tobacco Smoking Status Never Smoker ADIS Rudd Amy. 07/28/2017 00:08:30 What Was The Date Of Your Most Recent Tobacco Screening? 09/15/2018 Information n ot available 02/11/2019 How Many Years Have You Smoked Tobacco? 0 Information not available 09/17/2018 Sex: Unknown Functional Status Question Answer Note LastModified by Organizat ion Details LastModified Time What is your level of alcohol consumption? Moderate 2 to 3 glasses of wine Information not available 09/17/2018 Mental Status None recorded. Family History Relationship Description Onset Age of this Age Resolved Age Notes LastModified by Organization Details LastModified Time Father Congestive heart failure 65 [email or web address] Not available 2018 11:23:40 Mother Malignant neoplasm of lung 63 second hand smoke exposu [...] virus, trivalent, preservative 4 completed Not Available [facility] 08/20/2019 02:20:52 zoster live 1 completed Not Available [facility] 11/14/2016 02:36:12 pneumococcal polysaccharide PPV23 1 completed ADIS Rudd Amy. 07/28/2017 00:14:25 Pneumococcal conjugate PCV 13 6 completed Not Available [facility] 08/20/2019 02:20:52 influenza, unspecified formulation 6 completed ADIS Booth Amy. 07/24/2016 13:34:51 Tdap 7 ADIS Martinez Amy. 07/27/2017 23:56:37 Influenza, split virus, quadrivalent, preservative 7 ADIS Martinez Amy. 07/28/2017 00:13:05 Past Encounters Encounter ID Performer Location Encounter Start Date Encounter Closed Date Diagnosis/Indication Diagnosis SNOMED-CT Code Diagnosis ICD10 Code Diagnosis Note [id number] [address] Office [address] [place] [address] [id number] 5 03/13/2014 00:00:00 [id number] Main Office [address] [place] [address] [id number] 5 07/19/2014 00:00:00 [id number] Kristofer Fernandez MD Main Office [address] [place] [address] [id number] 5 07/24/2016 11:29:17 07/24/2016 19:54:39 [id number] Kristofer Fernandez MD Main Office [address] [place] [address] [id number] 5 02/13/2017 12:51:05 02/13/2017 13:37:59 Postmenopausal osteoporosis 297639510 M81.[address] Basilio, belén check for pth and prior treatments Benign ess ential hypertension 9644897 I10 well controlled with losartan Pre-surger y evaluation 833420161 Z01.818 no evidence of cardiac insufficie ncy or cad. Low risk for surgery [id number] Janak Villaseñor MD Main Office [address] [place] [address] [id number] 5 07/27/2017 11:35:10 08/05/2017 21:45:12 Adult health examination 825842979 Z00.00 She is having right hip pain intermitte ntly. An x-ray of the hip was normal and we discussed changing her work chair, sitting position, possibly using an adjustable height desk and clam shell exercise to improve the presumed piriformis muscle pain. She was asked to update me on the issue after her trip. I gave her a copy of the Carman Diet book, although her diet is extremely [...] reviewed and note ammended with the results. [id number] Janak Villaseñor MD Main Office [address] [place] [address],[address] [id number] 5 09/15/2018 11:08:47 09/22/2018 15:28:13 Adult health examination 943686590 Z00.00 Changes were made to your blood [...] vaccine is available at your local pharmacy.Sosa sarkarSheila Jim's records indicate you had a colonoscop y [...] Name 07/24/2016 1 MEDICARE B-[place] Brooke Cruz [id number] -A Brooke Roth Nancy 02/13/2017 1 MEDICARE B-[place] Brooke Cruz [id number] -A Brooke Cruz 07/27/2017 1 MEDICARE B-[place] Brooke Cruz [id number] -A Brooke Roth Cruz 09/15/2018 1 MEDICARE B-[place] Brooke Cruz [id number] -A Brooke Cruz Notes Date Note Type Note Provider Name and Address Organization Details Recorded Time 07/24/2016 text/html Patient is here for the [facility] Wellness Program. During this visit we will review and discuss their Health Risk Assessment and review the various tests and procedures performed as part of the [facility] Annual Wellness Program. The patient has no [...] after forteo and is now returning to foscurtisxSocial hx: no tobacco Janak Villaseñor ADIS gallardo [...] the home Patient is here for the [facility] Wellness Program and Subsequent Annual Wellness Exam. During this visit we will review and discuss their Health Risk Assessment and review the various tests and procedures performed as part of the [facility] Annual Wellness Exam. The patient has no [...] I gave her a copy of the Carman Diet book, although her diet is extremely [...] the home Patient is here for the [facility] Wellness Program and Subsequent Annual Wellness Exam. During this visit we will review and discuss their Health Risk Assessment and review the various tests and procedures performed as part of the [facility] Annual Wellness Exam. The patient has no [...]
--- OUTSIDE RECORDS SUMMARY | 2024-12-27 10:52 | XMS_ITS | Referral Summary ---
Author Organization [facility] Address [address] [place] [address] Care Team Providers Care Automatic Screwmaker Name Role Phone Albert Taylor MD Primary Care Provider [phone] Allergies No known active allergies Medications multivitamin [...] Comments Blood Pressure 139/78 07/26/2019 7:54 AM DEBLOCKER Pulse 59 07/26/2019 7:54 AM DEBLOCKER Temperature 36.8 C (98.2 F) 07/26/2019 7:54 AM DEBLOCKER Respiratory Rate - - Oxygen Saturation - - Inhaled Oxygen Concentration - - Weight 50.9 kg (112 lb 3.2 oz) 07/26/2019 7:54 A M DEBLOCKER Height 154.4 cm (5' 0.8) 07/26/2019 7:54 AM DEBLOCKER Body Mass Index 21.34 07/26/2019 7:54 AM DEBLOCKER Plan of Treatment Not on file Insurance MEDICARE [facility] [place] Care Teams Automatic Screwmaker Relationship Specialty Start Date End Date Albert Taylor MD [address] [facility] [address] [place] [address] PCP - General Internal Medicine 12/02/18
[2024-12-27 16:18] LABS: Add Urine Microscopic? NO; Appearance Urine Clear (Clear); Bilirubin Urine Negative (Negative); Blood Urine Negative (Negative); Color Urine Yellow (Yellow); Glucose Urine UA Negative (Negative); Ketones Urine Negative (Negative); Leukocyte Esterase Ur Negative LEU/UL (Negative); Nitrate Urine Negative (Negative); Protein Urine Negative (Negative); Urobilinogen Urine 0.2 mg/dL (<2.0); pH Urine 7.5 (5.0-9.0)
[2024-12-27 16:35] LABS: Hemoglobin A1C 5.6 % (<5.7)
[2024-12-27 16:52] LABS: Alanine Aminotransferase 22 U/L (6-35); Albumin Level 4.6 g/dL (3.5-5.1); Alkaline Phosphatase 73 U/L (38-126); Anion Gap 9 mmol/L (4-12); Aspartate Amino Transferase 56 U/L (14-36); Bilirubin,Total 0.5 mg/dL (0.2-1.3); Blood Urea Nitrogen 22 mg/dL (7-17); Carbon Dioxide 27 mmol/L (22-30); Chloride 95 mmol/L (98-107); Cholesterol 237 mg/dL (0-200); Estimated Glomerular Filt Rate > 60; Free T4 Free Thyroxine 0.76 ng/dL (0.78-2.19); Glucose 76 mg/dL (65-110); HDL Direct 98 mg/dL; Potassium 4.3 mmol/L (3.4-5.0); Sodium 131 mmol/L (137-145); Total Protein 7.5 g/dL (6.3-8.2); Triglycerides 141 mg/dL (<150); Vitamin D 25 Hydroxy 69.1 ng/mL
[2024-12-27 17:19] LABS: LDL Cholesterol Direct 96 mg/dL
[2024-12-27 17:20] LABS: Basophils Absolute Auto 0.1 K/mm3 (0.0-0.1); Basophils Percent Auto 1.1 % (0.2-1.2); Eosinophils Absolute Auto 0.4 K/mm3 (0-0.3); Eosinophils Percent Auto 5.4 % (0-4.4); Hematocrit 43.1 % (37.0-47.0); Hemoglobin 13.7 g/dL (12.0-15.0); Immature Granulocyte Absolute 0.04 K/mm3 (0.00-0.031); Immature Granulocyte Percent A 0.6 % (0-0.5); Lymphocytes Absolute Auto 1.33 K/mm3 (0.9-3.2); Lymphocytes Percent Auto 19.1 % (18.3-44.2); Mean Corpuscular HGB Conc 31.8 g/dl (32-36); Mean Corpuscular Hemoglobin 31.5 pg (26-34); Mean Corpuscular Volume 99.1 fl (80-100); Mean Platelet Volume 10.6 fl (7.4-10.4); Monocytes Absolute Auto 0.7 K/mm3 (0.1-0.6); Monocytes Percent Auto 9.3 % (2.6-8.5); Neutrophils Absolute Auto 4.5 K/mm3 (1.3-6.7); Neutrophils Percent Auto 64.5 % (45.5-73.1); Platelet Count Result 319 k/mm3 (150-375); Red Blood Count 4.35 M/mm3 (4.2-5.4); Red Cell Distribution Width 13.2 % (11.5-14.5)
[2024-12-27 18:39] LABS: Folic Acid > 20.0 ng/mL (2.76->20)
== END 2024-12-27 10:00 | disposition home or self-care (01) ==
LOC: ANHGOSHLAB 10:00
PROVIDERS: PCP Internal Medicine; Visit Provider Internal Medicine
DX: M81.0 Age-related osteoporosis without current pathological fracture (principal); E78.5 Hyperlipidemia, unspecified; I10 Essential (primary) hypertension; Z79.899 Other long term (current) drug therapy; R73.03 Prediabetes; E53.8 Deficiency of other specified B group vitamins; E55.9 Vitamin D deficiency, unspecified
CPT/HCPCS: 36415; 80053; 80061; 81003; 82306; 82607; 82746; 83036; 84439; 84443; 85025

== ENCOUNTER 2025-01-09 08:26 | Outpatient (CLI) | payer MEDICARE, SELFPAY ==
[2025-01-11 14:20] LABS: Thyroid Peroxidase Antibodies. 1 IU/mL (<9)
[2025-01-11 16:14] LABS: Thyroglobulin 4.4 ng/mL; Thyroglobulin Antibodies <1 IU/mL (< or = 1)
== END 2025-01-09 08:27 | disposition home or self-care (01) ==
LOC: ANHGOSHLAB 08:29
PROVIDERS: PCP Internal Medicine; Visit Provider Internal Medicine
DX: R94.6 Abnormal results of thyroid function studies (principal)
CPT/HCPCS: 36415; 84432; 84481; 86376; 86800

== ENCOUNTER 2025-01-10 15:19 | Outpatient (CLI) | payer MEDICARE, SELFPAY ==
--- NOTE | ~2025-01-10 | US_ITS ---
EXAMINATION: US thyroid DATE: 01/10/2025 15:31 INDICATION: Abnormal thyroid function testing TECHNIQUE: Multiple ultrasound images of the thyroid were obtained. COMPARISON: None. FINDINGS: The right thyroid lobe measures 3.2 x 1.6 x 1.8 cm. The left thyroid lobe measures 2.8 x 1.2 x 1.3 cm. The isthmus measures 0.3cm in anterior to posterior dimension. There is otherwise normal echotexture and echogenicity throughout the remainder of the thyroid gland. No discrete nodules identified. Increased vascular flow is present. IMPRESSION: Hypervascular thyroid gland suggesting Graves' disease versus chronic lymphocytic thyroiditis (Hashim destiny's disease). Reviewed, dictated and finalized at location A. IMPRESSION: Hypervascular thyroid gland suggesting Graves' disease versus chronic lymphocyt ic thyroiditis (Karolina's disease).
== END 2025-01-10 15:20 | disposition home or self-care (01) ==
LOC: GOSHIMG 15:20
PROVIDERS: PCP Internal Medicine; Visit Provider Internal Medicine
DX: R94.6 Abnormal results of thyroid function studies (principal)
CPT/HCPCS: 76536

== ENCOUNTER 2025-01-16 09:20 | Outpatient (CLI) | payer MEDICARE, SELFPAY ==
--- NOTE | ~2025-01-16 | NM_ITS ---
EXAMINATION: NM stress w perf spect multi DATE: 01/16/2025 11:48 INDICATION: Other forms of dyspnea TECHNIQUE: Rest images were obtained following intravenous administration of 10.9 mCi Tc99m tetrofosm in (Myoview). The patient performed an exercise activity. At peak exercise, 34.3 mCi Tc99m tetrofosmi n (Myoview) was administered intravenously, and stress images were obtained. Data was reconstructed i nto short axis and horizontal and vertical long axis SPECT images. Gated SPECT images were also obtai fan. COMPARISON: None. FINDINGS: There is normal left ventricular perfusion without definite evidence of reversible or fixed perfusion abnormality to suggest ischemia or infarction. There is normal left ventricular chamber size, wall motion and ejection fraction. Left ventricular ejection fraction measures 49%. IMPRESSION: 1. Normal myocardial perfusion at rest and during stress. 2. Left ventricular ejection fraction measuring 49%. Reviewed, dictated and finalized at location B.
--- NOTE | 2025-01-16 09:28 | EST_ITS ---
Patient Info Name: Brooke Cruz Age: 79 years : 1945 Gender: Female Ht: 61 in Wt: 112 lbs BSA: 1.48 m2 HR: 51 bpm BP: 154 / 79 mmHg Exam Date: 01/16/2025 9:28 AM Patient Status: O Admit Date: 01/16/2025 Exam Type: CA stress test treadmill w NM A nuclear stress test was performed. Staff Referring Physician: Albert Taylor MD Attending Provider: Albert Taylor MD Exercise Technologist: Leola Luna Exercise Physician: Idris Naranjo DO Summary 1. 1. Negative Abdulkadir exercise stress test for ischemic ST changes by ECG criteria. 2. 2. Good functional capacity, achieving 7 METs of workload. 3. 3. Appropriate HR response to exercise. 4. 4. Appropriate HR recovery at 1 minute post exercise. 5. 5. Nuclear scan to follow and will be reported separately. Please correlate with it. 6. 6. Patient informed of the above results. Protocol: Abdulkadir Stress ECG Details Stage: REST Duration (min): 2 min : 23 sec Speed (mph): 0.0 Grade (%): 0 HR (bpm): 50 SBP (mmHg): 154 DBP (mmHg): 79 METS: --- Stage: REST Duration (min): 12 min : 35 sec Speed (mph): 0.0 Grade (%): 0 HR (bpm): 63 SBP (mmHg): 154 DBP (mmHg): 79 METS: --- Stage: STAGE 1 Duration (min): 1 min : 0 sec Speed (mph): 1.7 Grade (%): 10 HR (bpm): 93 SBP (mmHg): 154 DBP (mmHg): 79 METS: --- Stage: STAGE 1 Duration (min): 2 min : 0 sec Speed (mph): 1.7 Grade (%): 10 HR (bpm): 101 SBP (mmHg): 154 DBP (mmHg): 79 METS: --- Stage: STAGE 1 Duration (min): 3 min : 0 sec Speed (mph): 1.7 Grade (%): 10 HR (bpm): 104 SBP (mmHg): 160 DBP (mmHg): 119 METS: --- Stage: STAGE 2 Duration (min): 1 min : 0 sec Speed (mph): 2.5 Grade (%): 12 HR (bpm): 105 SBP (mmHg): 160 DBP (mmHg): 119 METS: --- Stage: STAGE 2 Duration (min): 2 min : 0 sec Speed (mph): 2.5 Grade (%): 12 HR (bpm): 117 SBP (mmHg): 116 DBP (mmHg): 41 METS: --- Stage: STAGE 2 Duration (min): 2 min : 30 sec Speed (mph): 2.5 Grade (%): 12 HR (bpm): 125 SBP (mmHg): 116 DBP (mmHg): 41 METS: --- Stage: RECOVERY Duration (min): 0 min : 29 sec Speed (mph): 0.0 Grade (%): 0 HR (bpm): 117 SBP (mmHg): 116 DBP (mmHg): 41 METS: --- Stage: RECOVERY Duration (min): 1 min : 29 sec Speed (mph): 0.0 Grade (%): 0 HR (bpm): 88 SBP (mmHg): 116 DBP (mmHg): 41 METS: --- Stage: RECOVERY Duration (min): 2 min : 29 sec Speed (mph): 0.0 Grade (%): 0 HR (bpm): 74 SBP (mmHg): 116 DBP (mmHg): 41 METS: --- Stage: RECOVERY Duration (min): 3 min : 29 sec Speed (mph): 0.0 Grade (%): 0 HR (bpm): 74 SBP (mmHg): 116 DBP (mmHg): 41 METS: --- Stage: RECOVERY Duration (min): 3 min : 32 sec Speed (mph): 0.0 Grade (%): 0 HR (bpm): 74 SBP (mmHg): 116 DBP (mmHg): 41 METS: --- Rest HR: 63 bpm Peak HR: 125 bpm Rest Sys BP: 154 mmHg Peak Sys BP: 160 mmHg Max Pred HR: 141 bpm % Max Pred HR: 89 % Target HR: 120 bpm Max RPP: 20,000 bpm*mmHg Bui Score: 1 Termination Reason: Reached target heart rate or workload Cardiac Symptoms: Shortness of breath Max ST Seg Deviation: -1.00 mm Total Time: 5 min : 30 sec Rest Gómez BP: 79 mmHg Peak Gómez BP: 119 mmHg Angina Score: None Total METS: 7.1 Resting ECG Sinus rhythm. Stress ECG No ST changes. Arrhythmias None. Report Signatures
== END 2025-01-16 09:21 | disposition home or self-care (01) ==
PROVIDERS: PCP Internal Medicine; Visit Provider Internal Medicine
DX: R94.31 Abnormal electrocardiogram [ECG] [EKG] (principal); R06.09 Other forms of dyspnea
CPT/HCPCS: 78452; 93017; A9502

== ENCOUNTER 2025-07-03 11:52 | Outpatient (CLI) | payer MEDICARE, SELFPAY ==
--- NOTE | ~2025-07-03 | XR_ITS ---
EXAMINATION: XR chest 2V, 07/03/2025 12:05 SODA ROOM OPERATOR HISTORY: R05.3 - Chronic cough COMPARISON: No comparisons available. Technique: 2 views obtained. Findings: The lungs are clear, no effusion. No pneumothorax. Heart is normal size. Mediastinal and hilar contours are within normal limits. Bony thorax no acute abnormality. Impression: No acute cardiopulmonary abnormality. Reviewed, dictated and finalized at location P. ROOM OPERATOR Impression: No acute cardiopulmonary abnormality.
== END 2025-07-03 11:53 | disposition home or self-care (01) ==
PROVIDERS: PCP Internal Medicine; Visit Provider Internal Medicine
DX: R05.3 Chronic cough (principal)
CPT/HCPCS: 71046

== ENCOUNTER 2025-07-04 12:48 | Outpatient (CLI) | payer MEDICARE, SELFPAY ==
--- OUTSIDE RECORDS SUMMARY | 2025-07-04 14:47 | XMS_ITS | Clinical Summary ---
Author Organization [facility] [employer] Address [address] [facility] [place] [address] Care Team Providers Care Managing Member Name Role Phone Janak Villaseñor MD Primary Care Provider [phone] Source Comments [employer],non-owned Affiliates and Associated Physician Practices is amultiple site organization consisting of ambulatory clinics and hospital sitesin [place], [place], [place] and [place]. This disclosure is being madepursuant to the Care Everywhere program and may not contain all information available regarding this patient. Last updated 18.[employer] Allergies No known active allergies Medications * [...] yrs (1 - 1-dose 75+ series) 2020 DEPRESSION SCREENING 07/20/2024 COVID-19 VACCINE ( - 2024-2 6 season) 2025 INFLUENZA VACCINE (#1) 2025 HEPATITIS B VACCINE Aged Out No [...] this topic Medical Devices Implanted Type Area Medical Photographer Device Identifier Shelf Expiration Date Model / Serial / Lot Graft Tissue Xenform Ftl Bvn Drml Mtrx - Sgtin [id number] Implanted:Qty: 1 on 03/18/2017 by Dennis Ahmadi MD at [facility] [employer] 11/16/2018 [id number] / GTIN [id number] / [id number] Description:Implanted into a nterior vaginal wall. Sys Ureth Supp Obtryx Midurethral Trnstr - Sgtin [id number] Implanted:Qty: 1 on 03/18/2017 by Dennis Ahmadi MD at [facility] [employer] 07/31/2019 [id number] / GTIN [id number] / [id number] [place] [address] MEDICARE AET Advance Directives * Full Code (Latest Code Status on File) Date Activated Date Inactivated Comments 03/18/2017 5:44 PM 03/19/2017 4:02 PM Care Teams Managing Member Relationship Specialty Start Date End Date Janak Villaseñor MD PCP - General Internal Medicine 03/18/17
--- OUTSIDE RECORDS SUMMARY | 2025-07-04 14:47 | XMS_ITS | Encounter Summary ---
Author Organization [facility] Address [address] [place] [address] Care Team Providers Care Pig Sticker Name Role Phone Janak Villaseñor MD Primary Care Provider [phone] Encounter Details Date Type Department Care Team (Late st Contact Info) Description 01/22/2024 Lab Requisition [facility] - DermPath Lab [address] [place] [id number] Kristofer Farley MD [address] [place] [address] Social History Tobacco Use Types Packs/Day Years [...] AM CDT) Case Report Dermatopathology Report Case: [id number] Authorizing Provider: Kristofer Farley MD Collected: 01/19/2024 12:00 AM Ordering Location: [facility] - Received: 01/22/2024 08:24 AM [...] specimen consists of a shave biopsy measuring 03x05m0 mm. Jar 0. 4:45 PM CDT DERMATOPATHOLOGY [...] characteristic determined by the Dermatopathology Laboratory at [facility], directed by Dr. Ricki Adams. These tests need not be, and therefore are not, approved by the [place] Food and Drug Administration. The tests are used for clinical purposes. Billing Codes Specimen Charges Stain Charges 82734 1 4:45 PM CDT DERMATOPATHOLOGY LABORATORY Embedded Images 4:45 PM CDT DERMATOPATHOLOGY LABORATORY Pathology/Cytolog y TISSUE SPECIMEN FROM SKIN / Unknown 01/19/2024 01/22/2024 8:24 AM CDT us Kristofer Farley MD LAB - PATHOLOGY/CYTOLOGY ORD ERABLES Final Result DERMATOPATHOLOGY LABORATORY [facility] - Department of Dermatology [address] [phone] documented in this encounter Visit Diagnoses Not on filedocumented in this encounter Care Teams Pig Sticker Relationship Specialty Start Date End Date Janak Villaseñor MD PCP - General Internal Medicine 03/18/17 documented as of this encounter
--- OUTSIDE RECORDS SUMMARY | 2025-07-04 14:47 | XMS_ITS | Clinical Summary ---
Author Organization [facility] Address [address] [place] [id number] Care Team Providers Care Self Pay Representative Name Role Phone Albert Taylor MD Primary Care Provider [phone] Allergies No known active allergies Medications multivitamin [...] Comments Blood Pressure 139/78 07/26/2019 7:54 AM ARTISTIC DIRECTOR Pulse 59 07/26/2019 7:54 AM ARTISTIC DIRECTOR Temperature 36.8 C (98.2 F) 07/26/2019 7:54 AM ARTISTIC DIRECTOR Respiratory Rate - - Oxygen Saturation - - Inhaled Oxygen Concentration - - Weight 50.9 kg (112 lb 3.2 oz) 07/26/2019 7:54 A M ARTISTIC DIRECTOR Height 154.4 cm (5' 0.8) 07/26/2019 7:54 AM ARTISTIC DIRECTOR Body Mass Index 21.34 07/26/2019 7:54 AM ARTISTIC DIRECTOR Plan of Treatment Not on file Insurance [employer] [facility] [place] Care Teams Self Pay Representative Relationship Specialty Start Date End Date Albert Taylor MD PCP - General Internal Medicine 12/02/18
[2025-07-04 19:22] LABS: Alanine Aminotransferase 21 U/L (6-35); Albumin Level 4.6 g/dL (3.5-5.1); Alkaline Phosphatase 88 U/L (38-126); Anion Gap 7 mmol/L (4-12); Aspartate Amino Transferase 33 U/L (14-36); Bilirubin,Total 0.5 mg/dL (0.2-1.3); Blood Urea Nitrogen 24 mg/dL (7-17); Calcium 9.8 mg/dL (8.4-10.2); Carbon Dioxide 27 mmol/L (22-30); Chloride 100 mmol/L (98-107); Cholesterol 217 mg/dL (0-200); Estimated Glomerular Filt Rate > 60; Glucose 117 mg/dL (65-110); HDL Direct 82 mg/dL; Potassium 4.2 mmol/L (3.4-5.0); Sodium 134 mmol/L (137-145); Total Protein 7.8 g/dL (6.3-8.2); Triglycerides 97 mg/dL (<150)
[2025-07-04 19:40] LABS: Free T4 Free Thyroxine 0.82 ng/dL (0.78-2.19)
[2025-07-04 19:58] LABS: Thyroid Stimulating Hormone 0.942 uIU/mL (0.465-4.680)
== END 2025-07-04 12:49 | disposition home or self-care (01) ==
PROVIDERS: PCP Internal Medicine; Visit Provider Internal Medicine
DX: E78.5 Hyperlipidemia, unspecified (principal); R94.6 Abnormal results of thyroid function studies; I10 Essential (primary) hypertension
CPT/HCPCS: 36415; 80053; 80061; 84439; 84443